=== PATIENT | male | born 1940 | race Two or more races ===

== ENCOUNTER 2016-11-18 07:25 | Inpatient (IN) | payer MEDICAID ==
[~2016-11-18] VITALS: Ht 172.7 cm; Wt 87.1 kg
--- NOTE | 2016-11-18 07:35 | Emergency Room Report ---
History of Present Illness General Chief Complaint: Abnormal Labs Source: Medical Record, EMS Present Illness HPI Patient is a 76-year-old male brought in by EMS for abnormal laboratory values. Patient is trach and vent dependent. Patient had the previously been noted to have elevated BUN/creatinine. 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 He recently finished Bactrim. The patient was noted to be making urine. Patient had not been having any black stools. He had not been vomiting. The patient reportedly had prior history of anemia Allergies: Coded Allergies: PIPERACILLIN (Verified Allergy, Unknown, 11/18/16) TAZOBACTAM (Verified Allergy, Unknown, 11/18/16) Patient History Past Medical History: see triage record Reviewed Nursing Documentation: PMH: Agreed, PSxH: Agreed Review of Systems All Other Systems: negative except mentioned in HPI Physical Exam Vital Signs Date Time Temp Pulse Resp B/P Pulse Ox O2 Delivery O2 Flow Rate FiO2 11/18/16 07:19 102 20 115/66 98 Mechanical Ventilator 100 Sp02 EP Interpretation: reviewed, normal General Appearance: normal inspection, no apparent distress, alert, Chronically Ill Head: atraumatic ENT: normal ENT inspection Neck: normal inspection, supple, no bony tend, tracheotomy Respiratory: normal inspection, lungs clear, normal breath sounds, no respiratory distress, no retraction, no wheezing Cardiovascular #1: regular rate, rhythm, edema Gastrointestinal: normal inspection, normal bowel sounds, no guarding, no hernia, other - gtube c/d/i Genitourinary: no CVA tenderness, other - scrotal edema Musculoskeletal: normal inspection, back normal, normal range of motion Neurologic: motor weakness - bilateral extensor contracture lower extremity, slight hand edema Psychiatric: other Skin: normal inspection, normal color, no rash Medical Decision Making Diagnostic Impression: Primary Impression: Acute kidney injury Additional Impressions: Urinary tract infection Ventilator dependent Feeding by G-tube Anemia Scrotal edema ER Course Patient presented for abnormal laboratory value. Differential diagnosis included but was not limited to acute renal injury, dehydration, prerenal azotemia, GI bleeding among others. Because of complexity of patient's case laboratory testing and imaging studies were ordered. The patient was noted be taken vent dependent he was started on mechanical ventilation. Laboratory testing was ordered.The patient was given IV antibiotics. Patient was noted to be moderately anemic. The BUN was noted be markedly elevated. Patient had guaiac-negative stool. Stool is light in color. The patient noted have some urinary tract infection. He was given antibiotics.Dr. Wise was contacted for inpatient management due to complexity of medical condition. Labs Test 11/18/16 07:42 11/18/16 08:00 White Blood Count 10.9 K/UL (4.8-10.8) Red Blood Count 3.11 M/UL (4.70-6.10) Hemoglobin 8.2 G/DL (14.2-18.0) Hematocrit 24.6 % (42.0-52.0) Mean Corpuscular Volume 79 FL (80-99) Mean Corpuscular Hemoglobin 26.5 PG (27.0-31.0) Mean Corpuscular Hemoglobin Concent 33.4 G/DL (32.0-36.0) Red Cell Distribution Width 16.3 % (11.6-14.8) Platelet Count 607 K/UL (150-450) Mean Platelet Volume 7.1 FL (6.5-10.1) Neutrophils (%) (Auto) 67.7 % (45.0-75.0) Lymphocytes (%) (Auto) 12.2 % (20.0-45.0) Monocytes (%) (Auto) 15.7 % (1.0-10.0) Eosinophils (%) (Auto) 3.0 % (0.0-3.0) Basophils (%) (Auto) 1.4 % (0.0-2.0) Sodium Level 129 mEQ/L (135-145) Potassium Level 3.9 mEQ/L (3.4-4.9) Chloride Level 87 mEQ/L (98-107) Carbon Dioxide Level 25 mEQ/L (20-30) Anion Gap 17 (5-15) Blood Urea Nitrogen 158 mg/dL (7-23) Creatinine 1.7 mg/dL (0.7-1.2) Estimat Glomerular Filtration Rate mL/min (>60) Glucose Level 142 mg/dL (74-106) Lactic Acid Level 1.60 mmol/L (0.66-2.22) Calcium Level 9.7 mg/dL (8.6-10.2) Total Bilirubin 0.5 mg/dL (0.0-1.2) Aspartate Amino Transf (AST/SGOT) 54 U/L (5-40) Alanine Aminotransferase (ALT/SGPT) 32 U/L (3-41) Alkaline Phosphatase 449 U/L (40-129) Total Creatine Kinase 23 U/L (38-174) Creatine Kinase MB 2.0 ng/mL (< 6.7) Creatine Kinase MB Relative Index 8.6 Troponin I < 0.30 ng/mL (<=0.30) Total Protein 6.4 g/dL (6.6-8.7) Albumin 2.2 g/dL (3.5-5.2) Globulin 4.2 g/dL Albumin/Globulin Ratio 0.5 (1.0-2.7) Urine Color Yellow Urine Appearance Clear Urine pH 5 (4.5-8.0) Urine Specific [place] 1.010 (1.005-1.035) Urine Protein 1+ (NEGATIVE) Urine Glucose (UA) Negative (NEGATIVE) Urine Ketones Negative (NEGATIVE) Urine Occult Blood 1+ (NEGATIVE) Urine Nitrite Negative (NEGATIVE) Urine Bilirubin Negative (NEGATIVE) Urine Urobilinogen Normal MG/DL (0.0-1.0) Urine Leukocyte Esterase 3+ (NEGATIVE) Urine RBC 2-4 /HPF (0 - 0) Urine WBC 5-10 /HPF (0 - 0) Urine Squamous Epithelial Cells Occasional /LPF Urine Amorphous Sediment Few /LPF (NONE) Urine Bacteria Few /HPF (NONE) Urine Yeast Few /HPF (NONE) EKG Diagnostic Results Rate: tachycardiac Rhythm: NSR ST Segments: no acute changes Rhythm Strip Diag. Results EP Interpretation: yes Rhythm: NSR, no PVC's, no ectopy Last Vital Signs Date Time Temp Pulse Resp B/P Pulse Ox O2 Delivery O2 Flow Rate FiO2 11/18/16 07:19 102 20 115/66 98 Mechanical Ventilator 100 Status: unchanged Disposition: ADMITTED INPATIENT Condition: Estiven Avalos Nov 18, 2016 07:35
[2016-11-18 07:56] LABS: BASOPHILS % (AUTO) 1.4 % (0.0-2.0); LYMPHOCYTES % (AUTO) 12.2 % (20.0-45.0); MEAN CORPUSCULAR HEMOGLOBIN 26.5 PG (27.0-31.0); MEAN CORPUSCULAR HGB CONC 33.4 G/DL (32.0-36.0); MEAN CORPUSCULAR VOLUME 79 FL (80-99); MEAN PLATELET VOLUME 7.1 FL (6.5-10.1); MONOCYTES % (AUTO) 15.7 % (1.0-10.0); NEUTROPHILS % (AUTO) 67.7 % (45.0-75.0); PLATELET COUNT 607 K/UL (150-450); RED BLOOD COUNT 3.11 M/UL (4.70-6.10); RED CELL DISTRIBUTION WIDTH 16.3 % (11.6-14.8); WHITE BLOOD COUNT 10.9 K/UL (4.8-10.8)
[2016-11-18] MEDS ORDERED: ARTIFICIAL TEAR15 ML BOTH EYES (08:00)
[2016-11-18] MEDS ORDERED: FERROUS FUMARA324 M1 GT (08:00)
[2016-11-18] MEDS ORDERED: PROCRIT10000 UNIT SUBQ (08:00)
[2016-11-18] MEDS ORDERED: ASPIRIN81 MG GT (08:00)
[2016-11-18] MEDS ORDERED: HYDRALAZINE HCL50 MG GT (08:00)
[2016-11-18] MEDS ORDERED: acetaminophen GT (08:00)
[2016-11-18] MEDS ORDERED: LOVENOX10 M4 SUBQ (08:00)
[2016-11-18] MEDS ORDERED: NEXIUM40 MG GT (08:00)
[2016-11-18] MEDS ORDERED: FLEET ENEMA133 ML RECTAL (08:00)
[2016-11-18 08:05] LABS: ALANINE AMINOTRANSFERASE 32 U/L (3-41); ALBUMIN/GLOBULIN RATIO 0.5 (1.0-2.7); ANION GAP 17 (5-15); ASPARTATE AMINO TRANSFERASE 54 U/L (5-40); CALCIUM 9.7 mg/dL (8.6-10.2); CARBON DIOXIDE 25 mEQ/L (20-30); CHLORIDE 87 mEQ/L (98-107); CREATININE 1.7 mg/dL (0.7-1.2); HEMOLYSIS 29; POTASSIUM 3.9 mEQ/L (3.4-4.9); SODIUM 129 mEQ/L (135-145); TOTAL PROTEIN 6.4 g/dL (6.6-8.7); TROPONIN I < 0.30 ng/mL (<=0.30)
[2016-11-18] MEDS ORDERED: TAMSULOSIN HCL0.4 MG GT (08:05)
[2016-11-18] MEDS ORDERED: ZOFRAN4 M3 GT (08:05)
[2016-11-18] MEDS ORDERED: LACTINEX CHEWA1 EACH GT (08:05)
[2016-11-18] MEDS ORDERED: METOPROLOL TART50 M1 GT (08:05)
[2016-11-18] MEDS ORDERED: ZINC SULFATE220 M1 GT (08:05)
[2016-11-18] MEDS ORDERED: METHIMAZOLE5 MG GT (08:05)
[2016-11-18] MEDS ORDERED: LACTULOSE20 GM/301 GT (08:05)
[2016-11-18] MEDS ORDERED: MIRALAX17 G2 GT (08:05)
[2016-11-18 08:14] VITALS: BP 129/63
[2016-11-18 08:15] LABS: APPEARANCE,URINE CLEAR; KETONES,URINE NEGATIVE (NEGATIVE); LEUKOCYTE ESTERASE ,URINE 3+ (NEGATIVE); NITRITE,URINE NEGATIVE (NEGATIVE); PH,URINE 5 (4.5-8.0); PROTEIN,URINE 1+ (NEGATIVE); UROBILINOGEN,URINE NORMAL MG/DL (0.0-1.0)
[2016-11-18 08:26] LABS: AMORPHOUS SEDIMENT,UR FEW /LPF; BACTERIA,URINE FEW /HPF; SQUAMOUS EPITHELIAL CELL,UR OCCASIONAL /LPF (NONE/OCC); YEAST,URINE FEW /HPF
[2016-11-18 08:30] VITALS: BP 133/72
[2016-11-18] MEDS ORDERED: Miralax 17gm pkt ORAL PRN (09:45)
[2016-11-18] MEDS ORDERED: LORazepam Inj 2mg/ml 1ml IV PRN (09:45)
[2016-11-18] MEDS ORDERED: Morphine Sulfate 4mg/ml Inj IVP PRN (09:45)
[2016-11-18] MEDS ORDERED: DuoNeb 0.5-3(2.5)mg/3ml neb HHN PRN (09:45)
[2016-11-18] MEDS ORDERED: cefTRIAXone 1 GM in D5W 55 ML IVPB ONE (10:00)
[2016-11-18 10:30] VITALS: BP 141/73
--- NOTE | 2016-11-18 10:57 | Diagnostic Imaging Report ---
Indication: Dyspnea Comparison: None A single view chest radiograph was obtained. Findings: Pulmonary edema demonstrated with moderate bilateral pleural effusions, cardiomegaly and tracheostomy. The bones are osteopenic. Impression: Interstitial pulmonary edema. Moderate bilateral pleural effusion suspected
--- NOTE | 2016-11-18 11:01 | History and Physical ---
History of Present Illness General Date patient seen: Nov 18, 2016 Reason for Hospitalization: Abnormal Labs Present Illness HPI 76-year-old male with hx of chronic trach/vent/peg, anoxic brain injury after cardiac arrest, bed bound in detention brought in by EMS for abnormal laboratory values. He was found be severely anemia with very high BUN/ creatinine and bilateral large pleural effusion. Pt can't give any history. Looks extremely cachectic and chronically ill. Allergies: Coded Allergies: PIPERACILLIN (Verified Allergy, Unknown, 11/18/16) TAZOBACTAM (Verified Allergy, Unknown, 11/18/16) Medication History Scheduled Acidophilus/Bulgaricus (Lactinex Chewable Tablet), 1 EACH GT THREE TIMES A DAY, (Reported) Aspirin* (Aspirin*), 81 MG GT DAILY, (Reported) Dextran 70/Hypromellose (Artificial Tears Eye Drops*), 1 DROP BOTH EYES BID, ( Reported) Enoxaparin* (Lovenox*), 40 MG SUBQ DAILY, (Reported) Epoetin Anish (Procrit), 10,000 UNIT SUBQ 3XW, (Reported) Esomeprazole Magnesium (Nexium), 40 MG GT DAILY, (Reported) Ferrous Fumarate (Ferrous Fumarate), 324 MG GT THREE TIMES A DAY, (Reported) Hydralazine Hcl* (Hydralazine Hcl*), 50 MG GT BID, (Reported) Methimazole (Methimazole), 7.5 MG GT DAILY, (Reported) Metoprolol Tartrate* (Metoprolol Tartrate*), 50 MG GT EVERY 12 HOURS, (Reported) Tamsulosin Hcl (Tamsulosin Hcl*), 0.4 MG GT BEDTIME, (Reported) Zinc Sulfate (Zinc Sulfate*), 220 MG GT DAILY, (Reported) Scheduled PRN Lactulose (Lactulose*), 30 ML GT DAILY PRN for Constipation, (Reported) Na Phos,M-B/Na Phos,Di-Ba* (Fleet Enema*), 133 ML RECTAL DAILY PRN for Constipation, (Reported) Ondansetron* (Zofran*), 4 MG GT Q8HR PRN for Nausea & Vomiting, (Reported) Polyethylene Glycol 3350* (Miralax*), 17 GM GT DAILY PRN for Constipation, ( Reported) [acetaminophen], 650 MG GT Q6HR PRN for Mild Pain (Pain Scale 1-3), (Reported) Patient History Healthcare decision maker Resuscitation status Advanced Directive on File Past Medical/Surgical History Past Medical/Surgical History: (1) Feeding by G-tube (2) Anemia (3) Ventilator dependent Review of Systems All Other Systems: negative except mentioned in HPI Physical Exam General Appearance: cachetic Lines, tubes and drains: peripheral HEENT: normocephalic, atraumatic Neck: non-tender, normal alignment Respiratory/Chest: chest wall non-tender, lungs clear Breasts: no masses Cardiovascular/Chest: normal peripheral pulses Abdomen: normal bowel sounds, non tender Genitourinary/Rectal: normal genital exam Extremities: normal range of motion Skin Exam: normal pigmentation Last 24 Hour Vital Signs Date Time Temp Pulse Resp B/P Pulse Ox O2 Delivery O2 Flow Rate FiO2 11/18/16 10:22 100 20 132/71 99 Mechanical Ventilator 40 11/18/16 08:30 99 20 40 11/18/16 08:30 99 20 133/72 97 Mechanical Ventilator 40 11/18/16 08:14 98.8 102 20 129/63 97 Mechanical Ventilator 11/18/16 07:40 40 11/18/16 07:40 102 20 Mechanical Ventilator 11/18/16 07:30 104 20 40 11/18/16 07:19 102 20 115/66 98 Mechanical Ventilator 100 Laboratory Tests Test 11/18/16 07:42 11/18/16 08:00 White Blood Count 10.9 K/UL (4.8-10.8) H Red Blood Count 3.11 M/UL (4.70-6.10) L Hemoglobin 8.2 G/DL (14.2-18.0) L Hematocrit 24.6 % (42.0-52.0) L Mean Corpuscular Volume 79 FL (80-99) L Mean Corpuscular Hemoglobin 26.5 PG (27.0-31.0) L Mean Corpuscular Hemoglobin Concent 33.4 G/DL (32.0-36.0) Red Cell Distribution Width 16.3 % (11.6-14.8) H Platelet Count 607 K/UL (150-450) H Mean Platelet Volume 7.1 FL (6.5-10.1) Neutrophils (%) (Auto) 67.7 % (45.0-75.0) Lymphocytes (%) (Auto) 12.2 % (20.0-45.0) L Monocytes (%) (Auto) 15.7 % (1.0-10.0) H Eosinophils (%) (Auto) 3.0 % (0.0-3.0) Basophils (%) (Auto) 1.4 % (0.0-2.0) Sodium Level 129 mEQ/L (135-145) L Potassium Level 3.9 mEQ/L (3.4-4.9) Chloride Level 87 mEQ/L (98-107) L Carbon Dioxide Level 25 mEQ/L (20-30) Anion Gap 17 (5-15) H Blood Urea Nitrogen 158 mg/dL (7-23) H Creatinine 1.7 mg/dL (0.7-1.2) H Estimat Glomerular Filtration Rate mL/min (>60) Glucose Level 142 mg/dL (74-106) H Lactic Acid Level 1.60 mmol/L (0.66-2.22) Calcium Level 9.7 mg/dL (8.6-10.2) Total Bilirubin 0.5 mg/dL (0.0-1.2) Aspartate Amino Transf (AST/SGOT) 54 U/L (5-40) H Alanine Aminotransferase (ALT/SGPT) 32 U/L (3-41) Alkaline Phosphatase 449 U/L (40-129) H Total Creatine Kinase 23 U/L (38-174) L Creatine Kinase MB 2.0 ng/mL (< 6.7) Creatine Kinase MB Relative Index 8.6 Troponin I < 0.30 ng/mL (<=0.30) Total Protein 6.4 g/dL (6.6-8.7) L Albumin 2.2 g/dL (3.5-5.2) L Globulin 4.2 g/dL Albumin/Globulin Ratio 0.5 (1.0-2.7) L Urine Color Yellow Urine Appearance Clear Urine pH 5 (4.5-8.0) Urine Specific [place] 1.010 (1.005-1.035) Urine Protein 1+ (NEGATIVE) H Urine Glucose (UA) Negative (NEGATIVE) Urine Ketones Negative (NEGATIVE) Urine Occult Blood 1+ (NEGATIVE) H Urine Nitrite Negative (NEGATIVE) Urine Bilirubin Negative (NEGATIVE) Urine Urobilinogen Normal MG/DL (0.0-1.0) Urine Leukocyte Esterase 3+ (NEGATIVE) H Urine RBC 2-4 /HPF (0 - 0) H Urine WBC 5-10 /HPF (0 - 0) H Urine Squamous Epithelial Cells Occasional /LPF Urine Amorphous Sediment Few /LPF (NONE) H Urine Bacteria Few /HPF (NONE) Urine Yeast Few /HPF (NONE) H Height (Feet): 5 Height (Inches): 8.00 Weight (Pounds): 170 Medications Current Medications Medications (Trade) Dose Ordered Sig/Jose Luis Route PRN Reason Start Time Stop Time Status Last Admin Dose Admin Acetaminophen (Tylenol) 650 mg Q4H PRN ORAL FEVER 11/18/16 09:45 12/18/16 09:44 Albuterol/ Ipratropium 3 ml 3 ml EVERY 4 HOURS PRN HHN Shortness of Breath 11/18/16 09:45 11/23/16 09:44 Aztreonam 1 gm/ Sodium Chloride 55 ml @ 110 mls/hr EVERY 8 HOURS IVPB 11/18/16 14:00 11/25/16 13:59 UNV Dextrose (Dextrose 50%) STAT PRN IV Hypoglycemia 11/18/16 09:45 12/18/16 09:44 Heparin Sodium (Porcine) (Heparin 5000 units/ml) 5,000 units EVERY 12 HOURS SUBQ 11/18/16 21:00 12/18/16 20:59 Hydralazine HCl (Apresoline) 50 mg Q12HR GT 11/18/16 21:00 12/18/16 20:59 Levofloxacin 100 ml @ 100 mls/hr Q24H IVPB 11/18/16 09:45 11/25/16 09:44 UNV Lorazepam (Ativan 2mg/ml 1ml) 2 mg EVERY 2 HOURS PRN IV For Anxiety 11/18/16 09:45 11/25/16 09:44 Methimazole (Tapazole) 7.5 mg DAILY GT 11/18/16 12:00 12/18/16 11:59 Morphine Sulfate (Morphine Sulfate) 4 mg EVERY 4 HOURS PRN IVP Severe Pain (Pain Scale 7-10) 11/18/16 09:45 11/25/16 09:44 Ondansetron HCl (Zofran) 4 mg Q6H PRN IVP Nausea & Vomiting 11/18/16 09:45 12/18/16 09:44 Pantoprazole 40 mg 40 mg DAILY IV 11/19/16 09:00 12/19/16 08:59 Polyethylene Glycol (Miralax) 17 gm DAILYPRN PRN ORAL Constipation 11/18/16 09:45 12/18/16 09:44 Sodium Chloride (Sodium Chloride 1000ml bag) 1,000 ml @ 200 mls/hr Q5H IV 11/18/16 11:00 12/18/16 10:59 Tamsulosin HCl (Flomax) 0.4 mg BEDTIME GT 11/18/16 21:00 12/18/16 20:59 Vancomycin HCl 1 gm/Dextrose 275 ml @ 183.3 mls/ hr Q8HR IVPB 11/18/16 14:00 11/23/16 13:59 UNV Vancomycin HCl/ Dextrose (Vancomycin/D5W) 275 ml @ 183.3 mls/ hr Q24H IV 11/19/16 23:00 11/24/16 22:59 UNV Assessment/Plan Problem List: (1) Acute and chronic respiratory failure ICD Codes: J96.20 - Acute and chronic respiratory failure, unspecified whether with hypoxia or hypercapnia SNOMED: 04969836, 84116379 (2) ATN (acute tubular necrosis) ICD Codes: N17.0 - Acute kidney failure with tubular necrosis SNOMED: 49631309 (3) Bilateral pleural effusion ICD Codes: J90 - Pleural effusion, not elsewhere classified SNOMED: 566938694 (4) Feeding by G-tube ICD Codes: Z93.1 - Gastrostomy status SNOMED: 469729906, 993849411 (5) Anemia ICD Codes: D64.9 - Anemia, unspecified SNOMED: 709759242 Assessment/Plan IV hydration check electrolytes thoracentesis check cultures dvt prophylaxis titrate vent setting Gtube feeding Echo family meeting about end of life issues. TRACI HAILE Nov 18, 2016 11:01
--- NOTE | 2016-11-18 11:18 | Consultation ---
Consult Note Consult Note ID Dic# [id number] SHIV CARDOZA M.D. Nov 18, 2016 11:18
[2016-11-18 11:38] LABS: PROTHROMBIN TIME 10.7 SEC (9.30-11.50)
[2016-11-18 12:00] VITALS: BP 139/71
[2016-11-18] MEDS: Methimazole 5mg tab GT SCH (12:52)
[2016-11-18] MEDS: Vancomycin 1 GM in D5W 275 ML IVPB SCH (12:53)
--- NOTE | 2016-11-18 13:08 | Cardiology Report ---
APPROVED REPORT EKG Measurement Heart [id number] Sinus tachycardia Right bundle branch block Inferior infarct, age undetermined Abnormal ECG
--- NOTE | 2016-11-18 13:10 | Cardiology Report ---
APPROVED REPORT EXAM: Two-dimensional and M-mode echocardiogram with Doppler and color Doppler. INDICATION LV function Technically difficult study due to very poor acoustical windows. M-mode measurements of left ventricle not obtainable due to cardiac position (angle) Normal left ventricular chamber size, systolic function and wall motion to extent visualized. Left ventricular ejection fraction grossly estimated to be 55 %. Study quality precludes accurate assessment of regional wall motion. Mild left ventricular hypertrophy by 2-D. Anterior Echo-free space, may be due to pericardial fat or effusion. large pleural effusion with mobile debris noted. All other cardiac chamber sizes are within normal limits. Focal aortic valve sclerosis with probably adequate cusp excursion. Thickened mitral valve leaflets with normal excursion. Mitral annulus and aortic root calcification. Pulmonic valve not well visualized. Normal tricuspid valve structure. IVC dilated at 2.4 cm with physiologic collapse suggestive of increased RA pressure. A color flow and spectral Doppler study was performed and revealed: Trace mitral regurgitation. Mitral diastolic velocities suggest reduced left ventricular relaxation c/w mild LV diastolic dysfunction (Grade I). Trace tricuspid regurgitation. Tricuspid systolic velocities suggests peak right ventricular systolic pressure of 18 mmHg.
[2016-11-18] MEDS ORDERED: Vancomycin 1 GM in D5W 275 ML IVPB SCH (14:00)
--- NOTE | 2016-11-18 14:47 | Diagnostic Imaging Report ---
APPROVED REPORT CPT Code: 60962 Present Symptoms Lower Extremity Edema: Bilateral RIGHT LEG: Venous imaging reveals acute non occlusive thrombus in the distal popliteal vein. Imaging also reveals patency of the common femoral and calf veins. The greater saphenous vein is within normal limits. LEFT LEG: Venous imaging reveals a patent deep venous system. There is no evidence of thrombus within the femoral, popliteal or tibial segments. The greater saphenous vein is also within normal limits. Doppler indicates normal spontaneous flow within these segments. ELPIDIO Fermin was notified of abnormal results at 1300 hours.
[2016-11-18] MEDS: Aztreonam Inj 1 GM in NS 55 ML IVPB SCH ×2 (14:50→22:35)
[2016-11-18 16:00] VITALS: BP 119/66
--- NOTE | 2016-11-18 16:12 | Diagnostic Imaging Report ---
Indications: Pleural effusion Technique: Ultrasound used to localize optimal puncture site. Sterile prepping and draping of the left lower chest performed. Local anesthesia with 1% lidocaine. Dermatotomy made. Puncture of the pleural space using thoracentesis needle. Stylet removed. Catheter placed to vacuum bottle suction. Fluid was aspirated. Patient tolerated procedure well, without immediate complication. Findings: Followup sonography demonstrates complete resolution of pleural fluid. Followup chest x-ray is pending. Impression: Successful ultrasound-guided left thoracentesis, yielding 3.3 liters of fluid
--- NOTE | 2016-11-18 16:37 | Diagnostic Imaging Report ---
Indication: Status post thoracentesis Comparison: 11/18/16 A single view chest radiograph was obtained. Findings: There is a large left basilar pneumothorax following large volume thoracentesis of 3.3 L. The visceral pleura is thickened. There is left basilar non-expansion of the lung. The lung is suspected of being either trapped or atelectatic. There procedure was not complicated as there was a very large effusion and target. There is little to no chance the needle traversed the visceral pleura. Impression: Left pneumothorax following large volume thoracentesis. 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 Patient remains asymptomatic and vital signs are stable. Patient will be monitored and chest x-ray repeated tomorrow. Findings discussed with Dr. Wise via telephone.
--- NOTE | 2016-11-18 16:48 | Consultation ---
Consult Note Consult Note Asked to evaluate for renal failure ? HPI Patient is a 76-year-old male brought in by EMS for abnormal laboratory values. Patient is trach and vent dependent. Patient had the previously been noted to have elevated BUN/creatinine. 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 He recently finished Bactrim. The patient was noted to be making urine. Patient had not been having any black stools. He had not been vomiting. The patient reportedly had prior history of anemia Allergies: Coded Allergies: PIPERACILLIN (Verified Allergy, Unknown, 11/18/16) TAZOBACTAM (Verified Allergy, Unknown, 11/18/16) Vital Signs Date Time Temp Pulse Resp B/P Pulse Ox O2 Delivery O2 Flow Rate FiO2 11/18/16 07:19 102 20 115/66 98 Mechanical Ventilator 100 Sp02 EP Interpretation: reviewed, normal General Appearance: normal inspection, no apparent distress, alert, Chronically Ill Head: atraumatic ENT: normal ENT inspection Neck: normal inspection, supple, no bony tend, tracheotomy Respiratory: normal inspection, lungs clear, normal breath sounds, no respiratory distress, no retraction, no wheezing Cardiovascular #1: regular rate, rhythm, edema Gastrointestinal: normal inspection, normal bowel sounds, no guarding, no hernia, other - gtube c/d/i Genitourinary: no CVA tenderness, other - scrotal edema Musculoskeletal: normal inspection, back normal, normal range of motion Neurologic: motor weakness - bilateral extensor contracture lower extremity, slight hand edema Psychiatric: other Skin: normal inspection, normal color, no rash . Assessment/Plan status: Acute renal failure- Anemia- Chronic Respiratory failure- Hypoalbuminemia- S/P CVA and [employer] leading to anoxic Encephalopathy- Evidence of UTI Bilateral Pleural effusion Plan: Slow Hydrate- Anemia correia- Transfuse if needed Monitor renal parameters- Per consultants SUNITA MITCHELL Nov 18, 2016 16:48
[2016-11-18] MEDS: Pantoprazole Inj IV SCH ×2 (17:00→18:07)
--- NOTE | 2016-11-18 17:02 | Diagnostic Imaging Report ---
Indication:Abdominal pain Technique: Grayscale and duplex Doppler imaging of the abdomen performed. Comparison: None Findings: There are gallstones demonstrated. Sonographic Puente's is negative per technologist. Patient is attended and not able to obtain sonographic Puente's. Aorta is not visualized. Bilateral pleural effusions are present. There is mild ascites present. CBD is 7 mm. There is no hydronephrosis. Kidneys appear somewhat echogenic. Please correlate clinically. Spleen is normal in size. Impression: Echogenic kidneys. Medical renal disease may be present. Please correlate clinically. Cholelithiasis with some thickening of the wall of the gallbladder. Cholecystitis not excluded. Sonographic Puente's is not possible as the patient is attended. Bilateral pleural effusions Mild ascites.
--- NOTE | 2016-11-18 19:15 | Consultation ---
DATE OF CONSULTATION: INFECTIOUS DISEASE CONSULTATION CONSULTING PHYSICIAN: Abimael Gold M.D. REQUESTING PHYSICIAN: Otto Wise M.D. REASON FOR CONSULTATION: Pneumonia, sepsis, and antibiotic management. HISTORY OF PRESENT ILLNESS: The patient is a 76-year-old male with multiple medical problems, who was brought to this medical center by EMS due to elevated BUN and creatinine. The patient was found to have bilateral pleural effusion and mild increase of white blood cells. An Infectious Diseases consultation has been requested for possible pneumonia, sepsis, and antibiotic management. The patient is not able to provide information, information is gathered through the chart and speaking to the staff. PAST MEDICAL HISTORY: 1. Encephalopathy. 2. Seizure disorder. 3. History of myocardial infarction. 4. Anemia. 5. Status vent and trach dependent respiratory failure. 6. Status post PEG. 7. Diabetes. MEDICATION: Aztreonam, vancomycin, and Levaquin. ALLERGY: Piperacillin. FAMILY HISTORY: Unavailable. SOCIAL HISTORY: The patient lives in shelter. REVIEW OF SYSTEMS: Unobtainable. PHYSICAL EXAMINATION: VITAL SIGNS: Temperature 99.8 degrees, blood pressure 120/60, pulse 63, and respiratory rate 18. HEENT: Mild pale conjunctivae. NECK: No lymphadenopathy. CHEST: Coarse breathing sounds, decreased in bilateral lower lungs. HEART: S1 and S2. ABDOMEN: Soft. PEG tube in place. EXTREMITIES: No cyanosis. NEUROLOGIC: Nonverbal. LABORATORY DATA: White blood cells 10.9, hemoglobin 8.3, and platelets 607,000. UA, 5 to 10 white blood cells. BUN 158 and creatinine 1.7. AST 54, ALT 32, and alkaline phosphatase of 449. Chest x-ray showed interstitial edema and moderate bilateral pleural effusion. ASSESSMENT: The patient is a 76-year-old male with multiple medical problems, who has been admitted to this medical center with dehydration, bilateral pleural effusion, cannot rule out underlying pneumonia. In view of the patient being on the vent, he has a risk of ventilator-associated pneumonia. 1. Possible ventilator-associated pneumonia. 2. Bilateral pleural effusion, rule out empyema. 3. Elevated alkaline phosphatase, rule out biliary disease/obstruction. 4. Mild leukocytosis. 5. Afebrile. PLAN: 1. We will continue the patient on IV vancomycin, Levaquin, and Azactam. 2. Monitor CBC. 3. Monitor BMP. 4. Monitor cultures (blood and sputum). 5. Ultrasound of the abdomen. 6. Monitor liver function tests. 7. Based on the patient's clinical course and laboratories, we will do further recommendation. Thank you, Dr. Wise, for allowing me to participate in the care of this patient. I will follow the patient with you during this hospitalization. Abimael Gold M.D. DR: HUGO JOB#: [id number] CC:
[2016-11-18 20:00] VITALS: BP 133/76
[2016-11-18 20:43] LABS: APPEARANCE, BODY FLUID BLOODY; BD FL SOURCE THORACENTESIS; BD FL VOLUME 24 mL; BODY FLUID NUCLEATED CELLS 63 /CUMM; BODY FLUID RBC 51800 /CUMM; MONONUCLEAR WBC 53 %; POLYMORPHONUCLEAR WBC 41 %
[2016-11-18] MEDS ORDERED: HydrALAZINE 50mg tab GT SCH (21:00)
[2016-11-18] MEDS: Tamsulosin 0.4mg cap GT SCH (21:18)
[2016-11-18] MEDS: Heparin 5000 units/ml inj SUBQ SCH (21:19)
[2016-11-18] MEDS: HydrALAZINE 25mg tab GT SCH (22:33)
[2016-11-19] VITALS: BP 145/66
[2016-11-19 04:00] VITALS: BP 138/69
[2016-11-19 04:42] LABS: BASOPHILS % (AUTO) 1.7 % (0.0-2.0); EOSINOPHILS % (AUTO) 1.3 % (0.0-3.0); LYMPHOCYTES % (AUTO) 9.5 % (20.0-45.0); MEAN CORPUSCULAR HEMOGLOBIN 25.9 PG (27.0-31.0); MEAN CORPUSCULAR HGB CONC 32.2 G/DL (32.0-36.0); MEAN CORPUSCULAR VOLUME 80 FL (80-99); MEAN PLATELET VOLUME 7.1 FL (6.5-10.1); MONOCYTES % (AUTO) 13.6 % (1.0-10.0); PLATELET COUNT 641 K/UL (150-450); RED CELL DISTRIBUTION WIDTH 16.5 % (11.6-14.8); WHITE BLOOD COUNT 11.9 K/UL (4.8-10.8)
[2016-11-19 05:38] LABS: THYROID STIMULATING HORMONE 0.013 uIU/mL (0.300-4.500)
[2016-11-19 05:44] LABS: ALANINE AMINOTRANSFERASE 26 U/L (3-41); ALBUMIN/GLOBULIN RATIO 0.4 (1.0-2.7); ANION GAP 12 (5-15); ASPARTATE AMINO TRANSFERASE 39 U/L (5-40); CALCIUM 9.5 mg/dL (8.6-10.2); CARBON DIOXIDE 25 mEQ/L (20-30); CHLORIDE 92 mEQ/L (98-107); CHOLESTEROL 101 mg/dL (< 200); CHOLESTEROL/HDL RATIO 3.3 (3.3-4.4); CREATININE 1.6 mg/dL (0.7-1.2); CRP QUANT 13.4 mg/dL (< 0.5); LDL CHOLESTEROL (CALC.) 47 mg/dL (60-99); MAGNESIUM 2.8 mg/dL (1.7-2.5); PHOSPHORUS 4.7 mg/dL (2.5-4.8); POTASSIUM 3.2 mEQ/L (3.4-4.9); SODIUM 129 mEQ/L (135-145); URIC ACID 16.3 mg/dL (3.0-7.5)
[2016-11-19 05:50] LABS: HEMOLYSIS 13; IRON 24 ug/dL (59-158); TOTAL IRON BINDING CAPACITY 147 ug/dL (250-400)
[2016-11-19 06:05] LABS: FERRITIN 1023 ng/mL (10-230)
[2016-11-19] MEDS: Aztreonam Inj 1 GM in NS 55 ML IVPB SCH ×3 (06:15→22:06)
[2016-11-19] MEDS: HydrALAZINE 25mg tab GT SCH ×3 (06:15→22:06)
[2016-11-19 08:00] VITALS: BP 132/71
[2016-11-19] MEDS: Methimazole 5mg tab GT SCH (08:55)
[2016-11-19] MEDS: Pantoprazole Inj IV SCH ×2 (08:56→17:42)
[2016-11-19] MEDS: Heparin 5000 units/ml inj SUBQ SCH ×2 (08:56→20:30)
[2016-11-19] MEDS ORDERED: Pantoprazole Inj IV SCH (09:00)
[2016-11-19] MEDS ORDERED: NS 275ml ONE (10:22)
[2016-11-19] MEDS ORDERED: Tubing IV Secondary IV ONE (10:22)
--- NOTE | 2016-11-19 10:57 | Pulmonology Progress Note ---
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, consultants, caseworker protective services Subjective ROS Limited/Unobtainable: Yes Constitutional: Reports: no symptoms HEENT: Repors: no symptoms Allergies: Coded Allergies: PIPERACILLIN (Verified Allergy, Unknown, 11/18/16) TAZOBACTAM (Verified Allergy, Unknown, 11/18/16) Objective Last 24 Hour Vital Signs Date Time Temp Pulse Resp B/P Pulse Ox O2 Delivery O2 Flow Rate FiO2 11/19/16 09:09 110 14 40 11/19/16 08:00 98.1 110 14 132/71 100 Mechanical Ventilator 40 11/19/16 08:00 109 11/19/16 08:00 40 11/19/16 07:17 107 14 40 11/19/16 06:15 138/69 11/19/16 05:11 102 14 40 11/19/16 04:00 40 11/19/16 04:00 97.7 94 15 138/69 100 Nasal Cannula 11/19/16 04:00 102 11/19/16 03:09 105 14 40 11/19/16 00:53 98 14 40 11/19/16 00:00 40 11/19/16 00:00 97.7 107 14 145/66 99 Nasal Cannula 11/19/16 00:00 104 11/18/16 23:19 102 14 40 11/18/16 22:33 133/76 11/18/16 21:10 105 14 40 11/18/16 20:00 97.9 109 16 133/76 99 Nasal Cannula 11/18/16 20:00 40 11/18/16 20:00 107 11/18/16 19:24 107 14 40 11/18/16 16:46 93 14 40 11/18/16 16:00 99 11/18/16 16:00 40 11/18/16 16:00 98.1 102 14 119/66 98 Mechanical Ventilator 40 11/18/16 15:16 92 14 40 11/18/16 13:25 89 14 40 11/18/16 12:00 40 11/18/16 12:00 94 11/18/16 12:00 98.1 95 16 139/71 98 Mechanical Ventilator 40 11/18/16 11:40 85 14 40 Intake and Output 11/18/16 11/19/16 19:00 07:00 Intake Total 906.6 ml 1570 ml Output Total 4350 ml 1100 ml Balance -3443.4 ml 470 ml Intake Oral 0 ml Free Water 90 ml IV Total 876.6 ml 1200 ml Tube Feeding 30 ml 280 ml Output Urine Total 1050 ml 1100 ml Other 3300 ml General Appearance: cachetic HEENT: normocephalic, atraumatic Respiratory/Chest: chest wall non-tender, lungs clear, chest wall tender Cardiovascular: normal rate, no JVD Abdomen: normal bowel sounds, soft, non tender Genitourinary: normal external genitalia Skin: no rash Neurologic/Psychiatric: channel lip stiffener insoles II-XII grossly normal Microbiology Date/Time Source Procedure Growth Status 11/18/16 18:00 Pleural Fluid Gram Stain Pending Resulted 11/18/16 18:00 Pleural Fluid Body Fluid Culture - Preliminary NO GROWTH Resulted 11/18/16 12:00 Sputum Gram Stain - Final Resulted 11/18/16 12:00 Sputum Sputum Culture - Preliminary Resulted 11/18/16 08:00 Urine,Clean Catch Urine Culture - Preliminary NO GROWTH AFTER 24 HOURS Resulted Laboratory Tests 11/18/16 11:10: Prothrombin Time 10.7, Prothromb Time International Ratio 1.0, Activated Partial Thromboplast Time 31 11/18/16 18:00: Body Fluid Source Thoracentesis, Body Fluid Volume 24, Body Fluid Appearance Bloody, Body Fluid RBC [address], Body Fluid Total Nucleated Cells 63, Body Fluid Polynuclear WBCs (%) 41, Body Fluid Mononuclear WBCs (%) 53, Body Fluid Mesothelial Cells (%) 6, Body Fluid Glucose [Pending], Body Fluid Total Protein [Pending], Body Fluid Albumin [Pending] 11/19/16 03:45: White Blood Count 11.9H, Red Blood Count 3.10L, Hemoglobin 8.0L, Hematocrit 24.9L, Mean Corpuscular Volume 80, Mean Corpuscular Hemoglobin 25.9L, Mean Corpuscular Hemoglobin Concent 32.2, Red Cell Distribution Width 16.5H, Platelet Count 641H, Mean Platelet Volume 7.1, Neutrophils (%) (Auto) 74.0, Lymphocytes (%) (Auto) 9.5L, Monocytes (%) (Auto) 13.6H, Eosinophils (%) (Auto) 1.3, Basophils (%) (Auto) 1.7, Sodium Level 129L, Potassium Level 3.2L, Chloride Level 92L, Carbon Dioxide Level 25, Anion Gap 12, Blood Urea Nitrogen 144H, Creatinine 1.6H, Estimat Glomerular Filtration Rate , Glucose Level 150H, Uric Acid 16.3H, Calcium Level 9.5, Phosphorus Level 4.7, Magnesium Level 2.8H, Iron Level 24L, Total Iron Binding Capacity 147L, Percent Iron Saturation 16, Unsaturated Iron Binding 123, Ferritin 1023H, Total Bilirubin 0.5, Gamma Glutamyl Transpeptidase 145H, Aspartate Amino Transf (AST/SGOT) 39, Alanine Aminotransferase (ALT/SGPT) 26, Alkaline Phosphatase 343H, Total Creatine Kinase 41, C-Reactive Protein, Quantitative 13.4H, Pro-B-Type Natriuretic Peptide 6624H, Total Protein 6.0L, Albumin 1.8L, Globulin 4.2, Albumin/Globulin Ratio 0.4L, Triglycerides Level 116, Cholesterol Level 101, LDL Cholesterol 47L , HDL Cholesterol 31, Cholesterol/HDL Ratio 3.3, Vitamin B12 Level > 2000H, Folate [Pending], Thyroid Stimulating Hormone (TSH) 0.013L, Free Thyroxine 1.88H , Total Triiodothyronine 1.72 Current Medications Medications (Trade) Dose Ordered Sig/Jose Luis Route PRN Reason Start Time Stop Time Status Last Admin Dose Admin Acetaminophen (Tylenol) 650 mg Q4H PRN ORAL FEVER 11/18/16 09:45 12/18/16 09:44 Albuterol/ Ipratropium 3 ml 3 ml EVERY 4 HOURS PRN HHN Shortness of Breath 11/18/16 09:45 11/23/16 09:44 Aztreonam 1 gm/ Sodium Chloride 55 ml @ 110 mls/hr EVERY 8 HOURS IVPB 11/18/16 14:00 11/25/16 13:59 11/19/16 06:15 Dextrose STAT PRN IV Hypoglycemia 11/18/16 09:45 12/18/16 09:44 Heparin Sodium (Porcine) (Heparin 5000 units/ml) 5,000 units EVERY 12 HOURS SUBQ 11/18/16 21:00 12/18/16 20:59 11/19/16 08:56 Hydralazine HCl (Apresoline) 25 mg Q8HR GT 11/18/16 22:00 12/18/16 21:59 11/19/16 06:15 Levofloxacin 100 ml @ 100 mls/hr Q48H IVPB 11/18/16 21:00 11/25/16 20:59 11/18/16 21:18 Lorazepam (Ativan 2mg/ml 1ml) 2 mg EVERY 2 HOURS PRN IV For Anxiety 11/18/16 09:45 11/25/16 09:44 Methimazole (Tapazole) 7.5 mg DAILY GT 11/18/16 12:00 12/18/16 11:59 11/19/16 08:55 Morphine Sulfate (Morphine Sulfate) 4 mg EVERY 4 HOURS PRN IVP Severe Pain (Pain Scale 7-10) 11/18/16 09:45 11/25/16 09:44 Ondansetron HCl (Zofran) 4 mg Q6H PRN IVP Nausea & Vomiting 11/18/16 09:45 12/18/16 09:44 Pantoprazole (Protonix) 40 mg BID IV 11/18/16 17:00 12/18/16 16:59 11/19/16 08:56 Polyethylene Glycol (Miralax) 17 gm DAILYPRN PRN ORAL Constipation 11/18/16 09:45 12/18/16 09:44 Sodium Chloride (Sodium Chloride 1000ml bag) 1,000 ml @ 100 mls/hr Q10H IV 11/18/16 12:00 12/18/16 11:59 11/19/16 08:00 Tamsulosin HCl (Flomax) 0.4 mg BEDTIME GT 11/18/16 21:00 12/18/16 20:59 11/18/16 21:18 Vancomycin HCl/ Dextrose (Vancomycin/D5W) 275 ml @ 183.3 mls/ hr Q24H IVPB 11/18/16 13:00 11/23/16 12:59 11/18/16 12:53 TRACI HAILE Nov 19, 2016 10:57
[2016-11-19 12:00] VITALS: BP 138/71
[2016-11-19] MEDS: Vancomycin 1 GM in D5W 275 ML IVPB SCH (12:18)
--- NOTE | 2016-11-19 13:00 | Diagnostic Imaging Report ---
Indication: Pneumothorax. Followup Comparison: 11/18/16 A single view chest radiograph was obtained. Findings: There is little to no change with regard to the left pneumothorax which is most pronounced at the lung base. The pleural space is filling backup with fluid as predicted on expected. 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 Pulmonary edema is present within the lungs. There is also a moderate right pleural effusion. Heart is stable in size. Impression: No significant change in the size of the pneumothorax from the previous day. 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 Increasing left pleural effusion over the last 24 hours.
[2016-11-19 16:00] VITALS: BP 141/74
--- NOTE | 2016-11-19 16:50 | Wound Care Consultation ---
Wound Assessment Wound Assessment #1: Wound Present on Admission: Yes New Wound: No Status Change of Wound: No Wound Location Body Site Modif: mid Wound Location Body Site: sacral Wound Type: pressure ulcer Chilo Test: Does not Chilo Pressure Ulcer Stage: II - scattered Wound Thickness: Partial Thickness Wound Length: 0.5 Wound Width: 0.5 Wound Depth: utd Percent of Wound [place]/Red: 100 Wound Drainage Description: Serosanguineous Wound Drainage Amount: Scant Wound Drainage Odor: None/Absent Tissue Surrounding Wound: Erythemic Wound General Appearance: Reddened Wound Assessment #2: Wound Number: #2 Wound Present on Admission: Yes New Wound: No Status Change of Wound: No Wound Location Body Site Modif: left Wound Location Body Site: trochanter Wound Type: pressure ulcer Chilo Test: Does not Chilo Pressure Ulcer Stage: deep tissue injury Wound Thickness: Full Thickness Wound Length: 3.0 Wound Width: 2.0 Wound Depth: utd Percent of Wound Purple/Maroon: 100 Wound Drainage Amount: None Wound Drainage Odor: None/Absent Tissue Surrounding Wound: Erythemic Wound General Appearance: Reddened - purple Wound Comment #1 Sacral area scattered stage II pressure ulcers #2 Left trochanter DTI pressure ulcer Recommendation -Sacral stage II scattered pressure ulcers Cleanse with saline, pat dry, apply Triad cream, cover with bordered gauze daily and PRN soiled/dislodged -Local wound care per protocol for for DTI -Turn and reposition -Keep clean and dry -Optimize nutrition -Offload both heels -Heel protector on both heels -Low air loss mattress -Assess and f/u accordingly for any changes MERCEDEZ EDDY RN Nov 19, 2016 16:50
--- NOTE | 2016-11-19 17:45 | General Progress Note ---
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- Evidence of UTI Bilateral Pleural effusion Plan: Slow Hydrate- Anemia correia- Transfuse if needed Monitor renal parameters- Per consultants Subjective ROS Limited/Unobtainable: Yes Allergies: Coded Allergies: PIPERACILLIN (Verified Allergy, Unknown, 11/18/16) TAZOBACTAM (Verified Allergy, Unknown, 11/18/16) Objective Last 24 Hour Vital Signs Date Time Temp Pulse Resp B/P Pulse Ox O2 Delivery O2 Flow Rate FiO2 11/19/16 17:13 100 14 40 11/19/16 16:00 40 11/19/16 16:00 100 11/19/16 16:00 98.0 101 14 141/74 100 Mechanical Ventilator 40 11/19/16 15:18 99 14 40 11/19/16 13:57 142/71 11/19/16 12:34 101 14 40 11/19/16 12:00 97.6 100 14 138/71 100 Mechanical Ventilator 40 11/19/16 12:00 40 11/19/16 12:00 97 11/19/16 11:28 100 14 40 11/19/16 09:09 110 14 40 11/19/16 08:00 98.1 110 14 132/71 100 Mechanical Ventilator 40 11/19/16 08:00 109 11/19/16 08:00 40 11/19/16 07:17 107 14 40 11/19/16 06:15 138/69 11/19/16 05:11 102 14 40 11/19/16 04:00 40 11/19/16 04:00 97.7 94 15 138/69 100 Nasal Cannula 11/19/16 04:00 102 11/19/16 03:09 105 14 40 11/19/16 00:53 98 14 40 11/19/16 00:00 40 11/19/16 00:00 97.7 107 14 145/66 99 Nasal Cannula 11/19/16 00:00 104 11/18/16 23:19 102 14 40 11/18/16 22:33 133/76 11/18/16 21:10 105 14 40 11/18/16 20:00 97.9 109 16 133/76 99 Nasal Cannula 11/18/16 20:00 40 11/18/16 20:00 107 11/18/16 19:24 107 14 40 Intake and Output 11/18/16 11/19/16 19:00 07:00 Intake Total 906.6 ml 1570 ml Output Total 4350 ml 1100 ml Balance -3443.4 ml 470 ml Intake Oral 0 ml Free Water 90 ml IV Total 876.6 ml 1200 ml Tube Feeding 30 ml 280 ml Output Urine Total 1050 ml 1100 ml Other 3300 ml Laboratory Tests 11/18/16 18:00: Body Fluid Source Thoracentesis, Body Fluid Volume 24, Body Fluid Appearance Bloody, Body Fl[place] [address], Body Fluid Total Nucleated Cells 63, Body Fluid Polynuclear WBCs (%) 41, Body Fluid Mononuclear WBCs (%) 53, Body Fluid Mesothelial Cells (%) 6, Body Fluid Glucose [Pending], Body Fluid Total Protein [Pending], Body Fluid Albumin [Pending] 11/19/16 03:45: White Blood Count 11.9H, Red Blood Count 3.10L, Hemoglobin 8.0L, Hematocrit 24.9L, Mean Corpuscular Volume 80, Mean Corpuscular Hemoglobin 25.9L, Mean Corpuscular Hemoglobin Concent 32.2, Red Cell Distribution Width 16.5H, Platelet Count 641H, Mean Platelet Volume 7.1, Neutrophils (%) (Auto) 74.0, Lymphocytes (%) (Auto) 9.5L, Monocytes (%) (Auto) 13.6H, Eosinophils (%) (Auto) 1.3, Basophils (%) (Auto) 1.7, Sodium Level 129L, Potassium Level 3.2L, Chloride Level 92L, Carbon Dioxide Level 25, Anion Gap 12, Blood Urea Nitrogen 144H, Creatinine 1.6H, Estimat Glomerular Filtration Rate , Glucose Level 150H, Uric Acid 16.3H, Calcium Level 9.5, Phosphorus Level 4.7, Magnesium Level 2.8H, Iron Level 24L, Total Iron Binding Capacity 147L, Percent Iron Saturation 16, Unsaturated Iron Binding 123, Ferritin 1023H, Total Bilirubin 0.5, Gamma Glutamyl Transpeptidase 145H, Aspartate Amino Transf (AST/SGOT) 39, Alanine Aminotransferase (ALT/SGPT) 26, Alkaline Phosphatase 343H, Total Creatine Kinase 41, C-Reactive Protein, Quantitative 13.4H, Pro-B-Type Natriuretic Peptide 6624H, Total Protein 6.0L, Albumin 1.8L, Globulin 4.2, Albumin/Globulin Ratio 0.4L, Triglycerides Level 116, Cholesterol Level 101, LDL Cholesterol 47L , HDL Cholesterol 31, Cholesterol/HDL Ratio 3.3, Vitamin B12 Level > 2000H, Folate [Pending], Thyroid Stimulating Hormone (TSH) 0.013L, Free Thyroxine 1.88H , Total Triiodothyronine 1.72 Height (Feet): 5 Height (Inches): 8.00 Weight (Pounds): 187 General Appearance: no apparent distress Cardiovascular: tachycardia Respiratory/Chest: decreased breath sounds Abdomen: distended Edema: 2+ Arm (L), 2+ Arm (R), 2+ Leg (L), 2+ Leg (R), 2+ Pedal (L), 2+ Pedal ( R), 2+ Generalized SUNITA MITCHELL Nov 19, 2016 17:45
[2016-11-19 19:10] LABS: PROTEIN, BODY FLUID 3.6 g/dL (.)
[2016-11-19] MEDS: Tamsulosin 0.4mg cap GT SCH (20:29)
[2016-11-19 20:34] VITALS: BP 143/70
--- NOTE | 2016-11-19 21:03 | Infectious Diseases Prog Note ---
Assessment/Plan Assessment/Plan A: Possible ventilator-associated pneumonia Chest x-ray: interstitial edema and moderate bilateral pleural effusion. Bilateral pleural effusion, rule out empyema. Elevated alkaline phosphatase, rule out biliary disease/obstruction. Mild leukocytosis. Sepsis Afebrile. Encephalopathy Seizure disorder History of myocardial infarction Anemia Status vent and trach dependent respiratory failure Status post PEG Diabetes PLAN: cont on IV vancomycin, Levaquin, and Azactam d# 2 Monitor CBC Monitor BMP Monitor cultures (blood and sputum) Ultrasound of the abdomen Monitor liver function tests Subjective Constitutional: Denies: anorexia, chills, drenching sweats, fatigue, fever, no symptoms, other Allergies: Coded Allergies: PIPERACILLIN (Verified Allergy, Unknown, 11/18/16) TAZOBACTAM (Verified Allergy, Unknown, 11/18/16) Objective Vital Signs Last 24 Hour Vital Signs Date Time Temp Pulse Resp B/P Pulse Ox O2 Delivery O2 Flow Rate FiO2 11/19/16 20:34 98.0 101 14 143/70 100 Mechanical Ventilator 40 11/19/16 20:00 40 11/19/16 19:14 102 14 40 11/19/16 17:13 100 14 40 11/19/16 16:00 40 11/19/16 16:00 100 11/19/16 16:00 98.0 101 14 141/74 100 Mechanical Ventilator 40 11/19/16 15:18 99 14 40 11/19/16 13:57 142/71 11/19/16 12:34 101 14 40 11/19/16 12:00 97.6 100 14 138/71 100 Mechanical Ventilator 40 11/19/16 12:00 40 11/19/16 12:00 97 11/19/16 11:28 100 14 40 11/19/16 09:09 110 14 40 11/19/16 08:00 98.1 110 14 132/71 100 Mechanical Ventilator 40 11/19/16 08:00 109 11/19/16 08:00 40 11/19/16 07:17 107 14 40 11/19/16 06:15 138/69 11/19/16 05:11 102 14 40 11/19/16 04:00 40 11/19/16 04:00 97.7 94 15 138/69 100 Nasal Cannula 11/19/16 04:00 102 11/19/16 03:09 105 14 40 11/19/16 00:53 98 14 40 11/19/16 00:00 40 11/19/16 00:00 97.7 107 14 145/66 99 Nasal Cannula 11/19/16 00:00 104 11/18/16 23:19 102 14 40 11/18/16 22:33 133/76 11/18/16 21:10 105 14 40 Height (Feet): 5 Height (Inches): 8.00 Weight (Pounds): 187 HEENT: anicteric Respiratory/Chest: normal breath sounds Cardiovascular: regular rhythm Abdomen: no mass Skin: no lesions Neurologic/Psychiatric: oriented x 3 Microbiology Date/Time Source Procedure Growth Status 11/18/16 18:00 Pleural Fluid Gram Stain - Final Resulted 11/18/16 18:00 Pleural Fluid Body Fluid Culture - Preliminary NO GROWTH Resulted 11/18/16 12:00 Sputum Gram Stain - Final Resulted 11/18/16 12:00 Sputum Sputum Culture - Preliminary Resulted 11/18/16 08:00 Urine,Clean Catch Urine Culture - Preliminary NO GROWTH AFTER 24 HOURS Resulted Laboratory Tests Test 11/19/16 03:45 White Blood Count 11.9 K/UL (4.8-10.8) H Red Blood Count 3.10 M/UL (4.70-6.10) L Hemoglobin 8.0 G/DL (14.2-18.0) L Hematocrit 24.9 % (42.0-52.0) L Mean Corpuscular Volume 80 FL (80-99) Mean Corpuscular Hemoglobin 25.9 PG (27.0-31.0) L Mean Corpuscular Hemoglobin Concent 32.2 G/DL (32.0-36.0) Red Cell Distribution Width 16.5 % (11.6-14.8) H Platelet Count 641 K/UL (150-450) H Mean Platelet Volume 7.1 FL (6.5-10.1) Neutrophils (%) (Auto) 74.0 % (45.0-75.0) Lymphocytes (%) (Auto) 9.5 % (20.0-45.0) L Monocytes (%) (Auto) 13.6 % (1.0-10.0) H Eosinophils (%) (Auto) 1.3 % (0.0-3.0) Basophils (%) (Auto) 1.7 % (0.0-2.0) Sodium Level 129 mEQ/L (135-145) L Potassium Level 3.2 mEQ/L (3.4-4.9) L Chloride Level 92 mEQ/L (98-107) L Carbon Dioxide Level 25 mEQ/L (20-30) Anion Gap 12 (5-15) Blood Urea Nitrogen 144 mg/dL (7-23) H Creatinine 1.6 mg/dL (0.7-1.2) H Estimat Glomerular Filtration Rate mL/min (>60) Glucose Level 150 mg/dL (74-106) H Uric Acid 16.3 mg/dL (3.0-7.5) H Calcium Level 9.5 mg/dL (8.6-10.2) Phosphorus Level 4.7 mg/dL (2.5-4.8) Magnesium Level 2.8 mg/dL (1.7-2.5) H Iron Level 24 ug/dL (59-158) L Total Iron Binding Capacity 147 ug/dL (250-400) L Percent Iron Saturation 16 % (15-50) Unsaturated Iron Binding 123 ug/dL (112-346) Ferritin 1023 ng/mL (10-230) H Total Bilirubin 0.5 mg/dL (0.0-1.2) Gamma Glutamyl Transpeptidase 145 U/L (8-61) H Aspartate Amino Transf (AST/SGOT) 39 U/L (5-40) Alanine Aminotransferase (ALT/SGPT) 26 U/L (3-41) Alkaline Phosphatase 343 U/L (40-129) H Total Creatine Kinase 41 U/L (38-174) C-Reactive Protein, Quantitative 13.4 mg/dL (< 0.5) H Pro-B-Type Natriuretic Peptide 6624 pg/mL (0-450) H Total Protein 6.0 g/dL (6.6-8.7) L Albumin 1.8 g/dL (3.5-5.2) L Globulin 4.2 g/dL Albumin/Globulin Ratio 0.4 (1.0-2.7) L Triglycerides Level 116 mg/dL (< 150) Cholesterol Level 101 mg/dL (< 200) LDL Cholesterol 47 mg/dL (60-99) L HDL Cholesterol 31 mg/dL (> 60) Cholesterol/HDL Ratio 3.3 (3.3-4.4) Vitamin B12 Level > 2000 pg/mL (211-946) H Folate Pending Thyroid Stimulating Hormone (TSH) 0.013 uIU/mL (0.300-4.500) Free Thyroxine 1.88 ng/dL (0.86-1.85) H Total Triiodothyronine 1.72 ng/mL (0.80-2.00) Current Medications Medications (Trade) Dose Ordered Sig/Jose Luis Route PRN Reason Start Time Stop Time Status Last Admin Dose Admin Acetaminophen (Tylenol) 650 mg Q4H PRN ORAL FEVER 11/18/16 09:45 12/18/16 09:44 Albuterol/ Ipratropium 3 ml 3 ml EVERY 4 HOURS PRN HHN Shortness of Breath 11/18/16 09:45 11/23/16 09:44 Aztreonam 1 gm/ Sodium Chloride 55 ml @ 110 mls/hr EVERY 8 HOURS IVPB 11/18/16 14:00 11/25/16 13:59 11/19/16 13:57 Dextrose STAT PRN IV Hypoglycemia 11/18/16 09:45 12/18/16 09:44 Heparin Sodium (Porcine) (Heparin 5000 units/ml) 5,000 units EVERY 12 HOURS SUBQ 11/18/16 21:00 12/18/16 20:59 11/19/16 20:30 Hydralazine HCl (Apresoline) 25 mg Q8HR GT 11/18/16 22:00 12/18/16 21:59 11/19/16 13:57 Levofloxacin 100 ml @ 100 mls/hr Q48H IVPB 11/18/16 21:00 11/25/16 20:59 11/18/16 21:18 Lorazepam (Ativan 2mg/ml 1ml) 2 mg EVERY 2 HOURS PRN IV For Anxiety 11/18/16 09:45 11/25/16 09:44 Methimazole (Tapazole) 7.5 mg DAILY GT 11/18/16 12:00 12/18/16 11:59 11/19/16 08:55 Morphine Sulfate (Morphine Sulfate) 4 mg EVERY 4 HOURS PRN IVP Severe Pain (Pain Scale 7-10) 11/18/16 09:45 11/25/16 09:44 Ondansetron HCl (Zofran) 4 mg Q6H PRN IVP Nausea & Vomiting 11/18/16 09:45 12/18/16 09:44 Pantoprazole (Protonix) 40 mg BID IV 11/18/16 17:00 12/18/16 16:59 11/19/16 17:42 Polyethylene Glycol (Miralax) 17 gm DAILYPRN PRN ORAL Constipation 11/18/16 09:45 12/18/16 09:44 Sodium Chloride (Sodium Chloride 1000ml bag) 1,000 ml @ 100 mls/hr Q10H IV 11/18/16 12:00 12/18/16 11:59 11/19/16 17:42 Tamsulosin HCl (Flomax) 0.4 mg BEDTIME GT 11/18/16 21:00 12/18/16 20:59 11/19/16 20:29 Vancomycin HCl/ Dextrose (Vancomycin/D5W) 275 ml @ 183.3 mls/ hr Q24H IVPB 11/18/16 13:00 11/23/16 12:59 11/19/16 12:18 SHIV CARDOZA M.D. Nov 19, 2016 21:03
[2016-11-20 00:58] VITALS: BP 152/77
[2016-11-20 04:00] VITALS: BP 142/79
[2016-11-20 05:06] LABS: LYMPHOCYTES % (AUTO) 10.5 % (20.0-45.0); MEAN CORPUSCULAR HEMOGLOBIN 25.9 PG (27.0-31.0); MEAN CORPUSCULAR VOLUME 81 FL (80-99); MEAN PLATELET VOLUME 6.9 FL (6.5-10.1); MONOCYTES % (AUTO) 16.4 % (1.0-10.0); NEUTROPHILS % (AUTO) 70.1 % (45.0-75.0); PLATELET COUNT 650 K/UL (150-450); RED BLOOD COUNT 3.24 M/UL (4.70-6.10); RED CELL DISTRIBUTION WIDTH 17.5 % (11.6-14.8)
[2016-11-20 05:39] LABS: ALANINE AMINOTRANSFERASE 22 U/L (3-41); ALBUMIN/GLOBULIN RATIO 0.4 (1.0-2.7); ANION GAP 18 (5-15); ASPARTATE AMINO TRANSFERASE 33 U/L (5-40); CALCIUM 9.3 mg/dL (8.6-10.2); CARBON DIOXIDE 24 mEQ/L (20-30); CHLORIDE 95 mEQ/L (98-107); CREATININE 1.3 mg/dL (0.7-1.2); HEMOLYSIS 1; POTASSIUM 3.4 mEQ/L (3.4-4.9); SODIUM 137 mEQ/L (135-145); TOTAL PROTEIN 5.9 g/dL (6.6-8.7)
[2016-11-20] MEDS: Aztreonam Inj 1 GM in NS 55 ML IVPB SCH ×3 (05:47→21:59)
[2016-11-20] MEDS: HydrALAZINE 25mg tab GT SCH ×3 (05:48→21:58)
[2016-11-20 07:11] LABS: COMMENT,BODY FLUID PATHOLOGIST COMMENT
[2016-11-20 08:00] VITALS: BP 143/70
[2016-11-20] MEDS: Heparin 5000 units/ml inj SUBQ SCH ×2 (08:20→21:18)
[2016-11-20] MEDS: Pantoprazole Inj IV SCH (08:21)
[2016-11-20] MEDS: Methimazole 5mg tab GT SCH (08:21)
--- NOTE | 2016-11-20 10:32 | Pulmonology Progress Note ---
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, 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, consultants, 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 Subjective ROS Limited/Unobtainable: No Constitutional: Reports: no symptoms HEENT: Repors: no symptoms Allergies: Coded Allergies: PIPERACILLIN (Verified Allergy, Unknown, 11/18/16) TAZOBACTAM (Verified Allergy, Unknown, 11/18/16) Objective Last 24 Hour Vital Signs Date Time Temp Pulse Resp B/P Pulse Ox O2 Delivery O2 Flow Rate FiO2 11/20/16 09:15 102 14 40 11/20/16 08:00 98.1 106 14 143/70 100 Mechanical Ventilator 40 11/20/16 08:00 40 11/20/16 07:20 104 14 40 11/20/16 05:48 148/78 11/20/16 05:04 105 14 40 11/20/16 04:00 104 11/20/16 04:00 98.3 107 14 142/79 100 Mechanical Ventilator 40 11/20/16 04:00 40 11/20/16 03:10 101 14 40 11/20/16 00:58 97.9 113 18 152/77 100 Mechanical Ventilator 40 11/20/16 00:53 109 14 40 11/20/16 00:00 102 11/20/16 00:00 40 11/19/16 22:40 100 14 40 11/19/16 22:06 130/65 11/19/16 21:29 104 14 40 11/19/16 20:34 98.0 101 14 143/70 100 Mechanical Ventilator 40 11/19/16 20:00 102 11/19/16 20:00 40 11/19/16 19:14 102 14 40 11/19/16 17:13 100 14 40 11/19/16 16:00 40 11/19/16 16:00 100 11/19/16 16:00 98.0 101 14 141/74 100 Mechanical Ventilator 40 11/19/16 15:18 99 14 40 11/19/16 13:57 142/71 11/19/16 12:34 101 14 40 11/19/16 12:00 97.6 100 14 138/71 100 Mechanical Ventilator 40 11/19/16 12:00 40 11/19/16 12:00 97 11/19/16 11:28 100 14 40 Intake and Output 11/19/16 11/20/16 19:00 07:00 Intake Total 1965.0 ml 1570 ml Output Total 750 ml 1000 ml Balance 1215.0 ml 570 ml Free Water 160 ml IV Total 1385.0 ml 1100 ml Tube Feeding 360 ml 360 ml Other 60 ml 110 ml Output Urine Total 750 ml 1000 ml # Bowel Movements 1 2 General Appearance: cachetic HEENT: normocephalic, atraumatic Respiratory/Chest: chest wall non-tender, lungs clear Cardiovascular: normal peripheral pulses, normal rate Abdomen: normal bowel sounds, no organomegaly Skin: no rash 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 Complete 11/18/16 08:00 Urine,Clean Catch Urine Culture - Preliminary Resulted 11/18/16 09:05 Rectum VRE Culture - Final Enterococcus Faecium - Vre Complete Laboratory Tests 11/20/16 03:50: White Blood Count 10.0, Red Blood Count 3.24L, Hemoglobin 8.4L, Hematocrit 26.3L , Mean Corpuscular Volume 81, Mean Corpuscular Hemoglobin 25.9L, Mean Corpuscular Hemoglobin Concent 32.0, Red Cell Distribution Width 17.5H, Platelet Count 650H, Mean Platelet Volume 6.9, Neutrophils (%) (Auto) 70.1, Lymphocytes (%) (Auto) 10.5L, Monocytes (%) (Auto) 16.4H, Eosinophils (%) (Auto ) 2.0, Basophils (%) (Auto) 1.0, Sodium Level 137, Potassium Level 3.4, Chloride Level 95L, Carbon Dioxide Level 24, Anion Gap 18H, Blood Urea Nitrogen 120H, Creatinine 1.3H, Estimat Glomerular Filtration Rate , Glucose Level 130H, Calcium Level 9.3, Total Bilirubin 0.5, Aspartate Amino Transf (AST/SGOT) 33, Alanine Aminotransferase (ALT/SGPT) 22, Alkaline Phosphatase 319H, Pro-B-Type Natriuretic Peptide 7851H, Total Protein 5.9L, Albumin 1.9L, Globulin 4.0, Albumin/Globulin Ratio 0.4L Current Medications Medications (Trade) Dose Ordered Sig/Jose Luis Route PRN Reason Start Time Stop Time Status Last Admin Dose Admin Acetaminophen (Tylenol) 650 mg Q4H PRN ORAL FEVER 11/18/16 09:45 12/18/16 09:44 Albuterol/ Ipratropium 3 ml 3 ml EVERY 4 HOURS PRN HHN Shortness of Breath 11/18/16 09:45 11/23/16 09:44 Aztreonam 1 gm/ Sodium Chloride 55 ml @ 110 mls/hr EVERY 8 HOURS IVPB 11/18/16 14:00 11/25/16 13:59 11/20/16 05:47 Dextrose STAT PRN IV Hypoglycemia 11/18/16 09:45 12/18/16 09:44 Heparin Sodium (Porcine) (Heparin 5000 units/ml) 5,000 units EVERY 12 HOURS SUBQ 11/18/16 21:00 12/18/16 20:59 11/20/16 08:20 Hydralazine HCl (Apresoline) 25 mg Q8HR GT 11/18/16 22:00 12/18/16 21:59 11/20/16 05:48 Levofloxacin 100 ml @ 100 mls/hr Q48H IVPB 11/18/16 21:00 11/25/16 20:59 11/18/16 21:18 Lorazepam (Ativan 2mg/ml 1ml) 2 mg EVERY 2 HOURS PRN IV For Anxiety 11/18/16 09:45 11/25/16 09:44 Methimazole (Tapazole) 7.5 mg DAILY GT 11/18/16 12:00 12/18/16 11:59 11/20/16 08:21 Morphine Sulfate (Morphine Sulfate) 4 mg EVERY 4 HOURS PRN IVP Severe Pain (Pain Scale 7-10) 11/18/16 09:45 11/25/16 09:44 Ondansetron HCl (Zofran) 4 mg Q6H PRN IVP Nausea & Vomiting 11/18/16 09:45 12/18/16 09:44 Pantoprazole (Protonix) 40 mg BID IV 11/18/16 17:00 12/18/16 16:59 11/20/16 08:21 Polyethylene Glycol (Miralax) 17 gm DAILYPRN PRN ORAL Constipation 11/18/16 09:45 12/18/16 09:44 Sodium Chloride (Sodium Chloride 1000ml bag) 1,000 ml @ 100 mls/hr Q10H IV 11/18/16 12:00 12/18/16 11:59 11/20/16 03:41 Tamsulosin HCl (Flomax) 0.4 mg BEDTIME GT 11/18/16 21:00 12/18/16 20:59 11/19/16 20:29 Vancomycin HCl/ Dextrose (Vancomycin/D5W) 275 ml @ 183.3 mls/ hr Q24H IVPB 11/18/16 13:00 11/23/16 12:59 11/19/16 12:18 TRACI HAILE Nov 20, 2016 10:32
--- NOTE | 2016-11-20 11:34 | Diagnostic Imaging Report ---
Indication: DYSPNEA Technique: One view of the chest Comparison: 11/19/2016 Findings: Left pneumothorax is unchanged. There is evidence of atelectasis at the left lower lung. Some pleural fluid is also demonstrated on left. Large right pleural effusion is probably unchanged allowing for differences in rotation. Impression: Unchanged left ex vacuo pneumothorax, over one day Other stable findings as described
--- NOTE | 2016-11-20 11:42 | Infectious Diseases Prog Note ---
Assessment/Plan Assessment/Plan A: Possible ventilator-associated pneumonia Chest x-ray: interstitial edema and moderate bilateral pleural effusion. Bilateral pleural effusion, SP tap , no evid of empyema. Elevated alkaline phosphatase, rule out biliary disease/obstruction. Ultrasound of the abdomen : Cholelithiasis with some thickening of the wall of the gallbladder. Cholecystitis not excluded. Leukocytosis., SP Sepsis , SP Afebrile Encephalopathy Seizure disorder History of myocardial infarction Anemia Status vent and trach dependent respiratory failure Status post PEG Diabetes PLAN: cont on IV vancomycin, Levaquin, and Azactam d# 3 , may taper AB Rx soon Monitor CBC Monitor BMP Monitor cultures (blood and sputum, Ur , Pl effusion ) HIDA Monitor liver function tests Subjective Allergies: Coded Allergies: PIPERACILLIN (Verified Allergy, Unknown, 11/18/16) TAZOBACTAM (Verified Allergy, Unknown, 11/18/16) Subjective afebrile Objective Vital Signs Last 24 Hour Vital Signs Date Time Temp Pulse Resp B/P Pulse Ox O2 Delivery O2 Flow Rate FiO2 11/20/16 09:15 102 14 40 11/20/16 08:00 98.1 106 14 143/70 100 Mechanical Ventilator 40 11/20/16 08:00 40 11/20/16 07:20 104 14 40 11/20/16 05:48 148/78 11/20/16 05:04 105 14 40 11/20/16 04:00 104 11/20/16 04:00 98.3 107 14 142/79 100 Mechanical Ventilator 40 11/20/16 04:00 40 11/20/16 03:10 101 14 40 11/20/16 00:58 97.9 113 18 152/77 100 Mechanical Ventilator 40 11/20/16 00:53 109 14 40 11/20/16 00:00 102 11/20/16 00:00 40 11/19/16 22:40 100 14 40 11/19/16 22:06 130/65 11/19/16 21:29 104 14 40 11/19/16 20:34 98.0 101 14 143/70 100 Mechanical Ventilator 40 11/19/16 20:00 102 11/19/16 20:00 40 11/19/16 19:14 102 14 40 11/19/16 17:13 100 14 40 11/19/16 16:00 40 11/19/16 16:00 100 11/19/16 16:00 98.0 101 14 141/74 100 Mechanical Ventilator 40 11/19/16 15:18 99 14 40 11/19/16 13:57 142/71 11/19/16 12:34 101 14 40 11/19/16 12:00 97.6 100 14 138/71 100 Mechanical Ventilator 40 11/19/16 12:00 40 11/19/16 12:00 97 Height (Feet): 5 Height (Inches): 8.00 Weight (Pounds): 187 HEENT: atraumatic Respiratory/Chest: no accessory muscle use Cardiovascular: regular rhythm Abdomen: no organomegaly Microbiology Date/Time Source Procedure Growth Status 11/18/16 08:00 Blood Blood Culture - Preliminary NO GROWTH AFTER 24 HOURS Resulted 11/18/16 07:30 Blood Blood Culture - Preliminary NO GROWTH AFTER 24 HOURS Resulted 11/18/16 18:00 Pleural Fluid Gram Stain - Final Resulted 11/18/16 18:00 Pleural Fluid Body Fluid Culture - Preliminary NO GROWTH AFTER 48 HOURS Resulted 11/18/16 12:00 Sputum Gram Stain - Final Resulted 11/18/16 12:00 Sputum Culture - Preliminary Yeast Species Resulted 11/18/16 09:05 Nasal Nares MRSA Culture - Final NO METHICILLIN RESISTANT STAPH AUREUS... Complete 11/18/16 08:00 Urine,Clean Catch Urine Culture - Preliminary Resulted 11/18/16 09:05 Rectum VRE Culture - Final Enterococcus Faecium - Vre Complete Laboratory Tests Test 11/20/16 03:50 White Blood Count 10.0 K/UL (4.8-10.8) Red Blood Count 3.24 M/UL (4.70-6.10) L Hemoglobin 8.4 G/DL (14.2-18.0) L Hematocrit 26.3 % (42.0-52.0) L Mean Corpuscular Volume 81 FL (80-99) Mean Corpuscular Hemoglobin 25.9 PG (27.0-31.0) L Mean Corpuscular Hemoglobin Concent 32.0 G/DL (32.0-36.0) Red Cell Distribution Width 17.5 % (11.6-14.8) H Platelet Count 650 K/UL (150-450) H Mean Platelet Volume 6.9 FL (6.5-10.1) Neutrophils (%) (Auto) 70.1 % (45.0-75.0) Lymphocytes (%) (Auto) 10.5 % (20.0-45.0) L Monocytes (%) (Auto) 16.4 % (1.0-10.0) H Eosinophils (%) (Auto) 2.0 % (0.0-3.0) Basophils (%) (Auto) 1.0 % (0.0-2.0) Sodium Level 137 mEQ/L (135-145) Potassium Level 3.4 mEQ/L (3.4-4.9) Chloride Level 95 mEQ/L (98-107) L Carbon Dioxide Level 24 mEQ/L (20-30) Anion Gap 18 (5-15) H Blood Urea Nitrogen 120 mg/dL (7-23) H Creatinine 1.3 mg/dL (0.7-1.2) H Estimat Glomerular Filtration Rate mL/min (>60) Glucose Level 130 mg/dL (74-106) H Calcium Level 9.3 mg/dL (8.6-10.2) Total Bilirubin 0.5 mg/dL (0.0-1.2) Aspartate Amino Transf (AST/SGOT) 33 U/L (5-40) Alanine Aminotransferase (ALT/SGPT) 22 U/L (3-41) Alkaline Phosphatase 319 U/L (40-129) H Pro-B-Type Natriuretic Peptide 7851 pg/mL (0-450) H Total Protein 5.9 g/dL (6.6-8.7) L Albumin 1.9 g/dL (3.5-5.2) L Globulin 4.0 g/dL Albumin/Globulin Ratio 0.4 (1.0-2.7) L Current Medications Medications (Trade) Dose Ordered Sig/Jose Luis Route PRN Reason Start Time Stop Time Status Last Admin Dose Admin Acetaminophen (Tylenol) 650 mg Q4H PRN ORAL FEVER 11/18/16 09:45 12/18/16 09:44 Albuterol/ Ipratropium 3 ml 3 ml EVERY 4 HOURS PRN HHN Shortness of Breath 11/18/16 09:45 11/23/16 09:44 Aztreonam 1 gm/ Sodium Chloride 55 ml @ 110 mls/hr EVERY 8 HOURS IVPB 11/18/16 14:00 11/25/16 13:59 11/20/16 05:47 Dextrose STAT PRN IV Hypoglycemia 11/18/16 09:45 12/18/16 09:44 Heparin Sodium (Porcine) (Heparin 5000 units/ml) 5,000 units EVERY 12 HOURS SUBQ 11/18/16 21:00 12/18/16 20:59 11/20/16 08:20 Hydralazine HCl (Apresoline) 25 mg Q8HR GT 11/18/16 22:00 12/18/16 21:59 11/20/16 05:48 Levofloxacin 100 ml @ 100 mls/hr Q48H IVPB 11/18/16 21:00 11/25/16 20:59 11/18/16 21:18 Lorazepam (Ativan 2mg/ml 1ml) 2 mg EVERY 2 HOURS PRN IV For Anxiety 11/18/16 09:45 11/25/16 09:44 Methimazole (Tapazole) 7.5 mg DAILY GT 11/18/16 12:00 12/18/16 11:59 11/20/16 08:21 Morphine Sulfate (Morphine Sulfate) 4 mg EVERY 4 HOURS PRN IVP Severe Pain (Pain Scale 7-10) 11/18/16 09:45 11/25/16 09:44 Ondansetron HCl (Zofran) 4 mg Q6H PRN IVP Nausea & Vomiting 11/18/16 09:45 12/18/16 09:44 Pantoprazole (Protonix) 40 mg BID IV 11/18/16 17:00 12/18/16 16:59 11/20/16 08:21 Polyethylene Glycol (Miralax) 17 gm DAILYPRN PRN ORAL Constipation 11/18/16 09:45 12/18/16 09:44 Sodium Chloride (Sodium Chloride 1000ml bag) 1,000 ml @ 100 mls/hr Q10H IV 11/18/16 12:00 12/18/16 11:59 11/20/16 03:41 Tamsulosin HCl (Flomax) 0.4 mg BEDTIME GT 11/18/16 21:00 12/18/16 20:59 11/19/16 20:29 Vancomycin HCl/ Dextrose (Vancomycin/D5W) 275 ml @ 183.3 mls/ hr Q24H IVPB 11/18/16 13:00 11/23/16 12:59 11/19/16 12:18 SHIV CARDOZA M.D. Nov 20, 2016 11:42
[2016-11-20 12:00] VITALS: BP 137/79
--- NOTE | 2016-11-20 12:23 | General Progress Note ---
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- Evidence of UTI Bilateral Pleural effusion Plan: Slow Hydrate- Anemia correia- Transfuse if needed Monitor renal parameters- Per consultants pulmonary support- Subjective ROS Limited/Unobtainable: Yes Allergies: Coded Allergies: PIPERACILLIN (Verified Allergy, Unknown, 11/18/16) TAZOBACTAM (Verified Allergy, Unknown, 11/18/16) Objective Last 24 Hour Vital Signs Date Time Temp Pulse Resp B/P Pulse Ox O2 Delivery O2 Flow Rate FiO2 11/20/16 11:26 107 14 40 11/20/16 09:15 102 14 40 11/20/16 08:00 98.1 106 14 143/70 100 Mechanical Ventilator 40 11/20/16 08:00 40 11/20/16 07:20 104 14 40 11/20/16 05:48 148/78 11/20/16 05:04 105 14 40 11/20/16 04:00 104 11/20/16 04:00 98.3 107 14 142/79 100 Mechanical Ventilator 40 11/20/16 04:00 40 11/20/16 03:10 101 14 40 11/20/16 00:58 97.9 113 18 152/77 100 Mechanical Ventilator 40 11/20/16 00:53 109 14 40 11/20/16 00:00 102 11/20/16 00:00 40 11/19/16 22:40 100 14 40 11/19/16 22:06 130/65 11/19/16 21:29 104 14 40 11/19/16 20:34 98.0 101 14 143/70 100 Mechanical Ventilator 40 11/19/16 20:00 102 11/19/16 20:00 40 11/19/16 19:14 102 14 40 11/19/16 17:13 100 14 40 11/19/16 16:00 40 11/19/16 16:00 100 11/19/16 16:00 98.0 101 14 141/74 100 Mechanical Ventilator 40 11/19/16 15:18 99 14 40 11/19/16 13:57 142/71 11/19/16 12:34 101 14 40 Intake and Output 11/19/16 11/20/16 19:00 07:00 Intake Total 1965.0 ml 1670 ml Output Total 750 ml 1000 ml Balance 1215.0 ml 670 ml Free Water 160 ml IV Total 1385.0 ml 1200 ml Tube Feeding 360 ml 360 ml Other 60 ml 110 ml Output Urine Total 750 ml 1000 ml # Bowel Movements 1 2 Laboratory Tests 11/20/16 03:50: White Blood Count 10.0, Red Blood Count 3.24L, Hemoglobin 8.4L, Hematocrit 26.3L , Mean Corpuscular Volume 81, Mean Corpuscular Hemoglobin 25.9L, Mean Corpuscular Hemoglobin Concent 32.0, Red Cell Distribution Width 17.5H, Platelet Count 650H, Mean Platelet Volume 6.9, Neutrophils (%) (Auto) 70.1, Lymphocytes (%) (Auto) 10.5L, Monocytes (%) (Auto) 16.4H, Eosinophils (%) (Auto ) 2.0, Basophils (%) (Auto) 1.0, Sodium Level 137, Potassium Level 3.4, Chloride Level 95L, Carbon Dioxide Level 24, Anion Gap 18H, Blood Urea Nitrogen 120H, Creatinine 1.3H, Estimat Glomerular Filtration Rate , Glucose Level 130H, Calcium Level 9.3, Total Bilirubin 0.5, Aspartate Amino Transf (AST/SGOT) 33, Alanine Aminotransferase (ALT/SGPT) 22, Alkaline Phosphatase 319H, Pro-B-Type Natriuretic Peptide 7851H, Total Protein 5.9L, Albumin 1.9L, Globulin 4.0, Albumin/Globulin Ratio 0.4L Height (Feet): 5 Height (Inches): 8.00 Weight (Pounds): 187 General Appearance: no apparent distress Cardiovascular: tachycardia Respiratory/Chest: decreased breath sounds Abdomen: soft Edema: 2+ Arm (L), 2+ Arm (R), 2+ Leg (L), 2+ Leg (R), 2+ Pedal (L), 2+ Pedal ( R), 2+ Generalized Objective other PE not changed SUNITA MITCHELL Nov 20, 2016 12:23
[2016-11-20] MEDS: Vancomycin 1 GM in D5W 275 ML IVPB SCH (13:28)
[2016-11-20 16:00] VITALS: BP 145/78
[2016-11-20 20:00] VITALS: BP 120/67
[2016-11-20] MEDS: Tamsulosin 0.4mg cap GT SCH (21:17)
[2016-11-21] VITALS: BP 117/74
[2016-11-21 03:39] LABS: BASOPHILS % (AUTO) 1.1 % (0.0-2.0); EOSINOPHILS % (AUTO) 2.5 % (0.0-3.0); LYMPHOCYTES % (AUTO) 11.1 % (20.0-45.0); MEAN CORPUSCULAR HEMOGLOBIN 26.2 PG (27.0-31.0); MEAN CORPUSCULAR HGB CONC 32.1 G/DL (32.0-36.0); MEAN CORPUSCULAR VOLUME 82 FL (80-99); MEAN PLATELET VOLUME 6.3 FL (6.5-10.1); MONOCYTES % (AUTO) 18.1 % (1.0-10.0); NEUTROPHILS % (AUTO) 67.3 % (45.0-75.0); PLATELET COUNT 635 K/UL (150-450); RED BLOOD COUNT 3.13 M/UL (4.70-6.10); RED CELL DISTRIBUTION WIDTH 17.4 % (11.6-14.8); WHITE BLOOD COUNT 9.6 K/UL (4.8-10.8)
[2016-11-21 03:54] LABS: ALANINE AMINOTRANSFERASE 21 U/L (3-41); ALBUMIN/GLOBULIN RATIO 0.4 (1.0-2.7); ANION GAP 16 (5-15); ASPARTATE AMINO TRANSFERASE 29 U/L (5-40); CALCIUM 9.3 mg/dL (8.6-10.2); CARBON DIOXIDE 24 mEQ/L (20-30); CHLORIDE 99 mEQ/L (98-107); CREATININE 1.1 mg/dL (0.7-1.2); HEMOLYSIS 1; POTASSIUM 3.4 mEQ/L (3.4-4.9); SODIUM 139 mEQ/L (135-145); TOTAL PROTEIN 5.7 g/dL (6.6-8.7)
[2016-11-21 04:00] VITALS: BP 129/69
[2016-11-21] MEDS: Aztreonam Inj 1 GM in NS 55 ML IVPB SCH ×3 (05:22→21:32)
[2016-11-21] MEDS: HydrALAZINE 25mg tab GT SCH ×3 (05:22→21:32)
[2016-11-21 08:00] VITALS: BP 136/79
--- NOTE | 2016-11-21 09:44 | General Progress Note ---
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- Evidence of UTI Bilateral Pleural effusion HyperThyroidism Plan: add Inderal GT Slow Hydrate- Anemia correia- Transfuse if needed Monitor renal parameters- Per consultants pulmonary support- Subjective ROS Limited/Unobtainable: Yes Allergies: Coded Allergies: PIPERACILLIN (Verified Allergy, Unknown, 11/18/16) TAZOBACTAM (Verified Allergy, Unknown, 11/18/16) Objective Last 24 Hour Vital Signs Date Time Temp Pulse Resp B/P Pulse Ox O2 Delivery O2 Flow Rate FiO2 11/21/16 08:00 98.6 115 14 136/79 99 Mechanical Ventilator 30 11/21/16 06:51 114 14 30 11/21/16 05:22 128/76 11/21/16 04:54 111 14 30 11/21/16 04:00 113 11/21/16 04:00 40 11/21/16 04:00 97.6 113 13 129/69 99 Mechanical Ventilator 30 11/21/16 02:46 110 14 30 11/21/16 00:55 113 14 30 11/21/16 00:00 97.9 119 15 117/74 99 Mechanical Ventilator 30 11/21/16 00:00 40 11/20/16 22:55 116 14 30 11/20/16 21:58 120/67 11/20/16 20:40 113 14 30 11/20/16 20:00 114 11/20/16 20:00 97.9 110 15 120/67 99 Mechanical Ventilator 11/20/16 20:00 40 11/20/16 19:32 114 14 30 11/20/16 17:34 113 14 30 11/20/16 16:00 98.1 105 15 145/78 99 Mechanical Ventilator 30 11/20/16 16:00 40 11/20/16 16:00 109 11/20/16 15:26 109 14 30 11/20/16 15:11 148/70 11/20/16 13:05 103 14 40 11/20/16 12:00 40 11/20/16 12:00 103 11/20/16 12:00 98.0 108 18 137/79 100 Mechanical Ventilator 40 11/20/16 11:26 107 14 40 Intake and Output 11/20/16 11/21/16 19:00 07:00 Intake Total 1136.6 ml 1170 ml Output Total 750 ml 700 ml Balance 386.6 ml 470 ml Free Water 100 ml IV Total 776.6 ml 650 ml Tube Feeding 360 ml 360 ml Other 60 ml Output Urine Total 750 ml 700 ml # Bowel Movements 2 Laboratory Tests 11/21/16 02:50: White Blood Count 9.6, Red Blood Count 3.13L, Hemoglobin 8.2L, Hematocrit 25.5L , Mean Corpuscular Volume 82, Mean Corpuscular Hemoglobin 26.2L, Mean Corpuscular Hemoglobin Concent 32.1, Red Cell Distribution Width 17.4H, Platelet Count 635H, Mean Platelet Volume 6.3L, Neutrophils (%) (Auto) 67.3, Lymphocytes (%) (Auto) 11.1L, Monocytes (%) (Auto) 18.1H, Eosinophils (%) (Auto ) 2.5, Basophils (%) (Auto) 1.1, Sodium Level 139, Potassium Level 3.4, Chloride Level 99, Carbon Dioxide Level 24, Anion Gap 16H, Blood Urea Nitrogen 105H, Creatinine 1.1, Estimat Glomerular Filtration Rate , Glucose Level 137H, Calcium Level 9.3, Total Bilirubin 0.4, Aspartate Amino Transf (AST/SGOT) 29, Alanine Aminotransferase (ALT/SGPT) 21, Alkaline Phosphatase 290H, Pro-B-Type Natriuretic Peptide 8646H, Total Protein 5.7L, Albumin 1.8L, Globulin 3.9, Albumin/Globulin Ratio 0.4L Height (Feet): 5 Height (Inches): 8.00 Weight (Pounds): 187 General Appearance: no apparent distress Cardiovascular: tachycardia Respiratory/Chest: decreased breath sounds Objective other PE not changed SUNITA MITCHELL Nov 21, 2016 09:44
[2016-11-21] MEDS ORDERED: Tubing IV Secondary IV ONE (09:50)
[2016-11-21] MEDS ORDERED: NS 275ml ONE (09:50)
[2016-11-21] MEDS: Methimazole 5mg tab GT SCH (10:00)
--- NOTE | 2016-11-21 10:54 | Pulmonology Progress Note ---
Assessment/Plan Problems: (1) Acute and chronic respiratory failure (2) Pneumothorax (3) ATN (acute tubular necrosis) (4) Bilateral pleural effusion (5) Anemia (6) Feeding by G-tube Respiratory: monitor respiratory rate, CXR Cardiac: continue to monitor HR/BP Renal: F/U I&O, other - agnieszka function improving Infectious Disease: check cultures Gastrointestinal: continue feedings/current rate Endocrine: monitor blood sugar, continue sliding scale insulin Hematologic: transfuse if hgb<8.5 Neurologic: PRN Ativan, keep patient comfortable Prophylaxis: Protonix Notes Reviewed: label tacker, cardio, 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, consultants, case technician Subjective ROS Limited/Unobtainable: No Allergies: Coded Allergies: PIPERACILLIN (Verified Allergy, Unknown, 11/18/16) TAZOBACTAM (Verified Allergy, Unknown, 11/18/16) Objective Last 24 Hour Vital Signs Date Time Temp Pulse Resp B/P Pulse Ox O2 Delivery O2 Flow Rate FiO2 11/21/16 09:00 30 11/21/16 09:00 113 11/21/16 08:00 98.6 115 14 136/79 99 Mechanical Ventilator 11/21/16 06:51 114 14 30 11/21/16 05:22 128/76 11/21/16 04:54 111 14 30 11/21/16 04:00 113 11/21/16 04:00 40 11/21/16 04:00 97.6 113 13 129/69 99 Mechanical Ventilator 11/21/16 02:46 110 14 30 11/21/16 00:55 113 14 11/21/16 00:00 97.9 119 15 117/74 99 Mechanical Ventilator 11/21/16 00:00 40 11/20/16 22:55 116 14 30 11/20/16 21:58 120/67 11/20/16 20:40 113 14 30 11/20/16 20:00 114 11/20/16 20:00 97.9 110 15 120/67 99 Mechanical Ventilator 11/20/16 20:00 40 11/20/16 19:32 114 14 30 11/20/16 17:34 113 14 30 11/20/16 16:00 98.1 105 15 145/78 99 Mechanical Ventilator 11/20/16 16:00 40 11/20/16 16:00 109 11/20/16 15:26 109 14 30 11/20/16 15:11 148/70 11/20/16 13:05 103 14 40 11/20/16 12:00 40 11/20/16 12:00 103 11/20/16 12:00 98.0 108 18 137/79 100 Mechanical Ventilator 40 11/20/16 11:26 107 14 40 Intake and Output 11/20/16 11/21/16 19:00 07:00 Intake Total 1136.6 ml 1170 ml Output Total 750 ml 700 ml Balance 386.6 ml 470 ml Free Water 100 ml IV Total 776.6 ml 650 ml Tube Feeding 360 ml 360 ml Other 60 ml Output Urine Total 750 ml 700 ml # Bowel Movements 2 General Appearance: cachetic HEENT: normocephalic, atraumatic Respiratory/Chest: chest wall non-tender, lungs clear Cardiovascular: normal peripheral pulses, normal rate Abdomen: soft, non tender Genitourinary: normal external genitalia Extremities: no cyanosis Skin: no rash, no lesions Microbiology Date/Time Source Procedure Growth Status 11/18/16 18:00 Pleural Fluid Gram Stain - Final Resulted 11/18/16 18:00 Pleural Fluid Body Fluid Culture - Preliminary NO GROWTH AFTER 48 HOURS Resulted 11/18/16 12:00 Sputum Gram Stain - Final Complete 11/18/16 12:00 Sputum Culture - Final Ute Tropicalis Complete Laboratory Tests 11/21/16 02:50: White Blood Count 9.6, Red Blood Count 3.13L, Hemoglobin 8.2L, Hematocrit 25.5L , Mean Corpuscular Volume 82, Mean Corpuscular Hemoglobin 26.2L, Mean Corpuscular Hemoglobin Concent 32.1, Red Cell Distribution Width 17.4H, Platelet Count 635H, Mean Platelet Volume 6.3L, Neutrophils (%) (Auto) 67.3, Lymphocytes (%) (Auto) 11.1L, Monocytes (%) (Auto) 18.1H, Eosinophils (%) (Auto ) 2.5, Basophils (%) (Auto) 1.1, Sodium Level 139, Potassium Level 3.4, Chloride Level 99, Carbon Dioxide Level 24, Anion Gap 16H, Blood Urea Nitrogen 105H, Creatinine 1.1, Estimat Glomerular Filtration Rate , Glucose Level 137H, Calcium Level 9.3, Total Bilirubin 0.4, Aspartate Amino Transf (AST/SGOT) 29, Alanine Aminotransferase (ALT/SGPT) 21, Alkaline Phosphatase 290H, Pro-B-Type Natriuretic Peptide 8646H, Total Protein 5.7L, Albumin 1.8L, Globulin 3.9, Albumin/Globulin Ratio 0.4L Current Medications Medications (Trade) Dose Ordered Sig/Jose Luis Route PRN Reason Start Time Stop Time Status Last Admin Dose Admin Acetaminophen (Tylenol) 650 mg Q4H PRN ORAL FEVER 11/18/16 09:45 12/18/16 09:44 Albuterol/ Ipratropium 3 ml 3 ml EVERY 4 HOURS PRN HHN Shortness of Breath 11/18/16 09:45 11/23/16 09:44 Aztreonam 1 gm/ Sodium Chloride 55 ml @ 110 mls/hr EVERY 8 HOURS IVPB 11/18/16 14:00 11/25/16 13:59 11/21/16 05:22 Dextrose STAT PRN IV Hypoglycemia 11/18/16 09:45 12/18/16 09:44 Heparin Sodium (Porcine) (Heparin 5000 units/ml) 5,000 units EVERY 12 HOURS SUBQ 11/18/16 21:00 12/18/16 20:59 11/20/16 21:18 Hydralazine HCl (Apresoline) 25 mg Q8HR GT 11/18/16 22:00 12/18/16 21:59 11/21/16 05:22 Lansoprazole (Prevacid) 30 mg Q12HR GT 11/20/16 21:00 12/20/16 20:59 11/20/16 21:17 Levofloxacin (Levaquin) 100 ml @ 100 mls/hr Q48H IVPB 11/18/16 21:00 11/25/16 20:59 11/20/16 21:19 Lorazepam (Ativan 2mg/ml 1ml) 2 mg EVERY 2 HOURS PRN IV For Anxiety 11/18/16 09:45 11/25/16 09:44 Methimazole (Tapazole) 7.5 mg DAILY GT 11/18/16 12:00 12/18/16 11:59 11/20/16 08:21 Morphine Sulfate (Morphine Sulfate) 4 mg EVERY 4 HOURS PRN IVP Severe Pain (Pain Scale 7-10) 11/18/16 09:45 11/25/16 09:44 Ondansetron HCl (Zofran) 4 mg Q6H PRN IVP Nausea & Vomiting 11/18/16 09:45 12/18/16 09:44 Polyethylene Glycol (Miralax) 17 gm DAILYPRN PRN ORAL Constipation 11/18/16 09:45 12/18/16 09:44 Propranolol HCl (Inderal) 10 mg Q8HR GT 11/21/16 09:45 12/21/16 09:44 Tamsulosin HCl (Flomax) 0.4 mg BEDTIME GT 11/18/16 21:00 12/18/16 20:59 11/20/16 21:17 Vancomycin HCl/ Dextrose (Vancomycin/D5W) 275 ml @ 183.3 mls/ hr Q24H IVPB 11/18/16 13:00 11/23/16 12:59 11/20/16 13:28 TRACI HAILE Nov 21, 2016 10:54
--- NOTE | 2016-11-21 11:02 | Diagnostic Imaging Report ---
Indication: DYSPNEA Technique: One view of the chest Comparison: 11/20/2016 Findings: Large left pneumothorax remains stable. Stable or slightly increased pleural fluid on the left. Completely atelectatic lung seen inferiorly. There is persistent and probably unchanged pleural fluid on the right. Consolidation or edema of the right lung appears increased somewhat. Tracheostomy remains Impression: Stable left chest ex vacuo post thoracentesis pneumothorax Stable large right pneumothorax. Suspect increasing consolidation or edema of the right lung over one day
[2016-11-21] MEDS: Heparin 5000 units/ml inj SUBQ SCH ×2 (11:45→21:33)
[2016-11-21] MEDS: Propranolol 10mg tab GT SCH ×3 (11:46→21:32)
[2016-11-21 12:00] VITALS: BP 136/80
[2016-11-21 16:00] VITALS: BP 141/74
[2016-11-21 20:00] VITALS: BP 138/88
[2016-11-21] MEDS: Tamsulosin 0.4mg cap GT SCH (21:33)
--- NOTE | 2016-11-21 22:02 | Infectious Diseases Prog Note ---
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 Bilateral pleural effusion, SP tap , no evid of empyema, Cx NGTD Elevated alkaline phosphatase, rule out biliary disease/obstruction - HIDA pending Ultrasound of the abdomen : Cholelithiasis with some thickening of the wall of the gallbladder. Cholecystitis not excluded. Leukocytosis SP Sepsis SP Afebrile Acute RLE popliteal vein DVT Chronic VDRF SP trach, PEG Chronic encephalopathy Seizure disorder History of myocardial infarction Anemia Diabetes Zosyn allergy Full Code PLAN: cont on IV vancomycin, Levaquin, and Azactam d# 4 / 5-7 Monitor CBC Monitor BMP Monitor cultures (blood and sputum, Ur , Pl effusion ) HIDA Monitor liver function tests Subjective Allergies: Coded Allergies: PIPERACILLIN (Verified Allergy, Unknown, 11/18/16) TAZOBACTAM (Verified Allergy, Unknown, 11/18/16) Subjective remains afebrile on vent Objective Vital Signs Last 24 Hour Vital Signs Date Time Temp Pulse Resp B/P Pulse Ox O2 Delivery O2 Flow Rate FiO2 11/21/16 21:32 97 138/88 11/21/16 21:32 138/88 11/21/16 21:18 97 14 30 11/21/16 20:00 30 11/21/16 20:00 97.6 96 14 138/88 100 Mechanical Ventilator 30 11/21/16 18:54 94 14 30 11/21/16 17:26 93 13 30 11/21/16 16:00 94 11/21/16 16:00 99.0 98 14 141/74 100 Mechanical Ventilator 30 11/21/16 16:00 30 11/21/16 15:22 96 14 30 11/21/16 14:00 89 136/80 11/21/16 14:00 136/80 11/21/16 13:05 89 14 30 11/21/16 12:00 96 11/21/16 12:00 30 11/21/16 12:00 98.4 112 14 136/80 99 Mechanical Ventilator 30 11/21/16 11:46 113 136/79 11/21/16 11:27 113 13 30 11/21/16 09:00 30 11/21/16 09:00 113 11/21/16 08:00 98.6 115 14 136/79 99 Mechanical Ventilator 30 11/21/16 06:51 114 14 30 11/21/16 05:22 128/76 11/21/16 04:54 111 14 30 11/21/16 04:00 113 11/21/16 04:00 40 11/21/16 04:00 97.6 113 13 129/69 99 Mechanical Ventilator 11/21/16 02:46 110 14 30 11/21/16 00:55 113 14 30 11/21/16 00:00 97.9 119 15 117/74 99 Mechanical Ventilator 30 11/21/16 00:00 40 11/20/16 22:55 116 14 30 Height (Feet): 5 Height (Inches): 8.00 Weight (Pounds): 187 General Appearance: no acute distress HEENT: status post trach Respiratory/Chest: decreased breath sounds Cardiovascular: normal rate, regular rhythm Abdomen: normal bowel sounds, soft, non tender, non distended Laboratory Tests Test 11/21/16 02:50 11/21/16 12:30 White Blood Count 9.6 K/UL (4.8-10.8) Red Blood Count 3.13 M/UL (4.70-6.10) L Hemoglobin 8.2 G/DL (14.2-18.0) L Hematocrit 25.5 % (42.0-52.0) L Mean Corpuscular Volume 82 FL (80-99) Mean Corpuscular Hemoglobin 26.2 PG (27.0-31.0) L Mean Corpuscular Hemoglobin Concent 32.1 G/DL (32.0-36.0) Red Cell Distribution Width 17.4 % (11.6-14.8) H Platelet Count 635 K/UL (150-450) H Mean Platelet Volume 6.3 FL (6.5-10.1) L Neutrophils (%) (Auto) 67.3 % (45.0-75.0) Lymphocytes (%) (Auto) 11.1 % (20.0-45.0) L Monocytes (%) (Auto) 18.1 % (1.0-10.0) H Eosinophils (%) (Auto) 2.5 % (0.0-3.0) Basophils (%) (Auto) 1.1 % (0.0-2.0) Sodium Level 139 mEQ/L (135-145) Potassium Level 3.4 mEQ/L (3.4-4.9) Chloride Level 99 mEQ/L (98-107) Carbon Dioxide Level 24 mEQ/L (20-30) Anion Gap 16 (5-15) H Blood Urea Nitrogen 105 mg/dL (7-23) H Creatinine 1.1 mg/dL (0.7-1.2) Estimat Glomerular Filtration Rate mL/min (>60) Glucose Level 137 mg/dL (74-106) H Calcium Level 9.3 mg/dL (8.6-10.2) Total Bilirubin 0.4 mg/dL (0.0-1.2) Aspartate Amino Transf (AST/SGOT) 29 U/L (5-40) Alanine Aminotransferase (ALT/SGPT) 21 U/L (3-41) Alkaline Phosphatase 290 U/L (40-129) H Pro-B-Type Natriuretic Peptide 8646 pg/mL (0-450) H Total Protein 5.7 g/dL (6.6-8.7) L Albumin 1.8 g/dL (3.5-5.2) L Globulin 3.9 g/dL Albumin/Globulin Ratio 0.4 (1.0-2.7) L Vancomycin Level Trough 24.6 ug/mL (5.0-12.0) H Current Medications Medications (Trade) Dose Ordered Sig/Jose Luis Route PRN Reason Start Time Stop Time Status Last Admin Dose Admin Acetaminophen (Tylenol) 650 mg Q4H PRN ORAL FEVER 11/18/16 09:45 12/18/16 09:44 Albuterol/ Ipratropium (DuoNeb 0.5-3(2.5)mg/3ml) 3 ml EVERY 4 HOURS PRN HHN Shortness of Breath 11/18/16 09:45 11/23/16 09:44 Aztreonam/Sodium Chloride (Azactam/Sodium Chloride) 55 ml @ 110 mls/hr EVERY 8 HOURS IVPB 11/18/16 14:00 11/25/16 13:59 11/21/16 21:32 Dextrose STAT PRN IV Hypoglycemia 11/18/16 09:45 12/18/16 09:44 Heparin Sodium (Porcine) (Heparin 5000 units/ml) 5,000 units EVERY 12 HOURS SUBQ 11/18/16 21:00 12/18/16 20:59 11/21/16 21:33 Hydralazine HCl (Apresoline) 25 mg Q8HR GT 11/18/16 22:00 12/18/16 21:59 11/21/16 21:32 Lansoprazole (Prevacid) 30 mg Q12HR GT 11/20/16 21:00 12/20/16 20:59 11/21/16 21:32 Levofloxacin (Levaquin) 500 mg Q48H GT 11/22/16 21:00 11/25/16 20:59 Lorazepam (Ativan 2mg/ml 1ml) 2 mg EVERY 2 HOURS PRN IV For Anxiety 11/18/16 09:45 11/25/16 09:44 Methimazole (Tapazole) 7.5 mg DAILY GT 11/18/16 12:00 12/18/16 11:59 11/21/16 10:00 Morphine Sulfate (Morphine Sulfate) 4 mg EVERY 4 HOURS PRN IVP Severe Pain (Pain Scale 7-10) 11/18/16 09:45 11/25/16 09:44 Ondansetron HCl (Zofran) 4 mg Q6H PRN IVP Nausea & Vomiting 11/18/16 09:45 12/18/16 09:44 Polyethylene Glycol (Miralax) 17 gm DAILYPRN PRN ORAL Constipation 11/18/16 09:45 12/18/16 09:44 Propranolol HCl 10 mg 10 mg Q8HR GT 11/21/16 09:45 12/21/16 09:44 11/21/16 21:32 Tamsulosin HCl (Flomax) 0.4 mg BEDTIME GT 11/18/16 21:00 12/18/16 20:59 11/21/16 21:33 Vancomycin HCl/ Dextrose (Vancomycin/D5W) 275 ml @ 183 mls/hr Q24H IVPB 11/22/16 08:00 11/24/16 07:59 LORA CASTRO 9, 2017 22:02
[2016-11-22] VITALS: BP 132/72
[2016-11-22 04:00] VITALS: BP 130/75
[2016-11-22] MEDS: HydrALAZINE 25mg tab GT SCH ×3 (05:55→22:16)
[2016-11-22] MEDS: Aztreonam Inj 1 GM in NS 55 ML IVPB SCH ×3 (05:55→22:17)
[2016-11-22] MEDS: Propranolol 10mg tab GT SCH ×3 (05:55→22:16)
[2016-11-22 06:01] LABS: EOSINOPHILS % (AUTO) 3.3 % (0.0-3.0); LYMPHOCYTES % (AUTO) 12.2 % (20.0-45.0); MEAN CORPUSCULAR HEMOGLOBIN 25.9 PG (27.0-31.0); MEAN CORPUSCULAR HGB CONC 31.4 G/DL (32.0-36.0); MEAN CORPUSCULAR VOLUME 82 FL (80-99); MEAN PLATELET VOLUME 6.4 FL (6.5-10.1); MONOCYTES % (AUTO) 16.5 % (1.0-10.0); NEUTROPHILS % (AUTO) 67.1 % (45.0-75.0); PLATELET COUNT 628 K/UL (150-450); RED BLOOD COUNT 3.28 M/UL (4.70-6.10); RED CELL DISTRIBUTION WIDTH 17.2 % (11.6-14.8); WHITE BLOOD COUNT 8.7 K/UL (4.8-10.8)
[2016-11-22 06:09] LABS: ALANINE AMINOTRANSFERASE 23 U/L (3-41); ALBUMIN/GLOBULIN RATIO 0.5 (1.0-2.7); ANION GAP 16 (5-15); ASPARTATE AMINO TRANSFERASE 36 U/L (5-40); CALCIUM 9.5 mg/dL (8.6-10.2); CARBON DIOXIDE 25 mEQ/L (20-30); CHLORIDE 102 mEQ/L (98-107); CREATININE 1.1 mg/dL (0.7-1.2); HEMOLYSIS 0; POTASSIUM 3.4 mEQ/L (3.4-4.9); SODIUM 143 mEQ/L (135-145)
[2016-11-22] MEDS: Vancomycin 750 MG in D5W 275 ML IVPB SCH (07:52)
[2016-11-22 08:00] VITALS: BP 146/79
[2016-11-22] MEDS: Methimazole 5mg tab GT SCH (09:05)
[2016-11-22] MEDS: Heparin 5000 units/ml inj SUBQ SCH ×2 (09:06→20:34)
--- NOTE | 2016-11-22 09:18 | Diagnostic Imaging Report ---
Indication: Pneumothorax. Followup. Comparison: 11/21/16 A single view chest radiograph was obtained. Findings: Persistent left-sided ex-vacuo pneumothorax are demonstrated with increasing left pleural fluid. Left lower lobe atelectasis and or entrapment again noted. There is stable right pleural effusion as well. Tracheostomy noted. Impression: No significant change lead the last day
[2016-11-22 12:00] VITALS: BP 137/71
--- NOTE | 2016-11-22 12:10 | General Progress Note ---
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- Evidence of UTI Bilateral Pleural effusion HyperThyroidism Plan: Inderal via GT Slow Hydrate- Anemia correia- Transfuse if needed Monitor renal parameters- Per consultants pulmonary support- Subjective ROS Limited/Unobtainable: Yes Allergies: Coded Allergies: PIPERACILLIN (Verified Allergy, Unknown, 11/18/16) TAZOBACTAM (Verified Allergy, Unknown, 11/18/16) Objective Last 24 Hour Vital Signs Date Time Temp Pulse Resp B/P Pulse Ox O2 Delivery O2 Flow Rate FiO2 11/22/16 11:10 85 14 30 11/22/16 09:15 86 14 30 11/22/16 08:00 30 11/22/16 08:00 98.1 100 15 146/79 100 Mechanical Ventilator 11/22/16 08:00 85 11/22/16 06:58 84 14 30 11/22/16 05:55 94 130/75 11/22/16 05:55 130/75 11/22/16 04:59 94 14 30 11/22/16 04:00 98.0 98 15 130/75 100 Mechanical Ventilator 11/22/16 04:00 30 11/22/16 03:46 93 11/22/16 03:17 95 14 30 11/22/16 01:22 91 14 30 11/22/16 00:00 30 11/22/16 00:00 97.5 93 14 132/72 100 Mechanical Ventilator 11/21/16 23:37 87 11/21/16 23:34 85 14 30 11/21/16 21:32 97 138/88 11/21/16 21:32 138/88 11/21/16 21:18 97 14 30 11/21/16 20:00 30 11/21/16 20:00 97.6 96 14 138/88 100 Mechanical Ventilator 11/21/16 19:46 93 11/21/16 18:54 94 14 30 11/21/16 17:26 93 13 30 11/21/16 16:00 94 11/21/16 16:00 99.0 98 14 141/74 100 Mechanical Ventilator 11/21/16 16:00 30 11/21/16 15:22 96 14 30 11/21/16 14:00 89 136/80 11/21/16 14:00 136/80 11/21/16 13:05 89 14 30 Intake and Output 11/21/16 11/22/16 19:00 07:00 Intake Total 130 ml 410 ml Output Total 700 ml 800 ml Balance -570 ml -390 ml Free Water 100 ml 150 ml IV Total 110 ml Tube Feeding 30 ml 150 ml Output Urine Total 700 ml 800 ml # Bowel Movements 2 2 Laboratory Tests 11/21/16 12:30: Vancomycin Level Trough 24.6H 11/22/16 05:16: White Blood Count 8.7, Red Blood Count 3.28L, Hemoglobin 8.5L, Hematocrit 27.0L , Mean Corpuscular Volume 82, Mean Corpuscular Hemoglobin 25.9L, Mean Corpuscular Hemoglobin Concent 31.4L, Red Cell Distribution Width 17.2H, Platelet Count 628H, Mean Platelet Volume 6.4L, Neutrophils (%) (Auto) 67.1, Lymphocytes (%) (Auto) 12.2L, Monocytes (%) (Auto) 16.5H, Eosinophils (%) (Auto ) 3.3H, Basophils (%) (Auto) 1.0, Sodium Level 143, Potassium Level 3.4, Chloride Level 102, Carbon Dioxide Level 25, Anion Gap 16H, Blood Urea Nitrogen 97H, Creatinine 1.1, Estimat Glomerular Filtration Rate , Glucose Level 112H, Calcium Level 9.5, Total Bilirubin 0.5, Aspartate Amino Transf (AST/SGOT) 36, Alanine Aminotransferase (ALT/SGPT) 23, Alkaline Phosphatase 301H, Pro-B-Type Natriuretic Peptide 9120H, Total Protein 6.0L, Albumin 2.0L, Globulin 4.0, Albumin/Globulin Ratio 0.5L Height (Feet): 5 Height (Inches): 8.00 Weight (Pounds): 188 Objective other PE not changed SUNITA MITCHELL Nov 22, 2016 12:10
--- NOTE | 2016-11-22 14:07 | Cardiology Progress Note ---
Assessment/Plan Assessment/Plan chronci respiratory failure sinus tachy anemia azotemia pleural effusion heart failure with preserved ef hyperthyroidism ptx agree with inderal in ltigh of hyperthyroidism is lready on metamizole echo noted getting ivf already check stool ob in light of anemia and azotemia repeat ekg echo did not show any pericardial efffuiosn but pelural effusion [id number] Objective Last 24 Hour Vital Signs Date Time Temp Pulse Resp B/P Pulse Ox O2 Delivery O2 Flow Rate FiO2 11/22/16 13:08 83 14 30 11/22/16 12:00 97.5 92 14 137/71 100 Mechanical Ventilator 30 11/22/16 11:10 85 14 30 11/22/16 09:15 86 14 30 11/22/16 08:00 30 11/22/16 08:00 98.1 100 15 146/79 100 Mechanical Ventilator 30 11/22/16 08:00 85 11/22/16 06:58 84 14 30 11/22/16 05:55 94 130/75 11/22/16 05:55 130/75 11/22/16 04:59 94 14 30 11/22/16 04:00 98.0 98 15 130/75 100 Mechanical Ventilator 30 11/22/16 04:00 30 11/22/16 03:46 93 11/22/16 03:17 95 14 30 11/22/16 01:22 91 14 30 11/22/16 00:00 30 11/22/16 00:00 97.5 93 14 132/72 100 Mechanical Ventilator 30 11/21/16 23:37 87 11/21/16 23:34 85 14 30 11/21/16 21:32 97 138/88 11/21/16 21:32 138/88 11/21/16 21:18 97 14 30 11/21/16 20:00 30 11/21/16 20:00 97.6 96 14 138/88 100 Mechanical Ventilator 11/21/16 19:46 93 11/21/16 18:54 94 14 30 11/21/16 17:26 93 13 30 11/21/16 16:00 94 11/21/16 16:00 99.0 98 14 141/74 100 Mechanical Ventilator 30 11/21/16 16:00 30 11/21/16 15:22 96 14 30 Intake and Output 11/21/16 11/22/16 19:00 07:00 Intake Total 130 ml 410 ml Output Total 700 ml 800 ml Balance -570 ml -390 ml Free Water 100 ml 150 ml IV Total 110 ml Tube Feeding 30 ml 150 ml Output Urine Total 700 ml 800 ml # Bowel Movements 2 2 Laboratory Tests Test 11/22/16 05:16 White Blood Count 8.7 K/UL (4.8-10.8) Red Blood Count 3.28 M/UL (4.70-6.10) L Hemoglobin 8.5 G/DL (14.2-18.0) L Hematocrit 27.0 % (42.0-52.0) L Mean Corpuscular Volume 82 FL (80-99) Mean Corpuscular Hemoglobin 25.9 PG (27.0-31.0) L Mean Corpuscular Hemoglobin Concent 31.4 G/DL (32.0-36.0) L Red Cell Distribution Width 17.2 % (11.6-14.8) H Platelet Count 628 K/UL (150-450) H Mean Platelet Volume 6.4 FL (6.5-10.1) L Neutrophils (%) (Auto) 67.1 % (45.0-75.0) Lymphocytes (%) (Auto) 12.2 % (20.0-45.0) L Monocytes (%) (Auto) 16.5 % (1.0-10.0) H Eosinophils (%) (Auto) 3.3 % (0.0-3.0) H Basophils (%) (Auto) 1.0 % (0.0-2.0) Sodium Level 143 mEQ/L (135-145) Potassium Level 3.4 mEQ/L (3.4-4.9) Chloride Level 102 mEQ/L (98-107) Carbon Dioxide Level 25 mEQ/L (20-30) Anion Gap 16 (5-15) H Blood Urea Nitrogen 97 mg/dL (7-23) H Creatinine 1.1 mg/dL (0.7-1.2) Estimat Glomerular Filtration Rate mL/min (>60) Glucose Level 112 mg/dL (74-106) H Calcium Level 9.5 mg/dL (8.6-10.2) Total Bilirubin 0.5 mg/dL (0.0-1.2) Aspartate Amino Transf (AST/SGOT) 36 U/L (5-40) Alanine Aminotransferase (ALT/SGPT) 23 U/L (3-41) Alkaline Phosphatase 301 U/L (40-129) H Pro-B-Type Natriuretic Peptide 9120 pg/mL (0-450) H Total Protein 6.0 g/dL (6.6-8.7) L Albumin 2.0 g/dL (3.5-5.2) L Globulin 4.0 g/dL Albumin/Globulin Ratio 0.5 (1.0-2.7) L JULIÁN ARANGO Nov 22, 2016 14:07
[2016-11-22 16:00] VITALS: BP 131/83
--- NOTE | 2016-11-22 16:34 | Infectious Diseases Prog Note ---
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 Cholecystitis not excluded. Leukocytosis SP Sepsis SP Afebrile Acute RLE popliteal vein DVT Chronic VDRF SP trach, PEG Chronic encephalopathy Seizure disorder History of myocardial infarction Anemia Diabetes Zosyn allergy Full Code PLAN: cont on IV vancomycin, Levaquin, and Azactam d# -. October DC in AM Monitor CBC Monitor BMP Monitor cultures (blood and sputum, Ur , Pl effusion ) HIDA Monitor liver function tests vent support, trach care, aspiration precautions Subjective Allergies: Coded Allergies: PIPERACILLIN (Verified Allergy, Unknown, 11/18/16) TAZOBACTAM (Verified Allergy, Unknown, 11/18/16) Subjective remains afebrile on vent Objective Vital Signs Last 24 Hour Vital Signs Date Time Temp Pulse Resp B/P Pulse Ox O2 Delivery O2 Flow Rate FiO2 11/22/16 14:50 76 14 30 11/22/16 14:15 137/71 11/22/16 14:14 83 137/71 11/22/16 13:08 83 14 30 11/22/16 12:00 30 11/22/16 12:00 97.5 92 14 137/71 100 Mechanical Ventilator 30 11/22/16 12:00 90 11/22/16 11:10 85 14 30 11/22/16 09:15 86 14 30 11/22/16 08:00 30 11/22/16 08:00 98.1 100 15 146/79 100 Mechanical Ventilator 30 11/22/16 08:00 85 11/22/16 06:58 84 14 30 11/22/16 05:55 94 130/75 11/22/16 05:55 130/75 11/22/16 04:59 94 14 30 11/22/16 04:00 98.0 98 15 130/75 100 Mechanical Ventilator 30 11/22/16 04:00 30 11/22/16 03:46 93 11/22/16 03:17 95 14 30 11/22/16 01:22 91 14 30 11/22/16 00:00 30 11/22/16 00:00 97.5 93 14 132/72 100 Mechanical Ventilator 11/21/16 23:37 87 11/21/16 23:34 85 14 30 11/21/16 21:32 97 138/88 11/21/16 21:32 138/88 11/21/16 21:18 97 14 30 11/21/16 20:00 30 11/21/16 20:00 97.6 96 14 138/88 100 Mechanical Ventilator 11/21/16 19:46 93 11/21/16 18:54 94 14 30 11/21/16 17:26 93 13 30 Height (Feet): 5 Height (Inches): 8.00 Weight (Pounds): 188 General Appearance: no acute distress HEENT: status post trach Respiratory/Chest: decreased breath sounds Cardiovascular: normal rate, regular rhythm Abdomen: normal bowel sounds, soft, non tender, non distended Laboratory Tests Test 11/22/16 05:16 White Blood Count 8.7 K/UL (4.8-10.8) Red Blood Count 3.28 M/UL (4.70-6.10) L Hemoglobin 8.5 G/DL (14.2-18.0) L Hematocrit 27.0 % (42.0-52.0) L Mean Corpuscular Volume 82 FL (80-99) Mean Corpuscular Hemoglobin 25.9 PG (27.0-31.0) L Mean Corpuscular Hemoglobin Concent 31.4 G/DL (32.0-36.0) L Red Cell Distribution Width 17.2 % (11.6-14.8) H Platelet Count 628 K/UL (150-450) H Mean Platelet Volume 6.4 FL (6.5-10.1) L Neutrophils (%) (Auto) 67.1 % (45.0-75.0) Lymphocytes (%) (Auto) 12.2 % (20.0-45.0) L Monocytes (%) (Auto) 16.5 % (1.0-10.0) H Eosinophils (%) (Auto) 3.3 % (0.0-3.0) H Basophils (%) (Auto) 1.0 % (0.0-2.0) Sodium Level 143 mEQ/L (135-145) Potassium Level 3.4 mEQ/L (3.4-4.9) Chloride Level 102 mEQ/L (98-107) Carbon Dioxide Level 25 mEQ/L (20-30) Anion Gap 16 (5-15) H Blood Urea Nitrogen 97 mg/dL (7-23) H Creatinine 1.1 mg/dL (0.7-1.2) Estimat Glomerular Filtration Rate mL/min (>60) Glucose Level 112 mg/dL (74-106) H Calcium Level 9.5 mg/dL (8.6-10.2) Total Bilirubin 0.5 mg/dL (0.0-1.2) Aspartate Amino Transf (AST/SGOT) 36 U/L (5-40) Alanine Aminotransferase (ALT/SGPT) 23 U/L (3-41) Alkaline Phosphatase 301 U/L (40-129) H Pro-B-Type Natriuretic Peptide 9120 pg/mL (0-450) H Total Protein 6.0 g/dL (6.6-8.7) L Albumin 2.0 g/dL (3.5-5.2) L Globulin 4.0 g/dL Albumin/Globulin Ratio 0.5 (1.0-2.7) L Current Medications Medications (Trade) Dose Ordered Sig/Jose Luis Route PRN Reason Start Time Stop Time Status Last Admin Dose Admin Acetaminophen (Tylenol) 650 mg Q4H PRN ORAL FEVER 11/18/16 09:45 12/18/16 09:44 Albuterol/ Ipratropium (DuoNeb 0.5-3(2.5)mg/3ml) 3 ml EVERY 4 HOURS PRN HHN Shortness of Breath 11/18/16 09:45 11/23/16 09:44 Aztreonam/Sodium Chloride (Azactam/Sodium Chloride) 55 ml @ 110 mls/hr EVERY 8 HOURS IVPB 11/18/16 14:00 11/25/16 13:59 11/22/16 14:15 Dextrose STAT PRN IV Hypoglycemia 11/18/16 09:45 12/18/16 09:44 Heparin Sodium (Porcine) (Heparin 5000 units/ml) 5,000 units EVERY 12 HOURS SUBQ 11/18/16 21:00 12/18/16 20:59 11/22/16 09:06 Hydralazine HCl (Apresoline) 25 mg Q8HR GT 11/18/16 22:00 12/18/16 21:59 11/22/16 14:15 Lansoprazole (Prevacid) 30 mg Q12HR GT 11/20/16 21:00 12/20/16 20:59 11/22/16 09:05 Levofloxacin (Levaquin) 500 mg Q48H GT 11/22/16 21:00 11/25/16 20:59 Lorazepam (Ativan 2mg/ml 1ml) 2 mg EVERY 2 HOURS PRN IV For Anxiety 11/18/16 09:45 11/25/16 09:44 Methimazole (Tapazole) 7.5 mg DAILY GT 11/18/16 12:00 12/18/16 11:59 11/22/16 09:05 Morphine Sulfate (Morphine Sulfate) 4 mg EVERY 4 HOURS PRN IVP Severe Pain (Pain Scale 7-10) 11/18/16 09:45 11/25/16 09:44 Ondansetron HCl (Zofran) 4 mg Q6H PRN IVP Nausea & Vomiting 11/18/16 09:45 12/18/16 09:44 Polyethylene Glycol (Miralax) 17 gm DAILYPRN PRN ORAL Constipation 11/18/16 09:45 12/18/16 09:44 Propranolol HCl 10 mg 10 mg Q8HR GT 11/21/16 09:45 12/21/16 09:44 11/22/16 14:14 Tamsulosin HCl (Flomax) 0.4 mg BEDTIME GT 11/18/16 21:00 12/18/16 20:59 11/21/16 21:33 Vancomycin HCl/ Dextrose (Vancomycin/D5W) 275 ml @ 183 mls/hr Q24H IVPB 11/22/16 08:00 11/24/16 07:59 11/22/16 07:52 LORA CASTRO 10, 2017 16:34
[2016-11-22 20:00] VITALS: BP 118/81
[2016-11-22] MEDS: Tamsulosin 0.4mg cap GT SCH (20:33)
[2016-11-22] MEDS ORDERED: Levofloxacin 500mg tab GT SCH (21:00)
--- NOTE | 2016-11-22 22:39 | Pulmonology Progress Note ---
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5 83 15 131/83 100 Mechanical Ventilator 30 11/22/16 14:50 76 14 30 11/22/16 14:15 137/71 11/22/16 14:14 83 137/71 11/22/16 13:08 83 14 30 11/22/16 12:00 30 11/22/16 12:00 97.5 92 14 137/71 100 Mechanical Ventilator 30 11/22/16 12:00 90 11/22/16 11:10 85 14 30 11/22/16 09:15 86 14 30 11/22/16 08:00 30 11/22/16 08:00 98.1 100 15 146/79 100 Mechanical Ventilator 30 11/22/16 08:00 85 11/22/16 06:58 84 14 30 11/22/16 05:55 94 130/75 11/22/16 05:55 130/75 11/22/16 04:59 94 14 30 11/22/16 04:00 98.0 98 15 130/75 100 Mechanical Ventilator 30 11/22/16 04:00 30 11/22/16 03:46 93 11/22/16 03:17 95 14 30 11/22/16 01:22 91 14 30 11/22/16 00:00 30 11/22/16 00:00 97.5 93 14 132/72 100 Mechanical Ventilator 30 11/21/16 23:37 87 11/21/16 23:34 85 14 30 Intake and Output 11/21/16 11/22/16 19:00 07:00 Intake Total 130 ml 410 ml Output Total 700 ml 800 ml Balance -570 ml -390 ml Free Water 100 ml 150 ml IV Total 110 ml Tube Feeding 30 ml 150 ml Output Urine Total 700 ml 800 ml # Bowel Movements 2 2 Objective General Appearance: cachetic HEENT: normocephalic, atraumatic Respiratory/Chest: chest wall non-tender, lungs clear Cardiovascular: normal peripheral pulses, normal rate Abdomen: soft, non tender Genitourinary: normal external genitalia Extremities: no cyanosis Skin: no rash, no lesions Laboratory Tests 11/22/16 05:16: White Blood Count 8.7, Red Blood Count 3.28L, Hemoglobin 8.5L, Hematocrit 27.0L , Mean Corpuscular Volume 82, Mean Corpuscular Hemoglobin 25.9L, Mean Corpuscular Hemoglobin Concent 31.4L, Red Cell Distribution Width 17.2H, Platelet Count 628H, Mean Platelet Volume 6.4L, Neutrophils (%) (Auto) 67.1, Lymphocytes (%) (Auto) 12.2L, Monocytes (%) (Auto) 16.5H, Eosinophils (%) (Auto ) 3.3H, Basophils (%) (Auto) 1.0, Sodium Level 143, Potassium Level 3.4, Chloride Level 102, Carbon Dioxide Level 25, Anion Gap 16H, Blood Urea Nitrogen 97H, Creatinine 1.1, Estimat Glomerular Filtration Rate , Glucose Level 112H, Calcium Level 9.5, Total Bilirubin 0.5, Aspartate Amino Transf (AST/SGOT) 36, Alanine Aminotransferase (ALT/SGPT) 23, Alkaline Phosphatase 301H, Pro-B-Type Natriuretic Peptide 9120H, Total Protein 6.0L, Albumin 2.0L, Globulin 4.0, Albumin/Globulin Ratio 0.5L Current Medications Medications (Trade) Dose Ordered Sig/Jose Luis Route PRN Reason Start Time Stop Time Status Last Admin Dose Admin Acetaminophen (Tylenol) 650 mg Q4H PRN ORAL FEVER 11/18/16 09:45 12/18/16 09:44 Albuterol/ Ipratropium (DuoNeb 0.5-3(2.5)mg/3ml) 3 ml EVERY 4 HOURS PRN HHN Shortness of Breath 11/18/16 09:45 11/23/16 09:44 Aztreonam/Sodium Chloride (Azactam/Sodium Chloride) 55 ml @ 110 mls/hr EVERY 8 HOURS IVPB 11/18/16 14:00 11/25/16 13:59 11/22/16 22:17 Dextrose STAT PRN IV Hypoglycemia 11/18/16 09:45 12/18/16 09:44 Heparin Sodium (Porcine) (Heparin 5000 units/ml) 5,000 units EVERY 12 HOURS SUBQ 11/18/16 21:00 12/18/16 20:59 11/22/16 20:34 Hydralazine HCl (Apresoline) 25 mg Q8HR GT 11/18/16 22:00 12/18/16 21:59 11/22/16 22:16 Lansoprazole (Prevacid) 30 mg Q12HR GT 11/20/16 21:00 12/20/16 20:59 11/22/16 20:33 Levofloxacin (Levaquin) 500 mg Q48H GT 11/22/16 21:00 11/25/16 20:59 11/22/16 20:33 Lorazepam (Ativan 2mg/ml 1ml) 2 mg EVERY 2 HOURS PRN IV For Anxiety 11/18/16 09:45 11/25/16 09:44 Methimazole (Tapazole) 7.5 mg DAILY GT 11/18/16 12:00 12/18/16 11:59 11/22/16 09:05 Morphine Sulfate (Morphine Sulfate) 4 mg EVERY 4 HOURS PRN IVP Severe Pain (Pain Scale 7-10) 11/18/16 09:45 11/25/16 09:44 Ondansetron HCl (Zofran) 4 mg Q6H PRN IVP Nausea & Vomiting 11/18/16 09:45 12/18/16 09:44 Polyethylene Glycol (Miralax) 17 gm DAILYPRN PRN ORAL Constipation 11/18/16 09:45 12/18/16 09:44 Propranolol HCl 10 mg 10 mg Q8HR GT 11/21/16 09:45 12/21/16 09:44 11/22/16 22:16 Tamsulosin HCl (Flomax) 0.4 mg BEDTIME GT 11/18/16 21:00 12/18/16 20:59 11/22/16 20:33 Vancomycin HCl/ Dextrose (Vancomycin/D5W) 275 ml @ 183 mls/hr Q24H IVPB 11/22/16 08:00 11/24/16 07:59 11/22/16 07:52 TRACI HAILE Nov 22, 2016 22:39
[2016-11-23] VITALS: BP 139/70
--- NOTE | 2016-11-23 02:00 | Consultation ---
DATE OF CONSULTATION: 11/22/2016 CARDIOLOGY CONSULTATION CONSULTING PHYSICIAN: Antonio Howard M.D. REFERRING PHYSICIAN: Otto Wise M.D. REASON FOR REFERRAL: Heart failure. HISTORY OF PRESENT ILLNESS: This is an elderly gentleman who has had anoxic encephalopathy, he is on mechanical ventilator, not communicative, not responsive. Information is obtained from review of the patient's chart discussion with the patient's family members. Apparently, he is a resident of convalescent facility. Recently, he was noted to have some fevers. intravenous antibiotics and was treated, however, developed some renal insufficiency and was transferred to [facility]. He is not able to provide any meaningful history whatsoever. He had some abnormal laboratory data here including pleural effusions and apparently he has had some thoracentesis since he has been in the hospital with three liters removed. He is tachycardic and therefore this consultation requested. PAST MEDICAL HISTORY: Positive for history of recent hospitalization and discharge from another facility. Discharge date of 10/24/2016 with ventilator-associated pneumonia, acute on chronic hypoxic respiratory failure, acute diastolic heart failure with exacerbation, hyponatremia, elevated troponin levels and ruled out for myocardial infarction, abnormal liver tests, anemia, malnutrition, hypertension, hypothyroidism, history of CVA, anoxic encephalopathy, bedbound, mechanical ventilator, tracheostomy, G-tube dependent, history of myocardial infarction a year ago, but no treatment, started intervention according to the family members, and diabetes mellitus with aspiration as well. The patient apparently had a preserved left ventricular systolic function previously at the outside facility and discharged from the facility and was prescribed 20 mg of G-tube. He also has had hyponatremia deficit and anemia as well. ALLERGIES: Reportedly not allergic to any medications as far as I can tell. He is originally from [place], and he has had a prior myocardial infarction back in [place] as well. The details of that is not known. PHYSICAL EXAMINATION: GENERAL: Shows to be elderly gentleman, on a mechanical ventilator. HEENT: Eyes are open, not communicating, not responsive in any kind. NECK: Supple. LUNGS: There is bilateral breath sounds and rhonchi noted. CARDIAC: Regular rhythm. Tachycardic. No heaves, thrills, gallops, or rubs are noted. ABDOMEN: Soft and distended. No hepatosplenomegaly. EXTREMITIES: There is no edema. NEUROLOGIC: He is not communicative, not responsive in any kind. LABORATORY AND DIAGNOSTIC DATA: White count 8.7, down from 11.9 with a hemoglobin of 8.5, but the same on prior occasions, and platelet count is 628,000. His sodium 142, potassium 3.4, chloride 104, bicarbonate 25, BUN of 97, down from 120, and creatinine of 1.1, down from 1.3 on occasion. ProBNP is increased at 75, now at . Alkaline phosphatase is 301. His TSH was 0.13 and his free T4 was 1.88, which is considered elevated. His urinalysis, 5 to 10 WBCs. Coags, INR 1.0 and PTT of 31. Thoracentesis showed albumin of 1.6 and glucose of 127 and total protein of 3.6. His chest x-ray most recently today has been interpreted as showing left-sided ex vacuo pneumothorax, increasing left-sided pleural effusion, left lower lobe atelectasis or entrapment stabilized, pleural effusion, tracheostomy being noted. His telemetry data shows sinus rhythm with a heart rate of 100 or so, premature ventricular complexes noted, no atrial fibrillation is documented on any of the rhythm strips available in his chart. A run of wide complex tachycardia of only about two to three seconds in duration a few days ago, no other significant abnormalities on the available rhythm strips documented. The patient's electrocardiogram from 11/18/2016 indicates sinus tachycardia at a rate of 106, right bundle-branch conduction defect, may be some inferior infarct of age undetermined, low-voltage QRS complexes. An echocardiogram has been performed and that has shown normal left ventricular systolic function, ejection fraction of 55%, large pleural effusion at that time, dilated IVC suggesting increased RA pressure, mild diastolic relaxation abnormalities, and no significant other abnormalities noted. ASSESSMENT: 1. Chronic respiratory failure. 2. Sinus tachycardia, multifactorial, likely combination of inflammation. 3. Anemia. 4. Azotemia. 5. Pleural effusion. 6. Heart failure with preserved ejection fraction. 7. Hyperthyroidism. 8. Pneumothorax. Dr. Wise, this patient was seen in cardiac consultation. Agree with hyperthyroidism and the patient is already being treated with methimazole already. Echocardiogram is noted, there is no pericardial effusion, just pleural effusion. He has already had thoracentesis developing pneumothorax postoperatively. He is getting already intravenous fluids in light of the fact that he is azotemic. We would recommend checking stool for occult blood to rule out other causes of azotemia and anemia. EKG will be repeated. I will follow the patient along with you. Antonio Howard M.D. DR: ADAM JOB#: [id number] CC:
[2016-11-23 04:00] VITALS: BP 131/68
[2016-11-23] MEDS: HydrALAZINE 25mg tab GT SCH ×3 (05:47→17:37)
[2016-11-23] MEDS: Propranolol 10mg tab GT SCH ×3 (05:47→21:34)
[2016-11-23] MEDS: Aztreonam Inj 1 GM in NS 55 ML IVPB SCH (05:48)
[2016-11-23 06:38] LABS: BASOPHILS % (AUTO) 0.6 % (0.0-2.0); EOSINOPHILS % (AUTO) 2.8 % (0.0-3.0); LYMPHOCYTES % (AUTO) 11.1 % (20.0-45.0); MEAN CORPUSCULAR HEMOGLOBIN 25.7 PG (27.0-31.0); MEAN CORPUSCULAR HGB CONC 31.1 G/DL (32.0-36.0); MEAN CORPUSCULAR VOLUME 82 FL (80-99); MEAN PLATELET VOLUME 6.1 FL (6.5-10.1); MONOCYTES % (AUTO) 16.5 % (1.0-10.0); NEUTROPHILS % (AUTO) 68.9 % (45.0-75.0); PLATELET COUNT 664 K/UL (150-450); RED BLOOD COUNT 3.42 M/UL (4.70-6.10); RED CELL DISTRIBUTION WIDTH 17.5 % (11.6-14.8); WHITE BLOOD COUNT 9.7 K/UL (4.8-10.8)
[2016-11-23 07:32] LABS: ALANINE AMINOTRANSFERASE 27 U/L (3-41); ALBUMIN/GLOBULIN RATIO 0.5 (1.0-2.7); ANION GAP 16 (5-15); ASPARTATE AMINO TRANSFERASE 37 U/L (5-40); CALCIUM 9.6 mg/dL (8.6-10.2); CARBON DIOXIDE 26 mEQ/L (20-30); CHLORIDE 101 mEQ/L (98-107); HEMOLYSIS 2; POTASSIUM 3.4 mEQ/L (3.4-4.9); SODIUM 143 mEQ/L (135-145); TOTAL PROTEIN 5.9 g/dL (6.6-8.7)
[2016-11-23 08:00] VITALS: BP 130/62
[2016-11-23] MEDS: Vancomycin 750 MG in D5W 275 ML IVPB SCH (08:09)
[2016-11-23] MEDS: Methimazole 5mg tab GT SCH (08:09)
[2016-11-23] MEDS: Heparin 5000 units/ml inj SUBQ SCH ×2 (08:11→21:32)
--- NOTE | 2016-11-23 08:14 | Infectious Diseases Prog Note ---
Assessment/Plan Assessment/Plan A; Pneumonia s/p Rx Pleural effusion DVT VDRF DM Anemia Encephalopathy P: Discontinue antibiotics Subjective ROS Limited/Unobtainable: Yes Allergies: Coded Allergies: PIPERACILLIN (Verified Allergy, Unknown, 11/18/16) TAZOBACTAM (Verified Allergy, Unknown, 11/18/16) Objective Vital Signs Last 24 Hour Vital Signs Date Time Temp Pulse Resp B/P Pulse Ox O2 Delivery O2 Flow Rate FiO2 11/23/16 07:04 75 14 30 11/23/16 05:47 86 131/68 11/23/16 05:47 131/68 11/23/16 05:07 74 14 30 11/23/16 04:00 97.8 86 18 131/68 100 Mechanical Ventilator 30 11/23/16 04:00 82 11/23/16 04:00 30 11/23/16 03:10 78 14 30 11/23/16 01:02 74 14 30 11/23/16 00:00 99 11/23/16 00:00 98.1 85 15 139/70 100 Mechanical Ventilator 30 11/23/16 00:00 30 11/22/16 23:22 77 14 30 11/22/16 22:16 91 142/78 11/22/16 22:16 142/78 11/22/16 22:15 77 14 30 11/22/16 21:05 71 14 30 11/22/16 20:00 89 11/22/16 20:00 98.1 103 15 118/81 100 Mechanical Ventilator 11/22/16 20:00 30 11/22/16 18:53 70 14 30 11/22/16 16:41 79 14 30 11/22/16 16:00 30 11/22/16 16:00 79 11/22/16 16:00 97.5 83 15 131/83 100 Mechanical Ventilator 30 11/22/16 14:50 76 14 30 11/22/16 14:15 137/71 11/22/16 14:14 83 137/71 11/22/16 13:08 83 14 30 11/22/16 12:00 30 11/22/16 12:00 97.5 92 14 137/71 100 Mechanical Ventilator 30 11/22/16 12:00 90 11/22/16 11:10 85 14 30 11/22/16 09:15 86 14 30 Height (Feet): 5 Height (Inches): 8.00 Weight (Pounds): 190 HEENT: status post trach Respiratory/Chest: other - on ventilator, decreased sounds on left side Cardiovascular: normal rate Abdomen: soft, non tender, other - GT feeding Neurologic/Psychiatric: other - opens eyes Laboratory Tests Test 11/23/16 04:46 White Blood Count 9.7 K/UL (4.8-10.8) Red Blood Count 3.42 M/UL (4.70-6.10) L Hemoglobin 8.8 G/DL (14.2-18.0) L Hematocrit 28.2 % (42.0-52.0) L Mean Corpuscular Volume 82 FL (80-99) Mean Corpuscular Hemoglobin 25.7 PG (27.0-31.0) L Mean Corpuscular Hemoglobin Concent 31.1 G/DL (32.0-36.0) L Red Cell Distribution Width 17.5 % (11.6-14.8) H Platelet Count 664 K/UL (150-450) H Mean Platelet Volume 6.1 FL (6.5-10.1) L Neutrophils (%) (Auto) 68.9 % (45.0-75.0) Lymphocytes (%) (Auto) 11.1 % (20.0-45.0) L Monocytes (%) (Auto) 16.5 % (1.0-10.0) H Eosinophils (%) (Auto) 2.8 % (0.0-3.0) Basophils (%) (Auto) 0.6 % (0.0-2.0) Sodium Level 143 mEQ/L (135-145) Potassium Level 3.4 mEQ/L (3.4-4.9) Chloride Level 101 mEQ/L (98-107) Carbon Dioxide Level 26 mEQ/L (20-30) Anion Gap 16 (5-15) H Blood Urea Nitrogen 94 mg/dL (7-23) H Creatinine 1.0 mg/dL (0.7-1.2) Estimat Glomerular Filtration Rate mL/min (>60) Glucose Level 132 mg/dL (74-106) H Calcium Level 9.6 mg/dL (8.6-10.2) Total Bilirubin 0.4 mg/dL (0.0-1.2) Aspartate Amino Transf (AST/SGOT) 37 U/L (5-40) Alanine Aminotransferase (ALT/SGPT) 27 U/L (3-41) Alkaline Phosphatase 332 U/L (40-129) H Pro-B-Type Natriuretic Peptide 9460 pg/mL (0-450) H Total Protein 5.9 g/dL (6.6-8.7) L Albumin 2.2 g/dL (3.5-5.2) L Globulin 3.7 g/dL Albumin/Globulin Ratio 0.5 (1.0-2.7) L Current Medications Medications (Trade) Dose Ordered Sig/Jose Luis Route PRN Reason Start Time Stop Time Status Last Admin Dose Admin Acetaminophen (Tylenol) 650 mg Q4H PRN ORAL FEVER 11/18/16 09:45 12/18/16 09:44 Albuterol/ Ipratropium (DuoNeb 0.5-3(2.5)mg/3ml) 3 ml EVERY 4 HOURS PRN HHN Shortness of Breath 11/18/16 09:45 11/23/16 09:44 Aztreonam/Sodium Chloride (Azactam/Sodium Chloride) 55 ml @ 110 mls/hr EVERY 8 HOURS IVPB 11/18/16 14:00 11/25/16 13:59 11/23/16 05:48 Dextrose STAT PRN IV Hypoglycemia 11/18/16 09:45 12/18/16 09:44 Heparin Sodium (Porcine) (Heparin 5000 units/ml) 5,000 units EVERY 12 HOURS SUBQ 11/18/16 21:00 12/18/16 20:59 11/23/16 08:11 Hydralazine HCl (Apresoline) 25 mg Q8HR GT 11/18/16 22:00 12/18/16 21:59 11/23/16 05:47 Lansoprazole (Prevacid) 30 mg Q12HR GT 11/20/16 21:00 12/20/16 20:59 11/23/16 08:09 Levofloxacin (Levaquin) 500 mg Q48H GT 11/22/16 21:00 11/25/16 20:59 11/22/16 20:33 Lorazepam (Ativan 2mg/ml 1ml) 2 mg EVERY 2 HOURS PRN IV For Anxiety 11/18/16 09:45 11/25/16 09:44 Methimazole (Tapazole) 7.5 mg DAILY GT 11/18/16 12:00 12/18/16 11:59 11/23/16 08:09 Morphine Sulfate (Morphine Sulfate) 4 mg EVERY 4 HOURS PRN IVP Severe Pain (Pain Scale 7-10) 11/18/16 09:45 11/25/16 09:44 Ondansetron HCl (Zofran) 4 mg Q6H PRN IVP Nausea & Vomiting 11/18/16 09:45 12/18/16 09:44 Polyethylene Glycol (Miralax) 17 gm DAILYPRN PRN ORAL Constipation 11/18/16 09:45 12/18/16 09:44 Propranolol HCl 10 mg 10 mg Q8HR GT 11/21/16 09:45 12/21/16 09:44 11/23/16 05:47 Tamsulosin HCl (Flomax) 0.4 mg BEDTIME GT 11/18/16 21:00 12/18/16 20:59 11/22/16 20:33 Vancomycin HCl/ Dextrose (Vancomycin/D5W) 275 ml @ 183 mls/hr Q24H IVPB 11/22/16 08:00 11/24/16 07:59 11/23/16 08:09 TEMI RUSH Nov 23, 2016 08:14
--- NOTE | 2016-11-23 11:13 | General Progress Note ---
Assessment/Plan Status: stable Status Narrative stable from renal stand Assessment/Plan status: Acute renal failure- Anemia- Chronic Respiratory failure- Hypoalbuminemia- S/P CVA and POCKET CREASER leading to anoxic Encephalopathy- Evidence of UTI Bilateral Pleural effusion HyperThyroidism Plan: Inderal via GT Slow Hydrate- Anemia correia- Transfuse if needed Monitor renal parameters- Per consultants pulmonary support- Subjective ROS Limited/Unobtainable: Yes Allergies: Coded Allergies: PIPERACILLIN (Verified Allergy, Unknown, 11/18/16) TAZOBACTAM (Verified Allergy, Unknown, 11/18/16) Objective Last 24 Hour Vital Signs Date Time Temp Pulse Resp B/P Pulse Ox O2 Delivery O2 Flow Rate FiO2 11/23/16 11:04 82 14 30 11/23/16 09:08 72 14 30 11/23/16 08:00 97.9 86 14 130/62 98 Mechanical Ventilator 98 11/23/16 08:00 30 11/23/16 07:54 82 11/23/16 07:04 75 14 30 11/23/16 05:47 86 131/68 11/23/16 05:47 131/68 11/23/16 05:07 74 14 30 11/23/16 04:00 97.8 86 18 131/68 100 Mechanical Ventilator 30 11/23/16 04:00 82 11/23/16 04:00 30 11/23/16 03:10 78 14 30 11/23/16 01:02 74 14 30 11/23/16 00:00 99 11/23/16 00:00 98.1 85 15 139/70 100 Mechanical Ventilator 30 11/23/16 00:00 30 11/22/16 23:22 77 14 30 11/22/16 22:16 91 142/78 11/22/16 22:16 142/78 11/22/16 22:15 77 14 30 11/22/16 21:05 71 14 30 11/22/16 20:00 89 11/22/16 20:00 98.1 103 15 118/81 100 Mechanical Ventilator 30 11/22/16 20:00 30 11/22/16 18:53 70 14 30 11/22/16 16:41 79 14 30 11/22/16 16:00 30 11/22/16 16:00 79 11/22/16 16:00 97.5 83 15 131/83 100 Mechanical Ventilator 30 11/22/16 14:50 76 14 30 11/22/16 14:15 137/71 11/22/16 14:14 83 137/71 11/22/16 13:08 83 14 30 11/22/16 12:00 30 11/22/16 12:00 97.5 92 14 137/71 100 Mechanical Ventilator 30 11/22/16 12:00 90 Intake and Output 11/22/16 11/23/16 19:00 07:00 Intake Total 936 ml 515 ml Output Total 400 ml 400 ml Balance 536 ml 115 ml Free Water 100 ml 100 ml IV Total 476 ml 55 ml Tube Feeding 360 ml 360 ml Output Urine Total 400 ml 400 ml # Bowel Movements 2 Laboratory Tests 11/23/16 04:46: White Blood Count 9.7, Red Blood Count 3.42L, Hemoglobin 8.8L, Hematocrit 28.2L , Mean Corpuscular Volume 82, Mean Corpuscular Hemoglobin 25.7L, Mean Corpuscular Hemoglobin Concent 31.1L, Red Cell Distribution Width 17.5H, Platelet Count 664H, Mean Platelet Volume 6.1L, Neutrophils (%) (Auto) 68.9, Lymphocytes (%) (Auto) 11.1L, Monocytes (%) (Auto) 16.5H, Eosinophils (%) (Auto ) 2.8, Basophils (%) (Auto) 0.6, Sodium Level 143, Potassium Level 3.4, Chloride Level 101, Carbon Dioxide Level 26, Anion Gap 16H, Blood Urea Nitrogen 94H, Creatinine 1.0, Estimat Glomerular Filtration Rate , Glucose Level 132H, Calcium Level 9.6, Total Bilirubin 0.4, Aspartate Amino Transf (AST/SGOT) 37, Alanine Aminotransferase (ALT/SGPT) 27, Alkaline Phosphatase 332H, Pro-B-Type Natriuretic Peptide 9460H, Total Protein 5.9L, Albumin 2.2L, Globulin 3.7, Albumin/Globulin Ratio 0.5L Height (Feet): 5 Height (Inches): 8.00 Weight (Pounds): 190 General Appearance: no apparent distress Objective other PE not changed SUNITA MITCHELL Nov 23, 2016 11:13
--- NOTE | 2016-11-23 11:15 | Diagnostic Imaging Report ---
Indication: Dyspnea Comparison: 11/22/16 A single view chest radiograph was obtained. Findings: There is little to no change with regard to the relatively large left basilar pneumothorax. Pleural fluid also noted at the left lung base. Pulmonary edema is again demonstrated. There is a right pleural effusion also present. Impression: Ex-vacuo left pneumothorax without change. As stated in previous reports, the pneumothorax occurred as a result of negative pressure phenomenon (ex-vacuo) from a large volume thoracentesis. Would not recommend placing a chest tube unless there is some other indication for doing so. Clinically, one should address the failure of non-expansion of the left lower lobe whether this is due to noncompliant visceral pleura (trapped lung) or whether this is secondary to failure of expansion due to other causes e.g. endobronchial obstruction.
[2016-11-23 12:00] VITALS: BP 136/74
--- NOTE | 2016-11-23 14:33 | Cardiology Progress Note ---
Assessment/Plan Assessment/Plan 1. Chronic respiratory failure. 2. Sinus tachycardia, multifactorial, likely combination of hyperthyroidism inflammation. 3. Anemia. 4. Azotemia. 5. Pleural effusion. 6. Heart failure with preserved ejection fraction. 7. Hyperthyroidism. 8. Pneumothorax hr ok at this time on inderal is already on metamizole echo noted getting ivf already await stool ob in light of anemia and azotemia echo did not show any pericardial efffuiosn but pelural effusion cxr still shows ptx Subjective ROS Limited/Unobtainable: Yes Objective Last 24 Hour Vital Signs Date Time Temp Pulse Resp B/P Pulse Ox O2 Delivery O2 Flow Rate FiO2 11/23/16 13:23 71 14 30 11/23/16 13:04 136/74 11/23/16 13:04 91 136/74 11/23/16 12:00 97.9 91 14 136/74 99 Mechanical Ventilator 30 11/23/16 12:00 30 11/23/16 11:45 87 11/23/16 11:04 82 14 30 11/23/16 09:08 72 14 30 11/23/16 08:00 97.9 86 14 130/62 98 Mechanical Ventilator 98 11/23/16 08:00 30 11/23/16 07:54 82 11/23/16 07:04 75 14 30 11/23/16 05:47 86 131/68 11/23/16 05:47 131/68 11/23/16 05:07 74 14 30 11/23/16 04:00 97.8 86 18 131/68 100 Mechanical Ventilator 30 11/23/16 04:00 82 11/23/16 04:00 30 11/23/16 03:10 78 14 30 11/23/16 01:02 74 14 30 11/23/16 00:00 99 11/23/16 00:00 98.1 85 15 139/70 100 Mechanical Ventilator 30 11/23/16 00:00 30 11/22/16 23:22 77 14 30 11/22/16 22:16 91 142/78 11/22/16 22:16 142/78 11/22/16 22:15 77 14 30 11/22/16 21:05 71 14 30 11/22/16 20:00 89 11/22/16 20:00 98.1 103 15 118/81 100 Mechanical Ventilator 30 11/22/16 20:00 30 11/22/16 18:53 70 14 30 11/22/16 16:41 79 14 30 11/22/16 16:00 30 11/22/16 16:00 79 11/22/16 16:00 97.5 83 15 131/83 100 Mechanical Ventilator 30 11/22/16 14:50 76 14 30 General Appearance: on vent, patient on isolation Neck: supple Cardiovascular: normal rate, regular rhythm Respiratory/Chest: lungs clear, normal breath sounds Abdomen: normal bowel sounds, non tender, soft Extremities: no swelling Intake and Output 11/22/16 11/23/16 19:00 07:00 Intake Total 936 ml 515 ml Output Total 400 ml 400 ml Balance 536 ml 115 ml Free Water 100 ml 100 ml IV Total 476 ml 55 ml Tube Feeding 360 ml 360 ml Output Urine Total 400 ml 400 ml # Bowel Movements 2 Laboratory Tests Test 11/23/16 04:46 White Blood Count 9.7 K/UL (4.8-10.8) Red Blood Count 3.42 M/UL (4.70-6.10) L Hemoglobin 8.8 G/DL (14.2-18.0) L Hematocrit 28.2 % (42.0-52.0) L Mean Corpuscular Volume 82 FL (80-99) Mean Corpuscular Hemoglobin 25.7 PG (27.0-31.0) L Mean Corpuscular Hemoglobin Concent 31.1 G/DL (32.0-36.0) L Red Cell Distribution Width 17.5 % (11.6-14.8) H Platelet Count 664 K/UL (150-450) H Mean Platelet Volume 6.1 FL (6.5-10.1) L Neutrophils (%) (Auto) 68.9 % (45.0-75.0) Lymphocytes (%) (Auto) 11.1 % (20.0-45.0) L Monocytes (%) (Auto) 16.5 % (1.0-10.0) H Eosinophils (%) (Auto) 2.8 % (0.0-3.0) Basophils (%) (Auto) 0.6 % (0.0-2.0) Sodium Level 143 mEQ/L (135-145) Potassium Level 3.4 mEQ/L (3.4-4.9) Chloride Level 101 mEQ/L (98-107) Carbon Dioxide Level 26 mEQ/L (20-30) Anion Gap 16 (5-15) H Blood Urea Nitrogen 94 mg/dL (7-23) H Creatinine 1.0 mg/dL (0.7-1.2) Estimat Glomerular Filtration Rate mL/min (>60) Glucose Level 132 mg/dL (74-106) H Calcium Level 9.6 mg/dL (8.6-10.2) Total Bilirubin 0.4 mg/dL (0.0-1.2) Aspartate Amino Transf (AST/SGOT) 37 U/L (5-40) Alanine Aminotransferase (ALT/SGPT) 27 U/L (3-41) Alkaline Phosphatase 332 U/L (40-129) H Pro-B-Type Natriuretic Peptide 9460 pg/mL (0-450) H Total Protein 5.9 g/dL (6.6-8.7) L Albumin 2.2 g/dL (3.5-5.2) L Globulin 3.7 g/dL Albumin/Globulin Ratio 0.5 (1.0-2.7) L JULIÁN ARANGO Nov 23, 2016 14:33
[2016-11-23 16:00] VITALS: BP 122/72
--- NOTE | 2016-11-23 17:05 | Pulmonology Progress Note ---
Assessment/Plan Problems: (1) Acute and chronic respiratory failure (2) Pneumothorax (3) ATN (acute tubular necrosis) (4) Bilateral pleural effusion (5) Anemia (6) Feeding by G-tube Respiratory: monitor respiratory rate, adjust FIO2 Cardiac: continue to monitor HR/BP Renal: F/U I&O Infectious Disease: check cultures Gastrointestinal: continue feedings/current rate Endocrine: monitor blood sugar Hematologic: monitor H/H Subjective ROS Limited/Unobtainable: Yes Allergies: Coded Allergies: PIPERACILLIN (Verified Allergy, Unknown, 11/18/16) TAZOBACTAM (Verified Allergy, Unknown, 11/18/16) Objective Last 24 Hour Vital Signs Date Time Temp Pulse Resp B/P Pulse Ox O2 Delivery O2 Flow Rate FiO2 11/23/16 16:59 73 14 30 11/23/16 16:00 30 11/23/16 14:42 73 14 30 11/23/16 13:23 71 14 30 11/23/16 13:04 136/74 11/23/16 13:04 91 136/74 11/23/16 12:00 97.9 91 14 136/74 99 Mechanical Ventilator 30 11/23/16 12:00 30 11/23/16 11:45 87 11/23/16 11:04 82 14 30 11/23/16 09:08 72 14 30 11/23/16 08:00 97.9 86 14 130/62 98 Mechanical Ventilator 98 11/23/16 08:00 30 11/23/16 07:54 82 11/23/16 07:04 75 14 30 11/23/16 05:47 86 131/68 11/23/16 05:47 131/68 11/23/16 05:07 74 14 30 11/23/16 04:00 97.8 86 18 131/68 100 Mechanical Ventilator 30 11/23/16 04:00 82 11/23/16 04:00 30 11/23/16 03:10 78 14 30 11/23/16 01:02 74 14 30 11/23/16 00:00 99 11/23/16 00:00 98.1 85 15 139/70 100 Mechanical Ventilator 30 11/23/16 00:00 30 11/22/16 23:22 77 14 30 11/22/16 22:16 91 142/78 11/22/16 22:16 142/78 11/22/16 22:15 77 14 30 11/22/16 21:05 71 14 30 11/22/16 20:00 89 11/22/16 20:00 98.1 103 15 118/81 100 Mechanical Ventilator 30 11/22/16 20:00 30 11/22/16 18:53 70 14 30 Intake and Output 11/22/16 11/23/16 19:00 07:00 Intake Total 936 ml 515 ml Output Total 400 ml 400 ml Balance 536 ml 115 ml Free Water 100 ml 100 ml IV Total 476 ml 55 ml Tube Feeding 360 ml 360 ml Output Urine Total 400 ml 400 ml # Bowel Movements 2 Objective General Appearance: cachetic HEENT: normocephalic, atraumatic Respiratory/Chest: chest wall non-tender, lungs clear Cardiovascular: normal peripheral pulses, normal rate Abdomen: soft, non tender Genitourinary: normal external genitalia Extremities: no cyanosis Skin: no rash, no lesions Laboratory Tests 11/23/16 04:46: White Blood Count 9.7, Red Blood Count 3.42L, Hemoglobin 8.8L, Hematocrit 28.2L , Mean Corpuscular Volume 82, Mean Corpuscular Hemoglobin 25.7L, Mean Corpuscular Hemoglobin Concent 31.1L, Red Cell Distribution Width 17.5H, Platelet Count 664H, Mean Platelet Volume 6.1L, Neutrophils (%) (Auto) 68.9, Lymphocytes (%) (Auto) 11.1L, Monocytes (%) (Auto) 16.5H, Eosinophils (%) (Auto ) 2.8, Basophils (%) (Auto) 0.6, Sodium Level 143, Potassium Level 3.4, Chloride Level 101, Carbon Dioxide Level 26, Anion Gap 16H, Blood Urea Nitrogen 94H, Creatinine 1.0, Estimat Glomerular Filtration Rate , Glucose Level 132H, Calcium Level 9.6, Total Bilirubin 0.4, Aspartate Amino Transf (AST/SGOT) 37, Alanine Aminotransferase (ALT/SGPT) 27, Alkaline Phosphatase 332H, Pro-B-Type Natriuretic Peptide 9460H, Total Protein 5.9L, Albumin 2.2L, Globulin 3.7, Albumin/Globulin Ratio 0.5L 11/23/16 14:25: Stool Occult Blood [Pending] Current Medications Medications (Trade) Dose Ordered Sig/Jose Luis Route PRN Reason Start Time Stop Time Status Last Admin Dose Admin Acetaminophen (Tylenol) 650 mg Q4H PRN ORAL FEVER 11/18/16 09:45 12/18/16 09:44 Dextrose (Dextrose 50%) STAT PRN IV Hypoglycemia 11/18/16 09:45 12/18/16 09:44 Heparin Sodium (Porcine) (Heparin 5000 units/ml) 5,000 units EVERY 12 HOURS SUBQ 11/18/16 21:00 12/18/16 20:59 11/23/16 08:11 Hydralazine HCl (Apresoline) 25 mg Q6HR GT 11/23/16 12:00 12/23/16 11:59 11/23/16 13:04 Lansoprazole (Prevacid) 30 mg Q12HR GT 11/20/16 21:00 12/20/16 20:59 11/23/16 08:09 Lorazepam (Ativan 2mg/ml 1ml) 2 mg EVERY 2 HOURS PRN IV For Anxiety 11/18/16 09:45 11/25/16 09:44 Methimazole (Tapazole) 7.5 mg DAILY GT 11/18/16 12:00 12/18/16 11:59 11/23/16 08:09 Morphine Sulfate (Morphine Sulfate) 4 mg EVERY 4 HOURS PRN IVP Severe Pain (Pain Scale 7-10) 11/18/16 09:45 11/25/16 09:44 Ondansetron HCl (Zofran) 4 mg Q6H PRN IVP Nausea & Vomiting 11/18/16 09:45 12/18/16 09:44 Polyethylene Glycol (Miralax) 17 gm DAILYPRN PRN ORAL Constipation 11/18/16 09:45 12/18/16 09:44 Propranolol HCl (Inderal) 10 mg Q8HR GT 11/21/16 09:45 12/21/16 09:44 11/23/16 13:04 Tamsulosin HCl (Flomax) 0.4 mg BEDTIME GT 11/18/16 21:00 12/18/16 20:59 11/22/16 20:33 TRACI HAILE Nov 23, 2016 17:05
[2016-11-23 20:00] VITALS: BP 132/61
[2016-11-23] MEDS: Tamsulosin 0.4mg cap GT SCH (21:29)
[2016-11-24] VITALS (7 sets, daily range): BP systolic 122–159; BP diastolic 48–79
[2016-11-24] MEDS: HydrALAZINE 25mg tab GT SCH ×5 (00:47→23:34)
[2016-11-24 05:28] LABS: BASOPHILS % (AUTO) 0.5 % (0.0-2.0); EOSINOPHILS % (AUTO) 3.9 % (0.0-3.0); LYMPHOCYTES % (AUTO) 9.5 % (20.0-45.0); MEAN CORPUSCULAR HEMOGLOBIN 25.5 PG (27.0-31.0); MEAN CORPUSCULAR HGB CONC 31.2 G/DL (32.0-36.0); MEAN CORPUSCULAR VOLUME 82 FL (80-99); MEAN PLATELET VOLUME 6.2 FL (6.5-10.1); MONOCYTES % (AUTO) 15.9 % (1.0-10.0); NEUTROPHILS % (AUTO) 70.1 % (45.0-75.0); PLATELET COUNT 663 K/UL (150-450); RED BLOOD COUNT 3.56 M/UL (4.70-6.10); RED CELL DISTRIBUTION WIDTH 17.4 % (11.6-14.8); WHITE BLOOD COUNT 10.5 K/UL (4.8-10.8)
[2016-11-24] MEDS: Propranolol 10mg tab GT SCH ×3 (05:56→21:01)
[2016-11-24 06:00] LABS: ALANINE AMINOTRANSFERASE 26 U/L (3-41); ALBUMIN/GLOBULIN RATIO 0.5 (1.0-2.7); ANION GAP 18 (5-15); ASPARTATE AMINO TRANSFERASE 37 U/L (5-40); CALCIUM 9.4 mg/dL (8.6-10.2); CARBON DIOXIDE 23 mEQ/L (20-30); CHLORIDE 102 mEQ/L (98-107); CREATININE 1.1 mg/dL (0.7-1.2); HEMOLYSIS 21; POTASSIUM 3.7 mEQ/L (3.4-4.9); SODIUM 143 mEQ/L (135-145); TOTAL PROTEIN 5.6 g/dL (6.6-8.7)
[2016-11-24] MEDS: Heparin 5000 units/ml inj SUBQ SCH ×2 (09:20→20:48)
[2016-11-24] MEDS: Methimazole 5mg tab GT SCH (09:20)
--- NOTE | 2016-11-24 10:03 | General Progress Note ---
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- Evidence of UTI Bilateral Pleural effusion HyperThyroidism Plan: Inderal via GT Slow Hydrate- Anemia correia- Transfuse if needed Monitor renal parameters- Per consultants pulmonary support- Subjective ROS Limited/Unobtainable: Yes Allergies: Coded Allergies: PIPERACILLIN (Verified Allergy, Unknown, 11/18/16) TAZOBACTAM (Verified Allergy, Unknown, 11/18/16) Objective Last 24 Hour Vital Signs Date Time Temp Pulse Resp B/P Pulse Ox O2 Delivery O2 Flow Rate FiO2 11/24/16 09:23 86 14 30 11/24/16 08:00 30 11/24/16 08:00 87 11/24/16 08:00 97.9 85 14 130/74 99 Mechanical Ventilator 30 11/24/16 07:04 81 14 30 11/24/16 05:56 129/66 11/24/16 05:56 92 129/66 11/24/16 04:57 92 14 30 11/24/16 04:05 97.7 91 18 124/65 97 Mechanical Ventilator 30 11/24/16 04:00 30 11/24/16 04:00 92 11/24/16 03:30 91 14 30 11/24/16 01:20 89 14 30 11/24/16 00:47 132/65 11/24/16 00:00 97.3 76 18 122/48 99 Mechanical Ventilator 30 11/24/16 00:00 86 11/24/16 00:00 30 11/23/16 23:20 74 14 30 11/23/16 21:34 89 131/70 11/23/16 21:05 76 14 30 11/23/16 20:00 30 11/23/16 20:00 97.0 85 18 132/61 98 Mechanical Ventilator 30 11/23/16 20:00 86 11/23/16 19:05 85 14 30 11/23/16 17:37 122/72 11/23/16 17:00 85 11/23/16 16:59 73 14 30 11/23/16 16:00 30 11/23/16 16:00 98.2 87 14 122/72 99 Mechanical Ventilator 30 11/23/16 14:42 73 14 30 11/23/16 13:23 71 14 30 11/23/16 13:04 136/74 11/23/16 13:04 91 136/74 11/23/16 12:00 97.9 91 14 136/74 99 Mechanical Ventilator 30 11/23/16 12:00 30 11/23/16 11:45 87 11/23/16 11:04 82 14 30 Intake and Output 11/23/16 11/24/16 19:00 07:00 Intake Total 640 ml 510 ml Output Total 475 ml 400 ml Balance 165 ml 110 ml Free Water 100 ml Tube Feeding 360 ml 360 ml Other 180 ml 150 ml Output Urine Total 475 ml 400 ml # Bowel Movements 2 3 Laboratory Tests 11/23/16 14:25: Stool Occult Blood Negative 11/24/16 03:35: Sodium Level 143, Potassium Level 3.7, Chloride Level 102, Carbon Dioxide Level 23, Anion Gap 18H, Blood Urea Nitrogen 88H, Creatinine 1.1, Estimat Glomerular Filtration Rate , Glucose Level 131H, Calcium Level 9.4, Total Bilirubin 0.4, Aspartate Amino Transf (AST/SGOT) 37, Alanine Aminotransferase (ALT/SGPT) 26, Alkaline Phosphatase 321H, Pro-B-Type Natriuretic Peptide 9164H, Total Protein 5.6L, Albumin 1.9L, Globulin 3.7, Albumin/Globulin Ratio 0.5L 11/24/16 05:35: White Blood Count 10.5, Red Blood Count 3.56L, Hemoglobin 9.1L, Hematocrit 29.2L , Mean Corpuscular Volume 82, Mean Corpuscular Hemoglobin 25.5L, Mean Corpuscular Hemoglobin Concent 31.2L, Red Cell Distribution Width 17.4H, Platelet Count 663H, Mean Platelet Volume 6.2L, Neutrophils (%) (Auto) 70.1, Lymphocytes (%) (Auto) 9.5L, Monocytes (%) (Auto) 15.9H, Eosinophils (%) (Auto) 3.9H, Basophils (%) (Auto) 0.5 Height (Feet): 5 Height (Inches): 8.00 Weight (Pounds): 189 General Appearance: no apparent distress Objective other PE not changed SUNITA MITCHELL Nov 24, 2016 10:03
--- NOTE | 2016-11-24 10:50 | Infectious Diseases Prog Note ---
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 Cholecystitis not excluded. Leukocytosis SP Sepsis SP Afebrile Acute RLE popliteal vein DVT Chronic VDRF SP trach, PEG Chronic encephalopathy Seizure disorder History of myocardial infarction Anemia Diabetes Zosyn allergy Full Code PLAN: monitor pt off of AB Rx 11/23 SP IV vancomycin, Levaquin, and Azactam d# 5 Monitor CBC Monitor BMP Monitor liver function tests HIDA: P vent support, trach care, aspiration precautions Subjective Allergies: Coded Allergies: PIPERACILLIN (Verified Allergy, Unknown, 11/18/16) TAZOBACTAM (Verified Allergy, Unknown, 11/18/16) Subjective afebrile Objective Vital Signs Last 24 Hour Vital Signs Date Time Temp Pulse Resp B/P Pulse Ox O2 Delivery O2 Flow Rate FiO2 11/24/16 09:23 86 14 30 11/24/16 08:00 30 11/24/16 08:00 87 11/24/16 08:00 97.9 85 14 130/74 99 Mechanical Ventilator 30 11/24/16 07:04 81 14 30 11/24/16 05:56 129/66 11/24/16 05:56 92 129/66 11/24/16 04:57 92 14 30 11/24/16 04:05 97.7 91 18 124/65 97 Mechanical Ventilator 30 11/24/16 04:00 30 11/24/16 04:00 92 11/24/16 03:30 91 14 30 11/24/16 01:20 89 14 30 11/24/16 00:47 132/65 11/24/16 00:00 97.3 76 18 122/48 99 Mechanical Ventilator 30 11/24/16 00:00 86 11/24/16 00:00 30 11/23/16 23:20 74 14 30 11/23/16 21:34 89 131/70 11/23/16 21:05 76 14 30 11/23/16 20:00 30 11/23/16 20:00 97.0 85 18 132/61 98 Mechanical Ventilator 30 11/23/16 20:00 86 11/23/16 19:05 85 14 30 11/23/16 17:37 122/72 11/23/16 17:00 85 11/23/16 16:59 73 14 30 11/23/16 16:00 30 11/23/16 16:00 98.2 87 14 122/72 99 Mechanical Ventilator 30 11/23/16 14:42 73 14 30 11/23/16 13:23 71 14 30 11/23/16 13:04 136/74 11/23/16 13:04 91 136/74 11/23/16 12:00 97.9 91 14 136/74 99 Mechanical Ventilator 30 11/23/16 12:00 30 11/23/16 11:45 87 11/23/16 11:04 82 14 30 Height (Feet): 5 Height (Inches): 8.00 Weight (Pounds): 189 HEENT: anicteric Respiratory/Chest: no respiratory distress Cardiovascular: no gallop/murmur Abdomen: non distended Laboratory Tests Test 11/23/16 14:25 11/24/16 03:35 11/24/16 05:35 Stool Occult Blood Negative (NEGATIVE) Sodium Level 143 mEQ/L (135-145) Potassium Level 3.7 mEQ/L (3.4-4.9) Chloride Level 102 mEQ/L (98-107) Carbon Dioxide Level 23 mEQ/L (20-30) Anion Gap 18 (5-15) H Blood Urea Nitrogen 88 mg/dL (7-23) H Creatinine 1.1 mg/dL (0.7-1.2) Estimat Glomerular Filtration Rate mL/min (>60) Glucose Level 131 mg/dL (74-106) H Calcium Level 9.4 mg/dL (8.6-10.2) Total Bilirubin 0.4 mg/dL (0.0-1.2) Aspartate Amino Transf (AST/SGOT) 37 U/L (5-40) Alanine Aminotransferase (ALT/SGPT) 26 U/L (3-41) Alkaline Phosphatase 321 U/L (40-129) H Pro-B-Type Natriuretic Peptide 9164 pg/mL (0-450) H Total Protein 5.6 g/dL (6.6-8.7) L Albumin 1.9 g/dL (3.5-5.2) L Globulin 3.7 g/dL Albumin/Globulin Ratio 0.5 (1.0-2.7) L White Blood Count 10.5 K/UL (4.8-10.8) Red Blood Count 3.56 M/UL (4.70-6.10) L Hemoglobin 9.1 G/DL (14.2-18.0) L Hematocrit 29.2 % (42.0-52.0) L Mean Corpuscular Volume 82 FL (80-99) Mean Corpuscular Hemoglobin 25.5 PG (27.0-31.0) L Mean Corpuscular Hemoglobin Concent 31.2 G/DL (32.0-36.0) L Red Cell Distribution Width 17.4 % (11.6-14.8) H Platelet Count 663 K/UL (150-450) H Mean Platelet Volume 6.2 FL (6.5-10.1) L Neutrophils (%) (Auto) 70.1 % (45.0-75.0) Lymphocytes (%) (Auto) 9.5 % (20.0-45.0) L Monocytes (%) (Auto) 15.9 % (1.0-10.0) H Eosinophils (%) (Auto) 3.9 % (0.0-3.0) H Basophils (%) (Auto) 0.5 % (0.0-2.0) Current Medications Medications (Trade) Dose Ordered Sig/Jose Luis Route PRN Reason Start Time Stop Time Status Last Admin Dose Admin Acetaminophen (Tylenol) 650 mg Q4H PRN ORAL FEVER 11/18/16 09:45 12/18/16 09:44 Dextrose (Dextrose 50%) STAT PRN IV Hypoglycemia 11/18/16 09:45 12/18/16 09:44 Heparin Sodium (Porcine) (Heparin 5000 units/ml) 5,000 units EVERY 12 HOURS SUBQ 11/18/16 21:00 12/18/16 20:59 11/24/16 09:20 Hydralazine HCl (Apresoline) 25 mg Q6HR GT 11/23/16 12:00 12/23/16 11:59 11/24/16 05:56 Lansoprazole (Prevacid) 30 mg Q12HR GT 11/20/16 21:00 12/20/16 20:59 11/24/16 09:19 Lorazepam (Ativan 2mg/ml 1ml) 2 mg EVERY 2 HOURS PRN IV For Anxiety 11/18/16 09:45 11/25/16 09:44 Methimazole (Tapazole) 7.5 mg DAILY GT 11/18/16 12:00 12/18/16 11:59 11/24/16 09:20 Morphine Sulfate (Morphine Sulfate) 4 mg EVERY 4 HOURS PRN IVP Severe Pain (Pain Scale 7-10) 11/18/16 09:45 11/25/16 09:44 Ondansetron HCl (Zofran) 4 mg Q6H PRN IVP Nausea & Vomiting 11/18/16 09:45 12/18/16 09:44 Polyethylene Glycol (Miralax) 17 gm DAILYPRN PRN ORAL Constipation 11/18/16 09:45 12/18/16 09:44 Propranolol HCl (Inderal) 10 mg Q8HR GT 11/21/16 09:45 12/21/16 09:44 11/24/16 05:56 Tamsulosin HCl (Flomax) 0.4 mg BEDTIME GT 11/18/16 21:00 12/18/16 20:59 11/23/16 21:29 SHIV CARDOZA M.D. Nov 24, 2016 10:50
[2016-11-24] MEDS ORDERED: NS 275ml ONE (11:04)
--- NOTE | 2016-11-24 11:27 | Pulmonology Progress Note ---
Assessment/Plan Problems: (1) Acute and chronic respiratory failure (2) Pneumothorax (3) ATN (acute tubular necrosis) (4) Bilateral pleural effusion (5) Anemia (6) Feeding by G-tube Respiratory: monitor respiratory rate, adjust FIO2 Cardiac: continue to monitor HR/BP Renal: F/U I&O, keep IV fluid Infectious Disease: check cultures Gastrointestinal: continue feedings/current rate Endocrine: monitor blood sugar, check HgA1C Hematologic: monitor H/H Neurologic: PRN Morphine Affect: PRN ativan Prophylaxis: Protonix Notes Reviewed: quotation clerk, 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, consultants, supervisor case loading Subjective ROS Limited/Unobtainable: No Constitutional: Reports: no symptoms HEENT: Repors: no symptoms Allergies: Coded Allergies: PIPERACILLIN (Verified Allergy, Unknown, 11/18/16) TAZOBACTAM (Verified Allergy, Unknown, 11/18/16) Objective Last 24 Hour Vital Signs Date Time Temp Pulse Resp B/P Pulse Ox O2 Delivery O2 Flow Rate FiO2 11/24/16 10:58 85 14 30 11/24/16 09:23 86 14 30 11/24/16 08:00 30 11/24/16 08:00 87 11/24/16 08:00 97.9 85 14 130/74 99 Mechanical Ventilator 30 11/24/16 07:04 81 14 30 11/24/16 05:56 129/66 11/24/16 05:56 92 129/66 11/24/16 04:57 92 14 30 11/24/16 04:05 97.7 91 18 124/65 97 Mechanical Ventilator 30 11/24/16 04:00 30 11/24/16 04:00 92 11/24/16 03:30 91 14 30 11/24/16 01:20 89 14 30 11/24/16 00:47 132/65 11/24/16 00:00 97.3 76 18 122/48 99 Mechanical Ventilator 30 11/24/16 00:00 86 11/24/16 00:00 30 11/23/16 23:20 74 14 30 11/23/16 21:34 89 131/70 11/23/16 21:05 76 14 30 11/23/16 20:00 30 11/23/16 20:00 97.0 85 18 132/61 98 Mechanical Ventilator 30 11/23/16 20:00 86 11/23/16 19:05 85 14 30 11/23/16 17:37 122/72 11/23/16 17:00 85 11/23/16 16:59 73 14 30 11/23/16 16:00 30 11/23/16 16:00 98.2 87 14 122/72 99 Mechanical Ventilator 30 11/23/16 14:42 73 14 30 11/23/16 13:23 71 14 30 11/23/16 13:04 136/74 11/23/16 13:04 91 136/74 11/23/16 12:00 97.9 91 14 136/74 99 Mechanical Ventilator 30 11/23/16 12:00 30 11/23/16 11:45 87 Intake and Output 11/23/16 11/24/16 19:00 07:00 Intake Total 640 ml 510 ml Output Total 475 ml 400 ml Balance 165 ml 110 ml Free Water 100 ml Tube Feeding 360 ml 360 ml Other 180 ml 150 ml Output Urine Total 475 ml 400 ml # Bowel Movements 2 3 Objective General Appearance: cachetic HEENT: normocephalic, atraumatic Respiratory/Chest: chest wall non-tender, lungs clear Cardiovascular: normal peripheral pulses, normal rate Abdomen: soft, non tender Genitourinary: normal external genitalia Extremities: no cyanosis Skin: no rash, no lesions Laboratory Tests 11/23/16 14:25: Stool Occult Blood Negative 11/24/16 03:35: Sodium Level 143, Potassium Level 3.7, Chloride Level 102, Carbon Dioxide Level 23, Anion Gap 18H, Blood Urea Nitrogen 88H, Creatinine 1.1, Estimat Glomerular Filtration Rate , Glucose Level 131H, Calcium Level 9.4, Total Bilirubin 0.4, Aspartate Amino Transf (AST/SGOT) 37, Alanine Aminotransferase (ALT/SGPT) 26, Alkaline Phosphatase 321H, Pro-B-Type Natriuretic Peptide 9164H, Total Protein 5.6L, Albumin 1.9L, Globulin 3.7, Albumin/Globulin Ratio 0.5L 11/24/16 05:35: White Blood Count 10.5, Red Blood Count 3.56L, Hemoglobin 9.1L, Hematocrit 29.2L , Mean Corpuscular Volume 82, Mean Corpuscular Hemoglobin 25.5L, Mean Corpuscular Hemoglobin Concent 31.2L, Red Cell Distribution Width 17.4H, Platelet Count 663H, Mean Platelet Volume 6.2L, Neutrophils (%) (Auto) 70.1, Lymphocytes (%) (Auto) 9.5L, Monocytes (%) (Auto) 15.9H, Eosinophils (%) (Auto) 3.9H, Basophils (%) (Auto) 0.5 Current Medications Medications (Trade) Dose Ordered Sig/Jose Luis Route PRN Reason Start Time Stop Time Status Last Admin Dose Admin Acetaminophen (Tylenol) 650 mg Q4H PRN ORAL FEVER 11/18/16 09:45 12/18/16 09:44 Dextrose (Dextrose 50%) STAT PRN IV Hypoglycemia 11/18/16 09:45 12/18/16 09:44 Heparin Sodium (Porcine) (Heparin 5000 units/ml) 5,000 units EVERY 12 HOURS SUBQ 11/18/16 21:00 12/18/16 20:59 11/24/16 09:20 Hydralazine HCl (Apresoline) 25 mg Q6HR GT 11/23/16 12:00 12/23/16 11:59 11/24/16 05:56 Lansoprazole (Prevacid) 30 mg Q12HR GT 11/20/16 21:00 12/20/16 20:59 11/24/16 09:19 Lorazepam (Ativan 2mg/ml 1ml) 2 mg EVERY 2 HOURS PRN IV For Anxiety 11/18/16 09:45 11/25/16 09:44 Methimazole (Tapazole) 7.5 mg DAILY GT 11/18/16 12:00 12/18/16 11:59 11/24/16 09:20 Morphine Sulfate (Morphine Sulfate) 4 mg EVERY 4 HOURS PRN IVP Severe Pain (Pain Scale 7-10) 11/18/16 09:45 11/25/16 09:44 Ondansetron HCl (Zofran) 4 mg Q6H PRN IVP Nausea & Vomiting 11/18/16 09:45 12/18/16 09:44 Polyethylene Glycol (Miralax) 17 gm DAILYPRN PRN ORAL Constipation 11/18/16 09:45 12/18/16 09:44 Propranolol HCl (Inderal) 10 mg Q8HR GT 11/21/16 09:45 12/21/16 09:44 11/24/16 05:56 Tamsulosin HCl (Flomax) 0.4 mg BEDTIME GT 11/18/16 21:00 12/18/16 20:59 11/23/16 21:29 TRACI HAILE Nov 24, 2016 11:27
--- NOTE | 2016-11-24 19:09 | Cardiology Progress Note ---
Assessment/Plan Assessment/Plan 1. Chronic respiratory failure. 2. Sinus tachycardia, multifactorial, likely combination of hyperthyroidism inflammation. 3. Anemia. 4. Azotemia. 5. Pleural effusion. 6. Heart failure with preserved ejection fraction. 7. Hyperthyroidism. 8. Pneumothorax hr ok at this time on inderal is already on metamizole getting ivf already stool ob neg echo did not show any pericardial efffuiosn but pelural effusion cxr still shows ptx as of yest not sig changed since yest Subjective ROS Limited/Unobtainable: Yes Objective Last 24 Hour Vital Signs Date Time Temp Pulse Resp B/P Pulse Ox O2 Delivery O2 Flow Rate FiO2 11/24/16 18:18 149/61 11/24/16 17:19 83 14 30 11/24/16 16:20 76 11/24/16 16:20 30 11/24/16 16:00 97.2 78 14 149/61 98 Mechanical Ventilator 30 11/24/16 15:05 80 14 30 11/24/16 14:53 88 159/79 11/24/16 12:45 85 14 30 11/24/16 12:03 159/79 11/24/16 11:50 97.5 88 16 159/79 99 Mechanical Ventilator 30 11/24/16 11:28 85 11/24/16 11:28 30 11/24/16 10:58 85 14 30 11/24/16 09:23 86 14 30 11/24/16 08:00 30 11/24/16 08:00 87 11/24/16 08:00 97.9 85 14 130/74 99 Mechanical Ventilator 30 11/24/16 07:04 81 14 30 11/24/16 05:56 129/66 11/24/16 05:56 92 129/66 11/24/16 04:57 92 14 30 11/24/16 04:05 97.7 91 18 124/65 97 Mechanical Ventilator 30 11/24/16 04:00 30 11/24/16 04:00 92 11/24/16 03:30 91 14 30 11/24/16 01:20 89 14 30 11/24/16 00:47 132/65 11/24/16 00:00 97.3 76 18 122/48 99 Mechanical Ventilator 30 11/24/16 00:00 86 11/24/16 00:00 30 11/23/16 23:20 74 14 30 11/23/16 21:34 89 131/70 11/23/16 21:05 76 14 30 11/23/16 20:00 30 11/23/16 20:00 97.0 85 18 132/61 98 Mechanical Ventilator 30 11/23/16 20:00 86 General Appearance: on vent, patient on isolation Neck: supple Cardiovascular: normal rate, regular rhythm Respiratory/Chest: lungs clear, normal breath sounds Abdomen: non tender, soft Extremities: no swelling Intake and Output 11/23/16 11/24/16 19:00 07:00 Intake Total 640 ml 510 ml Output Total 475 ml 400 ml Balance 165 ml 110 ml Free Water 100 ml Tube Feeding 360 ml 360 ml Other 180 ml 150 ml Output Urine Total 475 ml 400 ml # Bowel Movements 2 3 Laboratory Tests Test 11/24/16 03:35 11/24/16 05:35 Sodium Level 143 mEQ/L (135-145) Potassium Level 3.7 mEQ/L (3.4-4.9) Chloride Level 102 mEQ/L (98-107) Carbon Dioxide Level 23 mEQ/L (20-30) Anion Gap 18 (5-15) H Blood Urea Nitrogen 88 mg/dL (7-23) H Creatinine 1.1 mg/dL (0.7-1.2) Estimat Glomerular Filtration Rate mL/min (>60) Glucose Level 131 mg/dL (74-106) H Calcium Level 9.4 mg/dL (8.6-10.2) Total Bilirubin 0.4 mg/dL (0.0-1.2) Aspartate Amino Transf (AST/SGOT) 37 U/L (5-40) Alanine Aminotransferase (ALT/SGPT) 26 U/L (3-41) Alkaline Phosphatase 321 U/L (40-129) H Pro-B-Type Natriuretic Peptide 9164 pg/mL (0-450) H Total Protein 5.6 g/dL (6.6-8.7) L Albumin 1.9 g/dL (3.5-5.2) L Globulin 3.7 g/dL Albumin/Globulin Ratio 0.5 (1.0-2.7) L White Blood Count 10.5 K/UL (4.8-10.8) Red Blood Count 3.56 M/UL (4.70-6.10) L Hemoglobin 9.1 G/DL (14.2-18.0) L Hematocrit 29.2 % (42.0-52.0) L Mean Corpuscular Volume 82 FL (80-99) Mean Corpuscular Hemoglobin 25.5 PG (27.0-31.0) L Mean Corpuscular Hemoglobin Concent 31.2 G/DL (32.0-36.0) L Red Cell Distribution Width 17.4 % (11.6-14.8) H Platelet Count 663 K/UL (150-450) H Mean Platelet Volume 6.2 FL (6.5-10.1) L Neutrophils (%) (Auto) 70.1 % (45.0-75.0) Lymphocytes (%) (Auto) 9.5 % (20.0-45.0) L Monocytes (%) (Auto) 15.9 % (1.0-10.0) H Eosinophils (%) (Auto) 3.9 % (0.0-3.0) H Basophils (%) (Auto) 0.5 % (0.0-2.0) JULIÁN ARANGO Nov 24, 2016 19:09
[2016-11-24] MEDS: Tamsulosin 0.4mg cap GT SCH (20:45)
[2016-11-25 04:00] VITALS: BP 119/80
[2016-11-25] MEDS: HydrALAZINE 25mg tab GT SCH ×3 (05:14→17:46)
[2016-11-25] MEDS: Propranolol 10mg tab GT SCH ×3 (05:14→21:55)
[2016-11-25 05:25] LABS: BASOPHILS % (AUTO) 0.6 % (0.0-2.0); EOSINOPHILS % (AUTO) 2.9 % (0.0-3.0); LYMPHOCYTES % (AUTO) 12.9 % (20.0-45.0); MEAN CORPUSCULAR HEMOGLOBIN 24.8 PG (27.0-31.0); MEAN CORPUSCULAR HGB CONC 30.6 G/DL (32.0-36.0); MEAN CORPUSCULAR VOLUME 81 FL (80-99); MEAN PLATELET VOLUME 6.3 FL (6.5-10.1); MONOCYTES % (AUTO) 15.7 % (1.0-10.0); NEUTROPHILS % (AUTO) 67.9 % (45.0-75.0); PLATELET COUNT 665 K/UL (150-450); RED BLOOD COUNT 3.81 M/UL (4.70-6.10); RED CELL DISTRIBUTION WIDTH 17.3 % (11.6-14.8); WHITE BLOOD COUNT 10.2 K/UL (4.8-10.8)
[2016-11-25 06:03] LABS: ALANINE AMINOTRANSFERASE 27 U/L (3-41); ALBUMIN/GLOBULIN RATIO 0.5 (1.0-2.7); ANION GAP 16 (5-15); ASPARTATE AMINO TRANSFERASE 36 U/L (5-40); CALCIUM 9.5 mg/dL (8.6-10.2); CARBON DIOXIDE 23 mEQ/L (20-30); CHLORIDE 104 mEQ/L (98-107); CREATININE 1.1 mg/dL (0.7-1.2); HEMOLYSIS 2; POTASSIUM 3.9 mEQ/L (3.4-4.9); SODIUM 143 mEQ/L (135-145); TOTAL PROTEIN 6.1 g/dL (6.6-8.7)
[2016-11-25 08:00] VITALS: BP 138/76
[2016-11-25] MEDS: Methimazole 5mg tab GT SCH (09:25)
[2016-11-25] MEDS: Artificial Tears 1.4% Op Soln BOTH EYES SCH ×2 (09:25→17:47)
[2016-11-25] MEDS: Heparin 5000 units/ml inj SUBQ SCH ×2 (09:26→20:45)
--- NOTE | 2016-11-25 10:16 | Diagnostic Imaging Report ---
Indications: DYSPNEA Technique: Portable AP chest Findings: Comparison: 11/24/2016 Circumferential left pneumothorax has increased in size, currently measuring approximately 85-40% of hemithoracic volume by online pneumothorax calculator. Large bilateral pleural effusions, bilateral pulmonary interstitial infiltrates persist, unchanged. Patient rotated RPO. Cardio mediastinal shift indeterminate. Cardio mediastinal silhouette otherwise stable. No new abnormality identified. IMPRESSION: Mildly increased in large left pneumothorax from one day prior, though probably unchanged from 11/18/16 immediately postthoracentesis, suspect persistent trapped. Tension component indeterminate but unlikely. Stable bilateral congestive changes
--- NOTE | 2016-11-25 10:25 | General Progress Note ---
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 Dc planning Subjective ROS Limited/Unobtainable: Yes Allergies: Coded Allergies: PIPERACILLIN (Verified Allergy, Unknown, 11/18/16) TAZOBACTAM (Verified Allergy, Unknown, 11/18/16) Objective Last 24 Hour Vital Signs Date Time Temp Pulse Resp B/P Pulse Ox O2 Delivery O2 Flow Rate FiO2 11/25/16 08:48 101 14 30 11/25/16 08:00 30 11/25/16 08:00 97.7 100 14 138/76 98 Mechanical Ventilator 30 11/25/16 08:00 100 11/25/16 07:12 98 14 30 11/25/16 05:14 119/80 11/25/16 05:14 101 119/80 11/25/16 04:58 101 14 30 11/25/16 04:00 30 11/25/16 04:00 98.0 100 14 119/80 99 Mechanical Ventilator 30 11/25/16 04:00 92 11/25/16 02:52 99 14 30 11/25/16 01:20 97 13 30 11/25/16 00:07 98 11/25/16 00:00 30 11/24/16 23:34 128/75 11/24/16 23:32 97.7 90 14 128/75 99 Mechanical Ventilator 30 11/24/16 23:07 86 14 30 11/24/16 21:15 84 14 30 11/24/16 21:01 91 130/70 11/24/16 20:00 30 11/24/16 20:00 98.5 91 14 130/70 98 Mechanical Ventilator 30 11/24/16 20:00 76 11/24/16 19:29 89 14 30 11/24/16 18:18 149/61 11/24/16 17:19 83 14 30 11/24/16 16:20 76 11/24/16 16:20 30 11/24/16 16:00 97.2 78 14 149/61 98 Mechanical Ventilator 30 11/24/16 15:05 80 14 30 11/24/16 14:53 88 159/79 11/24/16 12:45 85 14 30 11/24/16 12:03 159/79 11/24/16 11:50 97.5 88 16 159/79 99 Mechanical Ventilator 30 11/24/16 11:28 85 11/24/16 11:28 30 11/24/16 10:58 85 14 30 Intake and Output 11/24/16 11/25/16 19:00 07:00 Intake Total 560 ml 460 ml Output Total 400 ml 425 ml Balance 160 ml 35 ml Free Water 200 ml 130 ml Tube Feeding 360 ml 330 ml Output Urine Total 400 ml 425 ml # Bowel Movements 1 Laboratory Tests 11/25/16 03:20: White Blood Count 10.2, Red Blood Count 3.81L, Hemoglobin 9.5L, Hematocrit 30.9L , Mean Corpuscular Volume 81, Mean Corpuscular Hemoglobin 24.8L, Mean Corpuscular Hemoglobin Concent 30.6L, Red Cell Distribution Width 17.3H, Platelet Count 665H, Mean Platelet Volume 6.3L, Neutrophils (%) (Auto) 67.9, Lymphocytes (%) (Auto) 12.9L, Monocytes (%) (Auto) 15.7H, Eosinophils (%) (Auto ) 2.9, Basophils (%) (Auto) 0.6, Sodium Level 143, Potassium Level 3.9, Chloride Level 104, Carbon Dioxide Level 23, Anion Gap 16H, Blood Urea Nitrogen 91H, Creatinine 1.1, Estimat Glomerular Filtration Rate , Glucose Level 122H, Calcium Level 9.5, Total Bilirubin 0.4, Aspartate Amino Transf (AST/SGOT) 36, Alanine Aminotransferase (ALT/SGPT) 27, Alkaline Phosphatase 339H, Pro-B-Type Natriuretic Peptide 8222H, Total Protein 6.1L, Albumin 2.1L, Globulin 4.0, Albumin/Globulin Ratio 0.5L Height (Feet): 5 Height (Inches): 8.00 Weight (Pounds): 193 General Appearance: no apparent distress Objective other PE not changed SUNITA MITCHELL Nov 25, 2016 10:25
--- NOTE | 2016-11-25 10:51 | Diagnostic Imaging Report ---
Indication: DYSPNEA Technique: One view of the chest Comparison: 11/23/2016 Findings: Left-sided hydropneumothorax remains unchanged. There is persistent pleural fluid and probable opacification of the right. Tracheostomy remains. Heart size is difficult to assess, probably normal. Impression: Unchanged, over one day, findings as above. Ex vacuo post thoracentesis left pneumothorax with partial reaccumulation of pleural fluid remains stable
--- NOTE | 2016-11-25 10:53 | Diagnostic Imaging Report ---
Indication: Abdominal pain, cholelithiasis on prior ultrasound Technique: IV administration 5.3 mCi 99M technetium Choletec. Images obtained over the abdomen for 90 minutes Comparison: None Findings: Prompt tracer accumulation within the liver. Accumulation within the liver appear somewhat faint. Uncertain as to whether this is due to suboptimal windowing or real finding. Extrahepatic bile ducts are seen by 7 minutes. Gallbladder begins to fill at 13 minutes. Tracer seen within the duodenum at 31 minutes. Impression: Negative for evidence of cystic duct obstruction or common bile duct obstruction Apparent sub-normal hepatic tracer uptake. Suspect artifactual, but if real could indicate hepatocellular disease. Correlate with liver function tests
--- NOTE | 2016-11-25 11:20 | Pulmonology Progress Note ---
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 Subjective ROS Limited/Unobtainable: Yes Allergies: Coded Allergies: PIPERACILLIN (Verified Allergy, Unknown, 11/18/16) TAZOBACTAM (Verified Allergy, Unknown, 11/18/16) Objective Last 24 Hour Vital Signs Date Time Temp Pulse Resp B/P Pulse Ox O2 Delivery O2 Flow Rate FiO2 11/25/16 08:48 101 14 30 11/25/16 08:00 30 11/25/16 08:00 97.7 100 14 138/76 98 Mechanical Ventilator 30 11/25/16 08:00 100 11/25/16 07:12 98 14 30 11/25/16 05:14 119/80 11/25/16 05:14 101 119/80 11/25/16 04:58 101 14 30 11/25/16 04:00 30 11/25/16 04:00 98.0 100 14 119/80 99 Mechanical Ventilator 30 11/25/16 04:00 92 11/25/16 02:52 99 14 30 11/25/16 01:20 97 13 30 11/25/16 00:07 98 11/25/16 00:00 30 11/24/16 23:34 128/75 11/24/16 23:32 97.7 90 14 128/75 99 Mechanical Ventilator 30 11/24/16 23:07 86 14 30 11/24/16 21:15 84 14 30 11/24/16 21:01 91 130/70 11/24/16 20:00 30 11/24/16 20:00 98.5 91 14 130/70 98 Mechanical Ventilator 30 11/24/16 20:00 76 11/24/16 19:29 89 14 30 11/24/16 18:18 149/61 11/24/16 17:19 83 14 30 11/24/16 16:20 76 11/24/16 16:20 30 11/24/16 16:00 97.2 78 14 149/61 98 Mechanical Ventilator 30 11/24/16 15:05 80 14 30 11/24/16 14:53 88 159/79 11/24/16 12:45 85 14 30 11/24/16 12:03 159/79 11/24/16 11:50 97.5 88 16 159/79 99 Mechanical Ventilator 30 11/24/16 11:28 85 11/24/16 11:28 30 Intake and Output 11/24/16 11/25/16 19:00 07:00 Intake Total 560 ml 490 ml Output Total 400 ml 425 ml Balance 160 ml 65 ml Free Water 200 ml 130 ml Tube Feeding 360 ml 360 ml Output Urine Total 400 ml 425 ml # Bowel Movements 1 Objective General Appearance: cachetic HEENT: normocephalic, atraumatic Respiratory/Chest: chest wall non-tender, lungs clear Cardiovascular: normal peripheral pulses, normal rate Abdomen: soft, non tender Genitourinary: normal external genitalia Extremities: no cyanosis Skin: no rash, no lesions Laboratory Tests 11/25/16 03:20: White Blood Count 10.2, Red Blood Count 3.81L, Hemoglobin 9.5L, Hematocrit 30.9L , Mean Corpuscular Volume 81, Mean Corpuscular Hemoglobin 24.8L, Mean Corpuscular Hemoglobin Concent 30.6L, Red Cell Distribution Width 17.3H, Platelet Count 665H, Mean Platelet Volume 6.3L, Neutrophils (%) (Auto) 67.9, Lymphocytes (%) (Auto) 12.9L, Monocytes (%) (Auto) 15.7H, Eosinophils (%) (Auto ) 2.9, Basophils (%) (Auto) 0.6, Sodium Level 143, Potassium Level 3.9, Chloride Level 104, Carbon Dioxide Level 23, Anion Gap 16H, Blood Urea Nitrogen 91H, Creatinine 1.1, Estimat Glomerular Filtration Rate , Glucose Level 122H, Calcium Level 9.5, Total Bilirubin 0.4, Aspartate Amino Transf (AST/SGOT) 36, Alanine Aminotransferase (ALT/SGPT) 27, Alkaline Phosphatase 339H, Pro-B-Type Natriuretic Peptide 8222H, Total Protein 6.1L, Albumin 2.1L, Globulin 4.0, Albumin/Globulin Ratio 0.5L Current Medications Medications (Trade) Dose Ordered Sig/Jose Luis Route PRN Reason Start Time Stop Time Status Last Admin Dose Admin Acetaminophen (Tylenol) 650 mg Q4H PRN ORAL FEVER 11/18/16 09:45 12/18/16 09:44 Artificial Tears (Akwa-Tears) 2 drop BID BOTH EYES 11/25/16 09:00 12/25/16 08:59 11/25/16 09:25 Dextrose (Dextrose 50%) STAT PRN IV Hypoglycemia 11/18/16 09:45 12/18/16 09:44 Heparin Sodium (Porcine) (Heparin 5000 units/ml) 5,000 units EVERY 12 HOURS SUBQ 11/18/16 21:00 12/18/16 20:59 11/25/16 09:26 Hydralazine HCl (Apresoline) 25 mg Q6HR GT 11/23/16 12:00 12/23/16 11:59 11/25/16 05:14 Lansoprazole (Prevacid) 30 mg Q12HR GT 11/20/16 21:00 12/20/16 20:59 11/25/16 09:25 Methimazole (Tapazole) 7.5 mg DAILY GT 11/18/16 12:00 12/18/16 11:59 11/25/16 09:25 Ondansetron HCl (Zofran) 4 mg Q6H PRN IVP Nausea & Vomiting 11/18/16 09:45 12/18/16 09:44 Polyethylene Glycol (Miralax) 17 gm DAILYPRN PRN ORAL Constipation 11/18/16 09:45 12/18/16 09:44 Propranolol HCl (Inderal) 20 mg Q8HR GT 11/25/16 14:00 12/25/16 13:59 Tamsulosin HCl (Flomax) 0.4 mg BEDTIME GT 11/18/16 21:00 12/18/16 20:59 11/24/16 20:45 TRACI HAILE Nov 25, 2016 11:20
[2016-11-25 12:00] VITALS: BP 116/83
--- NOTE | 2016-11-25 12:29 | Infectious Diseases Prog Note ---
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 Tension component indeterminate but unlikely. Bilateral pleural effusion, SP tap , no evid of empyema, Cx NGTD Elevated alkaline phosphatase, rule out biliary disease/obstruction - HIDA pending Ultrasound of the abdomen : Cholelithiasis with some thickening of the wall of the gallbladder. Cholecystitis not excluded. Leukocytosis SP Sepsis SP Afebrile HIDA: Neg Acute RLE popliteal vein DVT Chronic VDRF SP trach, PEG Chronic encephalopathy Seizure disorder History of myocardial infarction Anemia Diabetes Zosyn allergy Full Code PLAN: monitor pt off of AB Rx 11/23 SP IV vancomycin, Levaquin, and Azactam d# 5 Monitor CBC Monitor BMP Monitor liver function tests vent support, trach care, aspiration precautions Subjective Constitutional: Denies: anorexia, chills, drenching sweats, fatigue, fever, no symptoms, other Allergies: Coded Allergies: PIPERACILLIN (Verified Allergy, Unknown, 11/18/16) TAZOBACTAM (Verified Allergy, Unknown, 11/18/16) Subjective afebrile Objective Vital Signs Last 24 Hour Vital Signs Date Time Temp Pulse Resp B/P Pulse Ox O2 Delivery O2 Flow Rate FiO2 11/25/16 12:00 30 11/25/16 10:30 103 14 30 11/25/16 08:48 101 14 30 11/25/16 08:00 30 11/25/16 08:00 97.7 100 14 138/76 98 Mechanical Ventilator 30 11/25/16 08:00 100 11/25/16 07:12 98 14 30 11/25/16 05:14 119/80 11/25/16 05:14 101 119/80 11/25/16 04:58 101 14 30 11/25/16 04:00 30 11/25/16 04:00 98.0 100 14 119/80 99 Mechanical Ventilator 30 11/25/16 04:00 92 11/25/16 02:52 99 14 30 11/25/16 01:20 97 13 30 11/25/16 00:07 98 11/25/16 00:00 30 11/24/16 23:34 128/75 11/24/16 23:32 97.7 90 14 128/75 99 Mechanical Ventilator 30 11/24/16 23:07 86 14 30 11/24/16 21:15 84 14 30 11/24/16 21:01 91 130/70 11/24/16 20:00 30 11/24/16 20:00 98.5 91 14 130/70 98 Mechanical Ventilator 30 11/24/16 20:00 76 11/24/16 19:29 89 14 30 11/24/16 18:18 149/61 11/24/16 17:19 83 14 30 11/24/16 16:20 76 11/24/16 16:20 30 11/24/16 16:00 97.2 78 14 149/61 98 Mechanical Ventilator 30 11/24/16 15:05 80 14 30 11/24/16 14:53 88 159/79 11/24/16 12:45 85 14 30 Height (Feet): 5 Height (Inches): 8.00 Weight (Pounds): 193 HEENT: anicteric Respiratory/Chest: normal breath sounds Cardiovascular: normal rate Abdomen: no organomegaly Laboratory Tests Test 11/25/16 03:20 White Blood Count 10.2 K/UL (4.8-10.8) Red Blood Count 3.81 M/UL (4.70-6.10) L Hemoglobin 9.5 G/DL (14.2-18.0) L Hematocrit 30.9 % (42.0-52.0) L Mean Corpuscular Volume 81 FL (80-99) Mean Corpuscular Hemoglobin 24.8 PG (27.0-31.0) L Mean Corpuscular Hemoglobin Concent 30.6 G/DL (32.0-36.0) L Red Cell Distribution Width 17.3 % (11.6-14.8) H Platelet Count 665 K/UL (150-450) H Mean Platelet Volume 6.3 FL (6.5-10.1) L Neutrophils (%) (Auto) 67.9 % (45.0-75.0) Lymphocytes (%) (Auto) 12.9 % (20.0-45.0) L Monocytes (%) (Auto) 15.7 % (1.0-10.0) H Eosinophils (%) (Auto) 2.9 % (0.0-3.0) Basophils (%) (Auto) 0.6 % (0.0-2.0) Sodium Level 143 mEQ/L (135-145) Potassium Level 3.9 mEQ/L (3.4-4.9) Chloride Level 104 mEQ/L (98-107) Carbon Dioxide Level 23 mEQ/L (20-30) Anion Gap 16 (5-15) H Blood Urea Nitrogen 91 mg/dL (7-23) H Creatinine 1.1 mg/dL (0.7-1.2) Estimat Glomerular Filtration Rate mL/min (>60) Glucose Level 122 mg/dL (74-106) H Calcium Level 9.5 mg/dL (8.6-10.2) Total Bilirubin 0.4 mg/dL (0.0-1.2) Aspartate Amino Transf (AST/SGOT) 36 U/L (5-40) Alanine Aminotransferase (ALT/SGPT) 27 U/L (3-41) Alkaline Phosphatase 339 U/L (40-129) H Pro-B-Type Natriuretic Peptide 8222 pg/mL (0-450) H Total Protein 6.1 g/dL (6.6-8.7) L Albumin 2.1 g/dL (3.5-5.2) L Globulin 4.0 g/dL Albumin/Globulin Ratio 0.5 (1.0-2.7) L Current Medications Medications (Trade) Dose Ordered Sig/Jose Luis Route PRN Reason Start Time Stop Time Status Last Admin Dose Admin Acetaminophen (Tylenol) 650 mg Q4H PRN ORAL FEVER 11/18/16 09:45 12/18/16 09:44 Artificial Tears (Akwa-Tears) 2 drop BID BOTH EYES 11/25/16 09:00 12/25/16 08:59 11/25/16 09:25 Dextrose (Dextrose 50%) STAT PRN IV Hypoglycemia 11/18/16 09:45 12/18/16 09:44 Heparin Sodium (Porcine) (Heparin 5000 units/ml) 5,000 units EVERY 12 HOURS SUBQ 11/18/16 21:00 12/18/16 20:59 11/25/16 09:26 Hydralazine HCl (Apresoline) 25 mg Q6HR GT 11/23/16 12:00 12/23/16 11:59 11/25/16 05:14 Lansoprazole (Prevacid) 30 mg Q12HR GT 11/20/16 21:00 12/20/16 20:59 11/25/16 09:25 Methimazole (Tapazole) 7.5 mg DAILY GT 11/18/16 12:00 12/18/16 11:59 11/25/16 09:25 Ondansetron HCl (Zofran) 4 mg Q6H PRN IVP Nausea & Vomiting 11/18/16 09:45 12/18/16 09:44 Polyethylene Glycol (Miralax) 17 gm DAILYPRN PRN ORAL Constipation 11/18/16 09:45 12/18/16 09:44 Propranolol HCl (Inderal) 20 mg Q8HR GT 11/25/16 14:00 12/25/16 13:59 Tamsulosin HCl (Flomax) 0.4 mg BEDTIME GT 11/18/16 21:00 12/18/16 20:59 11/24/16 20:45 SHIV CARDOZA M.D. Nov 25, 2016 12:29
[2016-11-25 16:00] VITALS: BP 120/76
[2016-11-25 20:00] VITALS: BP 112/62
[2016-11-25] MEDS: Tamsulosin 0.4mg cap GT SCH (20:36)
[2016-11-26] VITALS: BP 145/75
[2016-11-26] MEDS: HydrALAZINE 25mg tab GT SCH ×4 (00:04→17:23)
[2016-11-26 04:00] VITALS: BP 128/67
[2016-11-26] MEDS: Propranolol 10mg tab GT SCH ×3 (05:06→21:48)
[2016-11-26 05:39] LABS: BASOPHILS % (AUTO) 0.4 % (0.0-2.0); EOSINOPHILS % (AUTO) 1.9 % (0.0-3.0); LYMPHOCYTES % (AUTO) 11.2 % (20.0-45.0); MEAN CORPUSCULAR HEMOGLOBIN 25.4 PG (27.0-31.0); MEAN CORPUSCULAR HGB CONC 30.9 G/DL (32.0-36.0); MEAN CORPUSCULAR VOLUME 82 FL (80-99); MEAN PLATELET VOLUME 6.3 FL (6.5-10.1); MONOCYTES % (AUTO) 17.2 % (1.0-10.0); NEUTROPHILS % (AUTO) 69.4 % (45.0-75.0); PLATELET COUNT 599 K/UL (150-450); RED BLOOD COUNT 3.57 M/UL (4.70-6.10); RED CELL DISTRIBUTION WIDTH 17.4 % (11.6-14.8); WHITE BLOOD COUNT 11.7 K/UL (4.8-10.8)
[2016-11-26 06:16] LABS: ALANINE AMINOTRANSFERASE 27 U/L (3-41); ALBUMIN/GLOBULIN RATIO 0.5 (1.0-2.7); ANION GAP 18 (5-15); ASPARTATE AMINO TRANSFERASE 38 U/L (5-40); CALCIUM 9.3 mg/dL (8.6-10.2); CARBON DIOXIDE 23 mEQ/L (20-30); CHLORIDE 103 mEQ/L (98-107); CREATININE 1.2 mg/dL (0.7-1.2); HEMOLYSIS 20; POTASSIUM 4.3 mEQ/L (3.4-4.9); SODIUM 144 mEQ/L (135-145); TOTAL PROTEIN 6.2 g/dL (6.6-8.7)
[2016-11-26 07:49] VITALS: BP 107/55
[2016-11-26] MEDS: Methimazole 5mg tab GT SCH (08:47)
[2016-11-26] MEDS: Heparin 5000 units/ml inj SUBQ SCH ×2 (08:47→21:49)
[2016-11-26] MEDS: Artificial Tears 1.4% Op Soln BOTH EYES SCH ×2 (09:45→17:23)
--- NOTE | 2016-11-26 10:45 | General Progress Note ---
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 Dc planning- Disposition issues ! Subjective ROS Limited/Unobtainable: Yes Allergies: Coded Allergies: PIPERACILLIN (Verified Allergy, Unknown, 11/18/16) TAZOBACTAM (Verified Allergy, Unknown, 11/18/16) Objective Last 24 Hour Vital Signs Date Time Temp Pulse Resp B/P Pulse Ox O2 Delivery O2 Flow Rate FiO2 11/26/16 09:04 58 14 30 11/26/16 08:00 73 11/26/16 07:50 30 11/26/16 07:49 97.7 74 15 107/55 99 Mechanical Ventilator 30 11/26/16 06:45 55 14 30 11/26/16 05:06 87 128/67 11/26/16 05:06 128/67 11/26/16 04:54 87 14 30 11/26/16 04:00 97.7 73 14 128/67 99 Mechanical Ventilator 30 11/26/16 04:00 87 11/26/16 04:00 30 11/26/16 02:37 62 14 30 11/26/16 01:29 57 14 30 11/26/16 00:04 145/72 11/26/16 00:00 30 11/26/16 00:00 97.9 73 14 145/75 98 Mechanical Ventilator 11/26/16 00:00 73 11/25/16 22:53 69 14 30 11/25/16 21:55 71 122/73 11/25/16 21:12 65 14 30 11/25/16 20:00 30 11/25/16 20:00 73 11/25/16 20:00 98.2 73 14 112/62 99 Mechanical Ventilator 30 11/25/16 19:05 69 14 30 11/25/16 17:46 120/76 11/25/16 16:42 66 14 30 11/25/16 16:00 30 11/25/16 16:00 73 11/25/16 16:00 97.6 73 14 120/76 99 Mechanical Ventilator 30 11/25/16 16:00 30 11/25/16 14:42 100 14 30 11/25/16 14:37 103 115/83 11/25/16 12:59 103 14 30 11/25/16 12:31 115/83 11/25/16 12:00 30 11/25/16 12:00 97.6 104 14 116/83 98 Mechanical Ventilator 30 11/25/16 12:00 104 Intake and Output 11/25/16 11/26/16 19:00 07:00 Intake Total 630 ml 430 ml Output Total 300 ml 250 ml Balance 330 ml 180 ml Free Water 100 ml 100 ml Tube Feeding 480 ml 330 ml Other 50 ml Output Urine Total 300 ml 250 ml # Bowel Movements 1 Laboratory Tests 11/26/16 03:40: White Blood Count 11.7H, Red Blood Count 3.57L, Hemoglobin 9.1L, Hematocrit 29.4L, Mean Corpuscular Volume 82, Mean Corpuscular Hemoglobin 25.4L, Mean Corpuscular Hemoglobin Concent 30.9L, Red Cell Distribution Width 17.4H, Platelet Count 599H, Mean Platelet Volume 6.3L, Neutrophils (%) (Auto) 69.4, Lymphocytes (%) (Auto) 11.2L, Monocytes (%) (Auto) 17.2H, Eosinophils (%) (Auto ) 1.9, Basophils (%) (Auto) 0.4, Sodium Level 144, Potassium Level 4.3, Chloride Level 103, Carbon Dioxide Level 23, Anion Gap 18H, Blood Urea Nitrogen 92H, Creatinine 1.2, Estimat Glomerular Filtration Rate , Glucose Level 123H, Calcium Level 9.3, Total Bilirubin 0.4, Aspartate Amino Transf (AST/SGOT) 38, Alanine Aminotransferase (ALT/SGPT) 27, Alkaline Phosphatase 349H, Pro-B-Type Natriuretic Peptide 84639E, Total Protein 6.2L, Albumin 2.2L, Globulin 4.0, Albumin/Globulin Ratio 0.5L Height (Feet): 5 Height (Inches): 8.00 Weight (Pounds): 192 General Appearance: no apparent distress Objective other PE not changed SUNITA MITCHELL Nov 26, 2016 10:45
--- NOTE | 2016-11-26 10:55 | Diagnostic Imaging Report ---
Indication: DYSPNEA Technique: One view of the chest Comparison: 11/25/2016 Findings: Interim increase in right pulmonary opacity likely reflects increased pleural fluid. There may be increased underlying parenchymal opacity as well. There is apparent decrease in size of previously demonstrated left pneumothorax, although this may be attributable to differences in rotation. Left-sided pleural effusion is probably unchanged. Tracheostomy remains Impression: Stable or perhaps somewhat improved left-sided ex vacuo post thoracentesis pneumothorax, over one day. Pleural fluid on the left is probably unchanged Increased opacification of right hemithorax. Suspect on the basis of increased pleural fluid, could indicate also increased parenchymal consolidation or edema
--- NOTE | 2016-11-26 11:20 | Pulmonology Progress Note ---
Assessment/Plan Problems: (1) Acute and chronic respiratory failure (2) Pneumothorax (3) ATN (acute tubular necrosis) (4) Bilateral pleural effusion (5) Anemia (6) Feeding by G-tube Respiratory: monitor respiratory rate, adjust FIO2 Cardiac: continue to monitor HR/BP Renal: F/U I&O, keep IV fluid Infectious Disease: check cultures, continue antibiotics Gastrointestinal: continue feedings/current rate, hold feedings Endocrine: check TSH, check HgA1C, continue sliding scale insulin Hematologic: monitor H/H, transfuse if hgb<8.5 Neurologic: PRN Ativan, PRN Morphine, keep patient comfortable Affect: PRN ativan 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, 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, 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, 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 Subjective ROS Limited/Unobtainable: Yes Allergies: Coded Allergies: PIPERACILLIN (Verified Allergy, Unknown, 11/18/16) TAZOBACTAM (Verified Allergy, Unknown, 11/18/16) Objective Last 24 Hour Vital Signs Date Time Temp Pulse Resp B/P Pulse Ox O2 Delivery O2 Flow Rate FiO2 11/26/16 09:04 58 14 30 11/26/16 08:00 73 11/26/16 07:50 30 11/26/16 07:49 97.7 74 15 107/55 99 Mechanical Ventilator 30 11/26/16 06:45 55 14 30 11/26/16 05:06 87 128/67 11/26/16 05:06 128/67 11/26/16 04:54 87 14 30 11/26/16 04:00 97.7 73 14 128/67 99 Mechanical Ventilator 30 11/26/16 04:00 87 11/26/16 04:00 30 11/26/16 02:37 62 14 30 11/26/16 01:29 57 14 30 11/26/16 00:04 145/72 11/26/16 00:00 30 11/26/16 00:00 97.9 73 14 145/75 98 Mechanical Ventilator 30 11/26/16 00:00 73 11/25/16 22:53 69 14 30 11/25/16 21:55 71 122/73 11/25/16 21:12 65 14 30 11/25/16 20:00 30 11/25/16 20:00 73 11/25/16 20:00 98.2 73 14 112/62 99 Mechanical Ventilator 30 11/25/16 19:05 69 14 30 11/25/16 17:46 120/76 11/25/16 16:42 66 14 30 11/25/16 16:00 30 11/25/16 16:00 73 11/25/16 16:00 97.6 73 14 120/76 99 Mechanical Ventilator 30 11/25/16 16:00 30 11/25/16 14:42 100 14 30 11/25/16 14:37 103 115/83 11/25/16 12:59 103 14 30 11/25/16 12:31 115/83 11/25/16 12:00 30 11/25/16 12:00 97.6 104 14 116/83 98 Mechanical Ventilator 30 11/25/16 12:00 104 Intake and Output 11/25/16 11/26/16 18:59 06:59 Intake Total 630 ml 460 ml Output Total 300 ml 250 ml Balance 330 ml 210 ml Free Water 100 ml 100 ml Tube Feeding 480 ml 360 ml Other 50 ml Output Urine Total 300 ml 250 ml # Bowel Movements 1 Objective General Appearance: cachetic HEENT: normocephalic, atraumatic Respiratory/Chest: chest wall non-tender, lungs clear Cardiovascular: normal peripheral pulses, normal rate Abdomen: soft, non tender Genitourinary: normal external genitalia Extremities: no cyanosis Skin: no rash, no lesions Laboratory Tests 11/26/16 03:40: White Blood Count 11.7H, Red Blood Count 3.57L, Hemoglobin 9.1L, Hematocrit 29.4L, Mean Corpuscular Volume 82, Mean Corpuscular Hemoglobin 25.4L, Mean Corpuscular Hemoglobin Concent 30.9L, Red Cell Distribution Width 17.4H, Platelet Count 599H, Mean Platelet Volume 6.3L, Neutrophils (%) (Auto) 69.4, Lymphocytes (%) (Auto) 11.2L, Monocytes (%) (Auto) 17.2H, Eosinophils (%) (Auto ) 1.9, Basophils (%) (Auto) 0.4, Sodium Level 144, Potassium Level 4.3, Chloride Level 103, Carbon Dioxide Level 23, Anion Gap 18H, Blood Urea Nitrogen 92H, Creatinine 1.2, Estimat Glomerular Filtration Rate , Glucose Level 123H, Calcium Level 9.3, Total Bilirubin 0.4, Aspartate Amino Transf (AST/SGOT) 38, Alanine Aminotransferase (ALT/SGPT) 27, Alkaline Phosphatase 349H, Pro-B-Type Natriuretic Peptide 82001O, Total Protein 6.2L, Albumin 2.2L, Globulin 4.0, Albumin/Globulin Ratio 0.5L Current Medications Medications (Trade) Dose Ordered Sig/Jose Luis Route PRN Reason Start Time Stop Time Status Last Admin Dose Admin Acetaminophen (Tylenol) 650 mg Q4H PRN ORAL FEVER 11/18/16 09:45 12/18/16 09:44 Artificial Tears (Akwa-Tears) 2 drop BID BOTH EYES 11/25/16 09:00 12/25/16 08:59 11/26/16 09:45 Dextrose (Dextrose 50%) STAT PRN IV Hypoglycemia 11/18/16 09:45 12/18/16 09:44 Heparin Sodium (Porcine) (Heparin 5000 units/ml) 5,000 units EVERY 12 HOURS SUBQ 11/18/16 21:00 12/18/16 20:59 11/26/16 08:47 Hydralazine HCl (Apresoline) 25 mg Q6HR GT 11/23/16 12:00 12/23/16 11:59 11/26/16 05:06 Lansoprazole (Prevacid) 30 mg Q12HR GT 11/20/16 21:00 12/20/16 20:59 11/26/16 08:46 Methimazole (Tapazole) 7.5 mg DAILY GT 11/18/16 12:00 12/18/16 11:59 11/26/16 08:47 Ondansetron HCl (Zofran) 4 mg Q6H PRN IVP Nausea & Vomiting 11/18/16 09:45 12/18/16 09:44 Polyethylene Glycol (Miralax) 17 gm DAILYPRN PRN ORAL Constipation 11/18/16 09:45 12/18/16 09:44 Propranolol HCl (Inderal) 20 mg Q8HR GT 11/25/16 14:00 12/25/16 13:59 11/26/16 05:06 Tamsulosin HCl (Flomax) 0.4 mg BEDTIME GT 11/18/16 21:00 12/18/16 20:59 11/25/16 20:36 TRACI HAILE Nov 26, 2016 11:20
[2016-11-26 11:40] VITALS: BP 124/55
[2016-11-26 15:48] VITALS: BP 107/63
--- NOTE | 2016-11-26 18:48 | Cardiology Progress Note ---
Assessment/Plan Assessment/Plan 1. Chronic respiratory failure. 2. Sinus tachycardia, multifactorial, likely combination of hyperthyroidism inflammation. 3. Anemia. 4. Azotemia. 5. Pleural effusion. 6. Heart failure with preserved ejection fraction. 7. Hyperthyroidism. 8. Pneumothorax hr ok at this time on inderal is already on metamizole getting ivf already stool ob neg echo did not show any pericardial efffuiosn but pelural effusion cxr still shows ptxstill with increase drihg siede opacifiction tele sinus with occsion pac pvc Subjective ROS Limited/Unobtainable: Yes Subjective on the vent not communicative Objective Last 24 Hour Vital Signs Date Time Temp Pulse Resp B/P Pulse Ox O2 Delivery O2 Flow Rate FiO2 11/26/16 17:23 117/52 11/26/16 16:50 62 14 30 11/26/16 16:00 70 11/26/16 16:00 30 11/26/16 15:48 97.7 67 14 107/63 99 Mechanical Ventilator 30 11/26/16 14:58 75 14 30 11/26/16 14:47 77 110/62 11/26/16 13:00 80 14 30 11/26/16 12:00 79 11/26/16 11:58 30 11/26/16 11:55 124/55 11/26/16 11:40 97.8 81 14 124/55 99 Mechanical Ventilator 11/26/16 11:10 62 14 30 11/26/16 09:04 58 14 30 11/26/16 08:00 73 11/26/16 07:50 30 11/26/16 07:49 97.7 74 15 107/55 99 Mechanical Ventilator 30 11/26/16 06:45 55 14 30 11/26/16 05:06 87 128/67 11/26/16 05:06 128/67 11/26/16 04:54 87 14 30 11/26/16 04:00 97.7 73 14 128/67 99 Mechanical Ventilator 30 11/26/16 04:00 87 11/26/16 04:00 30 11/26/16 02:37 62 14 30 11/26/16 01:29 57 14 30 11/26/16 00:04 145/72 11/26/16 00:00 30 11/26/16 00:00 97.9 73 14 145/75 98 Mechanical Ventilator 30 11/26/16 00:00 73 11/25/16 22:53 69 14 30 11/25/16 21:55 71 122/73 11/25/16 21:12 65 14 30 11/25/16 20:00 30 11/25/16 20:00 73 11/25/16 20:00 98.2 73 14 112/62 99 Mechanical Ventilator 30 11/25/16 19:05 69 14 30 General Appearance: on vent, patient on isolation Neck: supple Cardiovascular: normal rate, regular rhythm Respiratory/Chest: rhonchi - bilaterally Abdomen: normal bowel sounds, non tender, soft Extremities: trace edema Intake and Output 11/25/16 11/26/16 19:00 07:00 Intake Total 630 ml 460 ml Output Total 300 ml 250 ml Balance 330 ml 210 ml Free Water 100 ml 100 ml Tube Feeding 480 ml 360 ml Other 50 ml Output Urine Total 300 ml 250 ml # Bowel Movements 1 Laboratory Tests Test 11/26/16 03:40 White Blood Count 11.7 K/UL (4.8-10.8) H Red Blood Count 3.57 M/UL (4.70-6.10) L Hemoglobin 9.1 G/DL (14.2-18.0) L Hematocrit 29.4 % (42.0-52.0) L Mean Corpuscular Volume 82 FL (80-99) Mean Corpuscular Hemoglobin 25.4 PG (27.0-31.0) L Mean Corpuscular Hemoglobin Concent 30.9 G/DL (32.0-36.0) L Red Cell Distribution Width 17.4 % (11.6-14.8) H Platelet Count 599 K/UL (150-450) H Mean Platelet Volume 6.3 FL (6.5-10.1) L Neutrophils (%) (Auto) 69.4 % (45.0-75.0) Lymphocytes (%) (Auto) 11.2 % (20.0-45.0) L Monocytes (%) (Auto) 17.2 % (1.0-10.0) H Eosinophils (%) (Auto) 1.9 % (0.0-3.0) Basophils (%) (Auto) 0.4 % (0.0-2.0) Sodium Level 144 mEQ/L (135-145) Potassium Level 4.3 mEQ/L (3.4-4.9) Chloride Level 103 mEQ/L (98-107) Carbon Dioxide Level 23 mEQ/L (20-30) Anion Gap 18 (5-15) H Blood Urea Nitrogen 92 mg/dL (7-23) H Creatinine 1.2 mg/dL (0.7-1.2) Estimat Glomerular Filtration Rate mL/min (>60) Glucose Level 123 mg/dL (74-106) H Calcium Level 9.3 mg/dL (8.6-10.2) Total Bilirubin 0.4 mg/dL (0.0-1.2) Aspartate Amino Transf (AST/SGOT) 38 U/L (5-40) Alanine Aminotransferase (ALT/SGPT) 27 U/L (3-41) Alkaline Phosphatase 349 U/L (40-129) H Pro-B-Type Natriuretic Peptide 77880 pg/mL (0-450) H Total Protein 6.2 g/dL (6.6-8.7) L Albumin 2.2 g/dL (3.5-5.2) L Globulin 4.0 g/dL Albumin/Globulin Ratio 0.5 (1.0-2.7) L JUILÁN ARANGO Nov 26, 2016 18:48
[2016-11-26 20:00] VITALS: BP 122/55
[2016-11-26] MEDS: Tamsulosin 0.4mg cap GT SCH (21:48)
--- NOTE | 2016-11-26 23:23 | Wound Care Consultation ---
Wound Assessment Wound Assessment #1: Wound Present on Admission: Yes New Wound: No Status Change of Wound: No Wound Location Body Site Modif: left Wound Location Body Site: trochanter Wound Type: pressure ulcer Chilo Test: Does not Chilo Pressure Ulcer Stage: deep tissue injury - revealed as stage II Wound Thickness: Partial Thickness Wound Length: 5.0 Wound Width: 5.0 Wound Depth: 0.1 Percent of Wound [place]/Red: 100 Wound Drainage Amount: None Wound Drainage Odor: None/Absent Tissue Surrounding Wound: Erythemic Wound General Appearance: Reddened Wound Assessment #2: Wound Number: #2 Wound Present on Admission: Yes New Wound: No Status Change of Wound: No Wound Location Body Site Modif: mid Wound Location Body Site: sacral Chilo Test: Does not Chilo Pressure Ulcer Stage: II - scattered stage II resolving pressure ulcers Wound Thickness: Partial Thickness Percent of Wound [place]/Red: 100 Wound Drainage Amount: None Wound Drainage Odor: None/Absent Tissue Surrounding Wound: Erythemic Wound General Appearance: Reddened Wound Comment #1 Sacral area scattered stage II pressure ulcers. Resolving and responding well to treatment at tis time #2 Left trochanter DTI pressure ulcer. Revealed as stage II. Good progress noted upon reassessment. Recommendation -Sacral stage II scattered pressure ulcers and left trochanter stage II pressure ulcer Cleanse with saline, pat dry, apply Triad cream, cover with bordered gauze daily and PRN soiled/dislodged -Turn and reposition -Keep clean and dry -Optimize nutrition -Offload both heels -Heel protector on both heels -Low air loss mattress -Assess and f/u accordingly for any changes MERCEDEZ EDDY RN, MESKEREM RN Nov 26, 2016 23:23
[2016-11-27] VITALS (7 sets, daily range): BP systolic 115–136; BP diastolic 52–74
[2016-11-27] MEDS: HydrALAZINE 25mg tab GT SCH ×4 (00:43→17:39)
[2016-11-27 05:51] LABS: ALANINE AMINOTRANSFERASE 24 U/L (3-41); ALBUMIN/GLOBULIN RATIO 0.4 (1.0-2.7); ANION GAP 19 (5-15); ASPARTATE AMINO TRANSFERASE 32 U/L (5-40); CALCIUM 9.4 mg/dL (8.6-10.2); CARBON DIOXIDE 22 mEQ/L (20-30); CHLORIDE 102 mEQ/L (98-107); CREATININE 1.2 mg/dL (0.7-1.2); HEMOLYSIS 7; POTASSIUM 4.3 mEQ/L (3.4-4.9); SODIUM 143 mEQ/L (135-145); TOTAL PROTEIN 6.2 g/dL (6.6-8.7)
[2016-11-27 06:14] LABS: BASOPHILS % (AUTO) 0.5 % (0.0-2.0); EOSINOPHILS % (AUTO) 2.8 % (0.0-3.0); MEAN CORPUSCULAR HEMOGLOBIN 25.8 PG (27.0-31.0); MEAN CORPUSCULAR HGB CONC 31.9 G/DL (32.0-36.0); MEAN CORPUSCULAR VOLUME 81 FL (80-99); MEAN PLATELET VOLUME 6.6 FL (6.5-10.1); MONOCYTES % (AUTO) 18.5 % (1.0-10.0); NEUTROPHILS % (AUTO) 65.2 % (45.0-75.0); PLATELET COUNT 534 K/UL (150-450); RED BLOOD COUNT 3.53 M/UL (4.70-6.10); RED CELL DISTRIBUTION WIDTH 17.6 % (11.6-14.8); WHITE BLOOD COUNT 11.5 K/UL (4.8-10.8)
[2016-11-27] MEDS: Propranolol 10mg tab GT SCH ×3 (06:40→21:29)
[2016-11-27] MEDS: Artificial Tears 1.4% Op Soln BOTH EYES SCH ×2 (08:04→17:38)
[2016-11-27] MEDS: Methimazole 5mg tab GT SCH (08:04)
[2016-11-27] MEDS: Heparin 5000 units/ml inj SUBQ SCH ×2 (08:05→20:39)
--- NOTE | 2016-11-27 08:36 | Diagnostic Imaging Report ---
Indications: DYSPNEA Technique: Portable AP chest Findings: Comparison: 11/26/16 Right pleural effusion, left hydropneumothorax persist, unchanged. Probable bilateral underlying interstitial infiltrates unchanged. Cardiac mediastinal silhouette stable. No new abnormality identified. IMPRESSION: No change from one day prior
--- NOTE | 2016-11-27 10:30 | Infectious Diseases Prog Note ---
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 Tension component indeterminate but unlikely. Bilateral pleural effusion, SP tap , no evid of empyema, Cx NGTD Elevated alkaline phosphatase, rule out biliary disease/obstruction - HIDA pending Ultrasound of the abdomen : Cholelithiasis with some thickening of the wall of the gallbladder. Cholecystitis not excluded. Leukocytosis , mild Sepsis SP Afebrile HIDA: Neg Acute RLE popliteal vein DVT Chronic VDRF SP trach, PEG Chronic encephalopathy Seizure disorder History of myocardial infarction Anemia Diabetes Zosyn allergy Full Code PLAN: monitor pt off of AB Rx 11/23 SP IV vancomycin, Levaquin, and Azactam d# 5 Monitor CBC Monitor BMP Monitor liver function tests vent support, trach care, aspiration precautions Subjective Constitutional: Denies: anorexia, chills, drenching sweats, fatigue, fever, no symptoms, other Allergies: Coded Allergies: PIPERACILLIN (Verified Allergy, Unknown, 11/18/16) TAZOBACTAM (Verified Allergy, Unknown, 11/18/16) Subjective afebrile Objective Vital Signs Last 24 Hour Vital Signs Date Time Temp Pulse Resp B/P Pulse Ox O2 Delivery O2 Flow Rate FiO2 11/27/16 08:46 57 14 30 11/27/16 08:00 72 11/27/16 08:00 97.7 71 14 115/52 99 Mechanical Ventilator 30 11/27/16 08:00 30 11/27/16 07:05 71 14 30 11/27/16 06:40 72 120/68 11/27/16 06:40 120/68 11/27/16 05:04 72 14 30 11/27/16 04:00 30 11/27/16 04:00 97.5 78 14 120/68 99 Mechanical Ventilator 30 11/27/16 04:00 73 11/27/16 02:58 55 14 30 11/27/16 01:11 61 14 30 11/27/16 00:43 119/51 11/27/16 00:00 30 11/27/16 00:00 70 11/27/16 00:00 98.6 74 14 119/74 Mechanical Ventilator 30 11/26/16 23:08 60 14 30 11/26/16 21:48 78 122/55 11/26/16 20:50 78 14 30 11/26/16 20:00 97.3 91 14 122/55 Mechanical Ventilator 30 11/26/16 20:00 30 11/26/16 20:00 74 11/26/16 19:16 75 14 30 11/26/16 17:23 117/52 11/26/16 16:50 62 14 30 11/26/16 16:00 70 11/26/16 16:00 30 11/26/16 15:48 97.7 67 14 107/63 99 Mechanical Ventilator 30 11/26/16 14:58 75 14 30 11/26/16 14:47 77 110/62 11/26/16 13:00 80 14 30 11/26/16 12:00 79 11/26/16 11:58 30 11/26/16 11:55 124/55 11/26/16 11:40 97.8 81 14 124/55 99 Mechanical Ventilator 30 11/26/16 11:10 62 14 30 Height (Feet): 5 Height (Inches): 8.00 Weight (Pounds): 192 HEENT: anicteric Respiratory/Chest: lungs clear Cardiovascular: normal rate Abdomen: no organomegaly Laboratory Tests Test 11/27/16 03:15 White Blood Count 11.5 K/UL (4.8-10.8) H Red Blood Count 3.53 M/UL (4.70-6.10) L Hemoglobin 9.1 G/DL (14.2-18.0) L Hematocrit 28.5 % (42.0-52.0) L Mean Corpuscular Volume 81 FL (80-99) Mean Corpuscular Hemoglobin 25.8 PG (27.0-31.0) L Mean Corpuscular Hemoglobin Concent 31.9 G/DL (32.0-36.0) L Red Cell Distribution Width 17.6 % (11.6-14.8) H Platelet Count 534 K/UL (150-450) H Mean Platelet Volume 6.6 FL (6.5-10.1) Neutrophils (%) (Auto) 65.2 % (45.0-75.0) Lymphocytes (%) (Auto) 13.0 % (20.0-45.0) L Monocytes (%) (Auto) 18.5 % (1.0-10.0) H Eosinophils (%) (Auto) 2.8 % (0.0-3.0) Basophils (%) (Auto) 0.5 % (0.0-2.0) Sodium Level 143 mEQ/L (135-145) Potassium Level 4.3 mEQ/L (3.4-4.9) Chloride Level 102 mEQ/L (98-107) Carbon Dioxide Level 22 mEQ/L (20-30) Anion Gap 19 (5-15) H Blood Urea Nitrogen 96 mg/dL (7-23) H Creatinine 1.2 mg/dL (0.7-1.2) Estimat Glomerular Filtration Rate mL/min (>60) Glucose Level 121 mg/dL (74-106) H Calcium Level 9.4 mg/dL (8.6-10.2) Total Bilirubin 0.4 mg/dL (0.0-1.2) Aspartate Amino Transf (AST/SGOT) 32 U/L (5-40) Alanine Aminotransferase (ALT/SGPT) 24 U/L (3-41) Alkaline Phosphatase 320 U/L (40-129) H Pro-B-Type Natriuretic Peptide 8749 pg/mL (0-450) H Total Protein 6.2 g/dL (6.6-8.7) L Albumin 2.0 g/dL (3.5-5.2) L Globulin 4.2 g/dL Albumin/Globulin Ratio 0.4 (1.0-2.7) L Current Medications Medications (Trade) Dose Ordered Sig/Jose Luis Route PRN Reason Start Time Stop Time Status Last Admin Dose Admin Acetaminophen (Tylenol) 650 mg Q4H PRN ORAL FEVER 11/18/16 09:45 12/18/16 09:44 Artificial Tears (Akwa-Tears) 2 drop BID BOTH EYES 11/25/16 09:00 12/25/16 08:59 11/27/16 08:04 Dextrose (Dextrose 50%) STAT PRN IV Hypoglycemia 11/18/16 09:45 12/18/16 09:44 Heparin Sodium (Porcine) (Heparin 5000 units/ml) 5,000 units EVERY 12 HOURS SUBQ 11/18/16 21:00 12/18/16 20:59 11/27/16 08:05 Hydralazine HCl (Apresoline) 25 mg Q6HR GT 11/23/16 12:00 12/23/16 11:59 11/27/16 00:43 Lansoprazole (Prevacid) 30 mg Q12HR GT 11/20/16 21:00 12/20/16 20:59 11/27/16 08:04 Methimazole (Tapazole) 7.5 mg DAILY GT 11/18/16 12:00 12/18/16 11:59 11/27/16 08:04 Ondansetron HCl (Zofran) 4 mg Q6H PRN IVP Nausea & Vomiting 11/18/16 09:45 12/18/16 09:44 Polyethylene Glycol (Miralax) 17 gm DAILYPRN PRN ORAL Constipation 11/18/16 09:45 12/18/16 09:44 Propranolol HCl (Inderal) 20 mg Q8HR GT 11/25/16 14:00 12/25/16 13:59 11/27/16 06:40 Tamsulosin HCl (Flomax) 0.4 mg BEDTIME GT 11/18/16 21:00 12/18/16 20:59 11/26/16 21:48 SHIV CARDOZA M.D. Nov 27, 2016 10:30
--- NOTE | 2016-11-27 12:11 | Pulmonology Progress Note ---
Assessment/Plan Problems: (1) Acute and chronic respiratory failure (2) Pneumothorax (3) ATN (acute tubular necrosis) (4) Bilateral pleural effusion (5) Anemia (6) Feeding by G-tube Respiratory: monitor respiratory rate, adjust FIO2 Cardiac: continue pressors, continue to monitor HR/BP Renal: F/U I&O, check electrolytes Infectious Disease: check cultures, continue antibiotics Gastrointestinal: continue feedings/current rate Endocrine: monitor blood sugar, check HgA1C, continue sliding scale insulin Hematologic: transfuse if hgb<8.5 Neurologic: PRN Morphine, keep patient comfortable Affect: PRN ativan 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, 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, 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 Subjective ROS Limited/Unobtainable: No Constitutional: Reports: no symptoms HEENT: Repors: no symptoms Respiratory: Reports: no symptoms Allergies: Coded Allergies: PIPERACILLIN (Verified Allergy, Unknown, 11/18/16) TAZOBACTAM (Verified Allergy, Unknown, 11/18/16) Objective Last 24 Hour Vital Signs Date Time Temp Pulse Resp B/P Pulse Ox O2 Delivery O2 Flow Rate FiO2 11/27/16 11:44 98.0 85 14 120/73 99 Mechanical Ventilator 30 11/27/16 11:43 120/73 11/27/16 10:36 82 14 30 11/27/16 08:46 57 14 30 11/27/16 08:00 72 11/27/16 08:00 97.7 71 14 115/52 99 Mechanical Ventilator 30 11/27/16 08:00 30 11/27/16 07:05 71 14 30 11/27/16 06:40 72 120/68 11/27/16 06:40 120/68 11/27/16 05:04 72 14 30 11/27/16 04:00 30 11/27/16 04:00 97.5 78 14 120/68 99 Mechanical Ventilator 30 11/27/16 04:00 73 11/27/16 02:58 55 14 30 11/27/16 01:11 61 14 30 11/27/16 00:43 119/51 11/27/16 00:00 30 11/27/16 00:00 70 11/27/16 00:00 98.6 74 14 119/74 Mechanical Ventilator 30 11/26/16 23:08 60 14 30 11/26/16 21:48 78 122/55 11/26/16 20:50 78 14 30 11/26/16 20:00 97.3 91 14 122/55 Mechanical Ventilator 30 11/26/16 20:00 30 11/26/16 20:00 74 11/26/16 19:16 75 14 30 11/26/16 17:23 117/52 11/26/16 16:50 62 14 30 11/26/16 16:00 70 11/26/16 16:00 30 11/26/16 15:48 97.7 67 14 107/63 99 Mechanical Ventilator 30 11/26/16 14:58 75 14 30 11/26/16 14:47 77 110/62 11/26/16 13:00 80 14 30 Intake and Output 11/26/16 11/27/16 19:00 07:00 Intake Total 770 ml 160 ml Output Total 300 ml 350 ml Balance 470 ml -190 ml Free Water 200 ml 100 ml Tube Feeding 330 ml 60 ml Other 240 ml Output Urine Total 300 ml 350 ml Objective General Appearance: cachetic HEENT: normocephalic, atraumatic Respiratory/Chest: chest wall non-tender, lungs clear Cardiovascular: normal peripheral pulses, normal rate Abdomen: soft, non tender Genitourinary: normal external genitalia Extremities: no cyanosis Skin: no rash, no lesions Laboratory Tests 11/27/16 03:15: White Blood Count 11.5H, Red Blood Count 3.53L, Hemoglobin 9.1L, Hematocrit 28.5L, Mean Corpuscular Volume 81, Mean Corpuscular Hemoglobin 25.8L, Mean Corpuscular Hemoglobin Concent 31.9L, Red Cell Distribution Width 17.6H, Platelet Count 534H, Mean Platelet Volume 6.6, Neutrophils (%) (Auto) 65.2, Lymphocytes (%) (Auto) 13.0L, Monocytes (%) (Auto) 18.5H, Eosinophils (%) (Auto ) 2.8, Basophils (%) (Auto) 0.5, Sodium Level 143, Potassium Level 4.3, Chloride Level 102, Carbon Dioxide Level 22, Anion Gap 19H, Blood Urea Nitrogen 96H, Creatinine 1.2, Estimat Glomerular Filtration Rate , Glucose Level 121H, Calcium Level 9.4, Total Bilirubin 0.4, Aspartate Amino Transf (AST/SGOT) 32, Alanine Aminotransferase (ALT/SGPT) 24, Alkaline Phosphatase 320H, Pro-B-Type Natriuretic Peptide 8749H, Total Protein 6.2L, Albumin 2.0L, Globulin 4.2, Albumin/Globulin Ratio 0.4L Current Medications Medications (Trade) Dose Ordered Sig/Jose Luis Route PRN Reason Start Time Stop Time Status Last Admin Dose Admin Acetaminophen (Tylenol) 650 mg Q4H PRN ORAL FEVER 11/18/16 09:45 12/18/16 09:44 Artificial Tears (Akwa-Tears) 2 drop BID BOTH EYES 11/25/16 09:00 12/25/16 08:59 11/27/16 08:04 Dextrose (Dextrose 50%) STAT PRN IV Hypoglycemia 11/18/16 09:45 12/18/16 09:44 Heparin Sodium (Porcine) (Heparin 5000 units/ml) 5,000 units EVERY 12 HOURS SUBQ 11/18/16 21:00 12/18/16 20:59 11/27/16 08:05 Hydralazine HCl (Apresoline) 25 mg Q6HR GT 11/23/16 12:00 12/23/16 11:59 11/27/16 11:43 Lansoprazole (Prevacid) 30 mg Q12HR GT 11/20/16 21:00 12/20/16 20:59 11/27/16 08:04 Methimazole (Tapazole) 7.5 mg DAILY GT 11/18/16 12:00 12/18/16 11:59 11/27/16 08:04 Ondansetron HCl (Zofran) 4 mg Q6H PRN IVP Nausea & Vomiting 11/18/16 09:45 12/18/16 09:44 Polyethylene Glycol (Miralax) 17 gm DAILYPRN PRN ORAL Constipation 11/18/16 09:45 12/18/16 09:44 Propranolol HCl (Inderal) 20 mg Q8HR GT 11/25/16 14:00 12/25/16 13:59 11/27/16 06:40 Tamsulosin HCl (Flomax) 0.4 mg BEDTIME GT 11/18/16 21:00 12/18/16 20:59 11/26/16 21:48 TRACI HAILE Nov 27, 2016 12:11
--- NOTE | 2016-11-27 13:30 | General Progress Note ---
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 Dc planning- Disposition issues ! Subjective ROS Limited/Unobtainable: Yes Allergies: Coded Allergies: PIPERACILLIN (Verified Allergy, Unknown, 11/18/16) TAZOBACTAM (Verified Allergy, Unknown, 11/18/16) Objective Last 24 Hour Vital Signs Date Time Temp Pulse Resp B/P Pulse Ox O2 Delivery O2 Flow Rate FiO2 11/27/16 12:33 82 14 30 11/27/16 12:00 30 11/27/16 11:44 98.0 85 14 120/73 99 Mechanical Ventilator 30 11/27/16 11:43 120/73 11/27/16 10:36 82 14 30 11/27/16 08:46 57 14 30 11/27/16 08:00 72 11/27/16 08:00 97.7 71 14 115/52 99 Mechanical Ventilator 30 11/27/16 08:00 30 11/27/16 07:05 71 14 30 11/27/16 06:40 72 120/68 11/27/16 06:40 120/68 11/27/16 05:04 72 14 30 11/27/16 04:00 30 11/27/16 04:00 97.5 78 14 120/68 99 Mechanical Ventilator 30 11/27/16 04:00 73 11/27/16 02:58 55 14 30 11/27/16 01:11 61 14 30 11/27/16 00:43 119/51 11/27/16 00:00 30 11/27/16 00:00 70 11/27/16 00:00 98.6 74 14 119/74 Mechanical Ventilator 30 11/26/16 23:08 60 14 30 11/26/16 21:48 78 122/55 11/26/16 20:50 78 14 30 11/26/16 20:00 97.3 91 14 122/55 Mechanical Ventilator 30 11/26/16 20:00 30 11/26/16 20:00 74 11/26/16 19:16 75 14 30 11/26/16 17:23 117/52 11/26/16 16:50 62 14 30 11/26/16 16:00 70 11/26/16 16:00 30 11/26/16 15:48 97.7 67 14 107/63 99 Mechanical Ventilator 30 11/26/16 14:58 75 14 30 11/26/16 14:47 77 110/62 Intake and Output 11/26/16 11/27/16 19:00 07:00 Intake Total 770 ml 160 ml Output Total 300 ml 350 ml Balance 470 ml -190 ml Free Water 200 ml 100 ml Tube Feeding 330 ml 60 ml Other 240 ml Output Urine Total 300 ml 350 ml Laboratory Tests 11/27/16 03:15: White Blood Count 11.5H, Red Blood Count 3.53L, Hemoglobin 9.1L, Hematocrit 28.5L, Mean Corpuscular Volume 81, Mean Corpuscular Hemoglobin 25.8L, Mean Corpuscular Hemoglobin Concent 31.9L, Red Cell Distribution Width 17.6H, Platelet Count 534H, Mean Platelet Volume 6.6, Neutrophils (%) (Auto) 65.2, Lymphocytes (%) (Auto) 13.0L, Monocytes (%) (Auto) 18.5H, Eosinophils (%) (Auto ) 2.8, Basophils (%) (Auto) 0.5, Sodium Level 143, Potassium Level 4.3, Chloride Level 102, Carbon Dioxide Level 22, Anion Gap 19H, Blood Urea Nitrogen 96H, Creatinine 1.2, Estimat Glomerular Filtration Rate , Glucose Level 121H, Calcium Level 9.4, Total Bilirubin 0.4, Aspartate Amino Transf (AST/SGOT) 32, Alanine Aminotransferase (ALT/SGPT) 24, Alkaline Phosphatase 320H, Pro-B-Type Natriuretic Peptide 8749H, Total Protein 6.2L, Albumin 2.0L, Globulin 4.2, Albumin/Globulin Ratio 0.4L Height (Feet): 5 Height (Inches): 8.00 Weight (Pounds): 192 General Appearance: no apparent distress Neck: limited range of motion Cardiovascular: tachycardia Respiratory/Chest: decreased breath sounds Abdomen: soft, distended Objective other PE not changed SUNITA MITCHELL Nov 27, 2016 13:30
--- NOTE | 2016-11-27 18:55 | Cardiology Progress Note ---
Assessment/Plan Assessment/Plan 1. Chronic respiratory failure. 2. Sinus tachycardia, multifactorial, likely combination of hyperthyroidism inflammation. 3. Anemia. 4. Azotemia. 5. Pleural effusion. 6. Heart failure with preserved ejection fraction. 7. Hyperthyroidism. 8. Pneumothorax hr ok at this time on inderal is already on metamizole stool ob neg echo did not show any pericardial efffuiosn but pleural effusion cxr still shows pt still with increase tele sinus with occsion pac pvc Subjective ROS Limited/Unobtainable: Yes Subjective on the vent not communicative Objective Last 24 Hour Vital Signs Date Time Temp Pulse Resp B/P Pulse Ox O2 Delivery O2 Flow Rate FiO2 11/27/16 17:39 116/70 11/27/16 16:45 85 14 30 11/27/16 16:00 30 11/27/16 16:00 98.1 84 14 136/69 99 Mechanical Ventilator 11/27/16 16:00 88 11/27/16 14:54 88 14 30 11/27/16 13:44 86 118/86 11/27/16 12:33 82 14 30 11/27/16 12:00 30 11/27/16 12:00 82 11/27/16 11:44 98.0 85 14 120/73 99 Mechanical Ventilator 11/27/16 11:43 120/73 11/27/16 10:36 82 14 30 11/27/16 08:46 57 14 30 11/27/16 08:00 72 11/27/16 08:00 97.7 71 14 115/52 99 Mechanical Ventilator 11/27/16 08:00 30 11/27/16 07:05 71 14 30 11/27/16 06:40 72 120/68 11/27/16 06:40 120/68 11/27/16 05:04 72 14 30 11/27/16 04:00 30 11/27/16 04:00 97.5 78 14 120/68 99 Mechanical Ventilator 11/27/16 04:00 73 11/27/16 02:58 55 14 30 11/27/16 01:11 61 14 30 11/27/16 00:43 119/51 11/27/16 00:00 30 11/27/16 00:00 70 11/27/16 00:00 98.6 74 14 119/74 Mechanical Ventilator 11/26/16 23:08 60 14 30 11/26/16 21:48 78 122/55 11/26/16 20:50 78 14 30 11/26/16 20:00 97.3 91 14 122/55 Mechanical Ventilator 30 11/26/16 20:00 30 11/26/16 20:00 74 11/26/16 19:16 75 14 30 General Appearance: no apparent distress, on vent, patient on isolation - comfortable Intake and Output 11/26/16 11/27/16 19:00 07:00 Intake Total 770 ml 160 ml Output Total 300 ml 350 ml Balance 470 ml -190 ml Free Water 200 ml 100 ml Tube Feeding 330 ml 60 ml Other 240 ml Output Urine Total 300 ml 350 ml Laboratory Tests Test 11/27/16 03:15 White Blood Count 11.5 K/UL (4.8-10.8) H Red Blood Count 3.53 M/UL (4.70-6.10) L Hemoglobin 9.1 G/DL (14.2-18.0) L Hematocrit 28.5 % (42.0-52.0) L Mean Corpuscular Volume 81 FL (80-99) Mean Corpuscular Hemoglobin 25.8 PG (27.0-31.0) L Mean Corpuscular Hemoglobin Concent 31.9 G/DL (32.0-36.0) L Red Cell Distribution Width 17.6 % (11.6-14.8) H Platelet Count 534 K/UL (150-450) H Mean Platelet Volume 6.6 FL (6.5-10.1) Neutrophils (%) (Auto) 65.2 % (45.0-75.0) Lymphocytes (%) (Auto) 13.0 % (20.0-45.0) L Monocytes (%) (Auto) 18.5 % (1.0-10.0) H Eosinophils (%) (Auto) 2.8 % (0.0-3.0) Basophils (%) (Auto) 0.5 % (0.0-2.0) Sodium Level 143 mEQ/L (135-145) Potassium Level 4.3 mEQ/L (3.4-4.9) Chloride Level 102 mEQ/L (98-107) Carbon Dioxide Level 22 mEQ/L (20-30) Anion Gap 19 (5-15) H Blood Urea Nitrogen 96 mg/dL (7-23) H Creatinine 1.2 mg/dL (0.7-1.2) Estimat Glomerular Filtration Rate mL/min (>60) Glucose Level 121 mg/dL (74-106) H Calcium Level 9.4 mg/dL (8.6-10.2) Total Bilirubin 0.4 mg/dL (0.0-1.2) Aspartate Amino Transf (AST/SGOT) 32 U/L (5-40) Alanine Aminotransferase (ALT/SGPT) 24 U/L (3-41) Alkaline Phosphatase 320 U/L (40-129) H Pro-B-Type Natriuretic Peptide 8749 pg/mL (0-450) H Total Protein 6.2 g/dL (6.6-8.7) L Albumin 2.0 g/dL (3.5-5.2) L Globulin 4.2 g/dL Albumin/Globulin Ratio 0.4 (1.0-2.7) L JULIÁN ARANGO Nov 27, 2016 18:55
[2016-11-27] MEDS: Tamsulosin 0.4mg cap GT SCH (20:37)
[2016-11-27] MEDS ORDERED: Calcium Chloride 10% 10ml carpuject IVP ONE (23:35)
[2016-11-27] MEDS ORDERED: Sodium Bicarbonate 50ml Carp ONE (23:35)
[2016-11-27] MEDS ORDERED: EPINEPHrine 1mg/10ml Syringe IV ONE (23:35)
[2016-11-28] MEDS: HydrALAZINE 25mg tab GT SCH
--- NOTE | 2016-11-28 02:27 | Emergency Room Report ---
History of Present Illness General Chief Complaint: Abnormal Labs Source: Medical Record Present Illness HPI This is a 76-year-old male who was a minute the hospital for acute kidney injury , UTI, edema. He said has chronic respiratory failure and has a tracheostomy. I responded to a CODE BLUE. Per nursing staff, patient became bradycardic and then asystole. On arrival, CPR was started started. Patient received 1 dose of epinephrine. Please see the CODE BLUE sheet for the full list of medication. During the code, patient received a total of 4 doses of epinephrine. I gave him 2 doses of bicarbonate one dose of calcium chloride. He remained in asystole. There was good Doppler pulse with CPR. None without CPR. Because there was no spontaneous pulse and he remains and asystole, I called the code and pronounce him at 11:50 PM. His family happened to be in the lobby on her way up to see him. I discussed this with his family who wanted No CPR. At that point I already made the decision to stop the code. Allergies: Coded Allergies: PIPERACILLIN (Verified Allergy, Unknown, 11/18/16) TAZOBACTAM (Verified Allergy, Unknown, 11/18/16) Patient History Past Medical History: see triage record, old chart reviewed, other Past Surgical History: other Pertinent Family History: none Social History: Denies: smoking Immunizations: other Reviewed Nursing Documentation: PMH: Agreed, PSxH: Agreed Nursing Documentation-PMH Past Medical History Deferred: Pt Cognitively Impaired Past Medical History: No History, Except For Hx Cardiac Problems: Yes - anemia, CO Hx Diabetes: Yes History Of Psychiatric Problem: Yes - schizophrenia Hx Neurological Problems: Yes - encephalopathy Hx Seizures: Yes Review of Systems All Other Systems: limited - Unable to obtain secondary to his condition Physical Exam Vital Signs Date Time Temp Pulse Resp B/P Pulse Ox O2 Delivery O2 Flow Rate FiO2 11/18/16 07:19 102 20 115/66 98 Mechanical Ventilator 100 11/18/16 08:14 98.8 General Appearance: other - Unresponsive, Chronically Ill Eyes: bilateral eye other - No response ENT: normal pharynx Neck: other - Tracheostomy intact Respiratory: other - No respiration without [id number]. Mild rales Cardiovascular #1: other - Asystole without CPR. Gastrointestinal: other - Protuberant Musculoskeletal: other - Generalized edema Neurologic: other - No response Procedures Critical Care Time Critical Care Time Critical care is mandated in this patient who presented with cardiac arrest. Patient require my urgent intervention to attenuate the risks of metabolic collapse which may lead to cardiovascular collapse and . Critical care time is 35 minutes excluding any reportable procedure. Critical care time included evaluation, multiple reevaluation, looking at old charts, interpreting laboratory and diagnostic data, discussing case with patient and family and consultants, and charting. Medical Decision Making Diagnostic Impression: Primary Impression: Cardiac arrest ER Course Patient presents with cardiac arrest. Code was unsuccessful. Patient pronounced at 11:50 PM. I notify primary care Dr. I discussed with family also. Last Vital Signs Date Time Temp Pulse Resp B/P Pulse Ox O2 Delivery O2 Flow Rate FiO2 11/27/16 23:16 64 14 30 11/27/16 21:29 118/72 11/27/16 19:56 98.1 99 11/27/16 16:00 Mechanical Ventilator Status: worsened Disposition: Condition: Referrals: [facility],REFERRING (PCP) FREDDIE HADDAD M.D. Nov 28, 2016 02:27
[2016-11-28] MEDS ORDERED: NS 275ml ONE (03:25)
[2016-11-28] MEDS ORDERED: Sterile Water Irrig 1000ml IRRIG ONE (03:25)
--- NOTE | 2016-12-01 14:44 | Discharge Summary ---
Discharge Summary Hospital Course Date of Admission Nov 18, 2016 at 08:21 Date of Discharge Nov 28, 2016 at 03:26 Admitting Diagnosis kidney injury HPI Marisol Galarza is a 76 year old male who was admitted on Nov 18, 2016 at 08:21 for Kidney Injury Hospital Course summary #[id number] Discharge Discharge Disposition Patient , pronounced at 2350 11/27/16 Discharge Diagnoses: Mitul (Afsanehjoya)Emelina NP Dec 01, 2016 14:44
--- NOTE | 2016-12-02 00:15 | Discharge Summary 2 SIG ---
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 for abnormal laboratories. Upon evaluation in the emergency room, it was found that the patient had acute renal failure with BUN -158 and creatinine -1.7. The patient was anemic. Hemoglobin was 8.2, hematocrit - 24.6, and WBC -10.9. Sodium - 129. Lactic acid - 1.6. Troponin was negative. Urinalysis revealed few bacteria, pyuria, +3 leukocyte esterase, and +1 protein. Initial chest x-ray revealed moderate bilateral pleural effusion with interstitial pulmonary edema. The patient was admitted for further management. ADMITTING DIAGNOSES: 1. Acute on chronic respiratory failure. 2. Probable ventilator associated PNA 3. VDRF, tracheostomy status 4. Acute renal failure. 5. Bilateral pleural effusion, r/o empyema. 6. Dysphagia. 7. Gastrostomy tube. 8. Anemia. HOSPITAL STAY: The patient was admitted to [facility]. Cardiology, Nephrology, and ID consults were requested. Ventilator support provided. Ventilator and tracheostomy care provided. Pulmonary toilet provided. Settings titrated as needed. The patient undergone ultrasound-guided thoracentesis of left pleural effusion, which yielded 3.3 liter of pleural fluid. Cytology of pleural fluid was negative for malignant cells. Chest x-ray post thoracentesis revealed large left pneumothorax. Followup chest x-ray revealed persistent left pneumothorax, likely trapped lung, unlikely tension component . Chest X ray was followed on a daily basis, no change in persistent left pneumothorax. The patient had a trapped lung, and the chest tube would not unfortunately solve the problem. Infectious Disease doctor followed with antibiotic regimen. Per Infectious Disease doctor, the patient possibly had ventilator-associated pneumonia. Sputum culture revealed Ute, colonized as per ID. Urine culture revealed Ute, status post treatment. Blood culture were negative. The patient was treated empirically for probable ventilator-associated pneumonia. [place] followed. Echocardiogram revealed preserved ejection fraction of 55% and right ventricular systolic pressure of 18. There was evidence of pleural effusion, but no pericardial effusion. Pro BNP was trending up and was elevated. According to remedial project manager, the patient had a heart failure with preserved ejection fraction. The patient exhibited sinus tachycardia, and per remedial project manager, sinus tachycardia was likely multifactorial, due to hyperthyroidism and infection. The patient was noted to have low TSH and high free T4. It was a new onset of hyperthyroidism for this patient. The patient was started on methimazole as well as Inderal, which helped to control heart rate. Venous Duplex bilateral lower extremity revealed acute DVT of right lower extremity in distal popliteal vein. Since the thrombus was below the knee, and the patient already was anemic, no anticoagulation was started. The patient was on Heparin prophylactically . Blood pressure was managed with hydralazine and Inderal. Cold Header Operator recommended slow hydration and followup with the renal parameters, avoid neurotoxic, anemia workup, and transfuse p.r.n. Renal parameters were slowly improving. At the day of expiration, BUN - 96 and creatinine - 1.2. Abdominal ultrasound revealed bilateral echogenic kidney consistent with medical renal disease. Hemoglobin and hematocrit remained on the baseline. No need for transfusion. Stool for OB was negative. Strict aspiration precautions were maintained. The patient was on G-tube feeding and was able to tolerate. Blood sugar was managed with sliding scale of insulin. Seizure precautions were maintained. No seizure activities while in the hospital. Wound care nurse had seen and evaluated the patient. Wound care was provided as per the wound care nurse recommendation. Abdominal ultrasound revealed cholelithiasis and questionable acute cholecystitis as well as bilateral echogenic kidneys. It was also suggestive of possible hepatocellular disease. HIDA scan subsequently was done to rule out acute cholecystitis, which was negative. On 11/27/2016 at 2330 hours, Deshaun Haque was called. The patient became bradycardic and then went to asystole rhythm. CPR was started The patient was bagged. After 20 minutes of performing ACLS algorithm , all the attempts were unsuccessful. The patient was pronounced by the ED doctor at 2350 hours on 11/27/2016. Cause of : cardiopulmonary arrest. DISCHARGE DIAGNOSES: 1. Acute on chronic respiratory failure. 2. Sepsis due to ventilator associated pneumonia 3. Probable ventilator-associated pneumonia. 4. Bilateral pleural effusion. 5. Status post large left persistent pneumothorax 6. 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 7. Ventilator-dependent respiratory failure. 8. Tracheostomy status . 9. Acute renal failure on chronic kidney disease. 10. Heart failure with preserved ejection fraction. 11. Cholelithiasis. 12. Acute deep venous thrombosis, right lower extremity popliteal vein 13. Dysphagia, gastrostomy tube. 14. Chronic anoxic encephalopathy. 15. Sinus tachycardia ( due to hyperthyroidism and infectious process) . 16. Hyperthyroidism, new onset. 17. Seizure disorder. 18. History of myocardial infarction. 19. Diabetes. 20. Anemia. 21. Hypertension. 22. Sacral decubitus, stage II present on admission. 23. , stage II, present on admission. Of note, Otto Wise M.D. I have been assigned to dictate discharge summary on this account and I was not involved in the patient's management. Emelina [facility] DR: Rocio JOB#: [id number] CC: FROILAN
== END 2016-11-28 03:26 | disposition expired | DRG 720 ==
LOC: EDBD 07:25 → EMR 07:58 → 2W 08:21 → EDBEDREQ 09:19 → 2W 16:32
PROC: 5A1955Z Respiratory Ventilation, Greater than 96 Consecutive Hours (ICD-10-PCS; principal; 2016-11-18)
PROC: 0W9B3ZZ Drainage of Left Pleural Cavity, Percutaneous Approach (ICD-10-PCS; 2016-11-18)
PROC: 5A12012 Performance of Cardiac Output, Single, Manual (ICD-10-PCS; 2016-11-28)
DX: A41.9 Sepsis, unspecified organism (principal); N17.0 Acute kidney failure with tubular necrosis; J96.20 Acute and chronic respiratory failure, unspecified whether with hypoxia or hypercapnia; J95.851 Ventilator associated pneumonia; J90 Pleural effusion, not elsewhere classified; G93.40 Encephalopathy, unspecified; G93.1 Anoxic brain damage, not elsewhere classified; Z99.11 Dependence on respirator [ventilator] status; N39.0 Urinary tract infection, site not specified; D64.9 Anemia, unspecified; Z43.0 Encounter for attention to tracheostomy; Z43.1 Encounter for attention to gastrostomy; Z86.74 Personal history of sudden cardiac arrest; R13.10 Dysphagia, unspecified; I12.9 Hypertensive chronic kidney disease with stage 1 through stage 4 chronic kidney disease, or unspecified chronic kidney disease; E11.22 Type 2 diabetes mellitus with diabetic chronic kidney disease; N18.9 Chronic kidney disease, unspecified; Z88.0 Allergy status to penicillin; K80.20 Calculus of gallbladder without cholecystitis without obstruction; I82.431 Acute embolism and thrombosis of right popliteal vein; G40.909 Epilepsy, unspecified, not intractable, without status epilepticus; I25.2 Old myocardial infarction; E05.90 Thyrotoxicosis, unspecified without thyrotoxic crisis or storm; L89.152 Pressure ulcer of sacral region, stage 2; L89.222 Pressure ulcer of left hip, stage 2; E88.09 Other disorders of plasma-protein metabolism, not elsewhere classified; E86.0 Dehydration; I50.30 Unspecified diastolic (congestive) heart failure; I69.398 Other sequelae of cerebral infarction; J93.9 Pneumothorax, unspecified; R00.0 Tachycardia, unspecified
CPT/HCPCS: 36415; 71010; 76700; 76942; 78266; 80053; 80061; 80202; 81003; 82270; 82550; 82553; 82607; 82728; 82746; 82962; 82977; 83540; 83550; 83605; 83735; 83880; 84100; 84439; 84443; 84480; 84484; 84550; 85025; 85610; 85730; 86140; 87040; 87070; 87081; 87086; 87205; 88104; 89051; 92950; 93005; 93306; 93970; 94002; 94003; J0171